=== PATIENT | female | born 1950 | race American Indian/Alaskan Native ===

== ENCOUNTER 2018-03-18 07:26 | Day surgery (SDC) | payer MEDICARE, OTHER, SELFPAY ==
[2018-03-18] VITALS (8 sets, daily range): BP systolic 105–133; BP diastolic 64–89; PULSE 72–98; RESP 12–20; TEMP 36.3–36.6; O2SAT 93–94; BMI 53.1
--- NOTE | 2018-03-18 | PATH_ITS ---
[facility] Accession Number: [id number] . 01 Material submitted: . POLYP AT CECUM . 02 Diagnosis: Cecum, Polyp, Biopsy: Tubulovillous adenoma. No evidence of malignancy or high-grade dysplasia. [facility]/03/22/2018 . 02 Electronically signed: . Tammy Gibbons MD, Pathologist NPI- [id number] . 01 Gross description: . POLYP AT CECUM: Received in formalin are 3 fragment(s) of marquis, soft tissue measuring 0.4 x 0.4 x 0.3 cm to 0.1 x 0.1 x 0.1 cm submitted entirely in 1 cassette(s) /TRC /TRC . 02 Pathologist provided ICD-10: D12.0 . 02 CPT . 947752 Performed at: 01 [facility] [address] [place] [address], [place], [place] [id number] MD Boom Bruno MD Phone: [phone] Performed at: 02 [facility] [address] [place], [place] [id number] MD Tommy Fried MD Phone: [phone]
[2018-03-18] MEDS: SODIUM CHLORIDE 0.9% 1,000 ML 200 ML IV (08:37)
--- NOTE | 2018-03-18 08:38 | SUR.PREOP ---
JUVENTINO LEON STARTED IV.
--- NOTE | 2018-03-18 09:10 | P.HP_ITS ---
History of Present Illness Chief complaint: colonoscopy [id number] Narrative: Merle Chu is a 67 year old female who had a recent episode of diverticulitis. This is with her 1st experience with diverticulitis and she has never had a colonoscopy. She presents today for her 1st screening study. Patient History Family & Social History Family History: Reviewed 03/18/18 by Alissa Weiner MD Social History: household members none Meds Home Medications Medication Instructions Recorded Confirmed Type ibuprofen [Advil] 200 mg PO PRN PRN 03/18/18 03/18/18 History insulin detemir U-100 [Levemir 4 unit SUB-Q PRN PRN 03/18/18 03/18/18 History FlexTouch U-100 Insuln] metformin 500 mg PO DAILY 03/18/18 03/18/18 History tramadol 50 mg PO Q6HP PRN 03/18/18 03/18/18 History Allergies Allergy/AdvReac Type Severity Reaction Status Date / Time adhesive [ADHESIVE] Allergy Severe RASH Verified 03/18/18 07:59 PAPER/SILK TAPE OK aspartame [ASPARTAME] Allergy Severe COMA Verified 03/18/18 08:38 iodine [IODINE] Allergy Severe SOB, RASH Verified 03/18/18 07:59 latex [LATEX] Allergy Severe RASH Verified 03/18/18 07:59 Sulfa (Sulfonamide Allergy Severe RASH Verified 03/18/18 07:59 Antibiotics) [SULFA (SULFONAMIDE ANTIBIOTICS)] codeine [CODEINE] AdvReac Severe PROJECTILE Verified 03/18/18 07:59 VOMITING hydrocodone [HYDROCODONE] AdvReac Severe PROJECTILE Verified 03/18/18 07:59 VOMITING oxycodone [From OXYCONTIN] AdvReac Severe PROJECTILE Verified 03/18/18 07:59 VOMITING Review of Systems Review of Systems All systems reviewed & are unremarkable except as noted in HPI and below Exam Vital Signs (past 8 hours): Vital Signs - 8 hr 3 03/18/18 08:22 Temperature 97.3 F L Pulse Rate 98 H Respiratory Rate 20 Blood Pressure 120/78 Pulse Oximetry 94 Pulse Oximetry 94 Oxygen Delivery Method Room Air Narrative Exam Narrative: Pleasant obese lady in no obvious distress HEENT: Normocephalic and atraumatic, pupils equal round reactive to light accommodation with anicteric sclera Lungs: Clear to auscultation bilaterally Heart: Regular rate and rhythm Abdomen: Soft, obese, active bowel sounds Extremities: Trace edema bilaterally Assessment & Plan Plan: Plan: Very pleasant 67-year-old lady here for screening colonoscopy. She has a recent episode of diverticulitis in all her symptoms are now resolved. We discussed the risks and benefits of the procedure the patient expresses desire to continue today
--- NOTE | 2018-03-18 09:24 | SUR.OPER ---
glasses in labeled container with patient to discharge.
--- NOTE | 2018-03-18 09:48 | PM.OP.1 ---
Operative Date/Time/Diagnoses - Date of procedure: 03/18/18 Time of procedure: 09:48 Pre-op diagnosis: Screening colonoscopy Diverticulitis Post-op diagnosis: same Procedure & Clinicians Procedure: Colonoscopy to the cecum with polypectomy x2 Same procedure as scheduled: Yes Indications: No prior colonoscopy Surgeon: Alissa Weiner Click Yes if Unassisted: Yes Anesthesia Type: Sedation (Versed 6 mg; fentanyl 200 mcg) Operative Notes Findings: 1. Adequate prep 2. Two polyps in the cecum. One was removed with cold forceps and the other was removed with snare cautery. The smaller with 1-2 mm and the larger with 5 mm 3. Significant sigmoid diverticulosis with some narrowing in the mid to distal sigmoid region. No true stricture or obstruction 4. No evidence of colitis or other mucosal abnormality 5. Grade 1 internal hemorrhoids Closure Type: not applicable Specimen(s): other (Two polyps from the cecum removed and submitted for pathology) Estimated Blood Loss (mL): 1 Procedure in detail: After obtaining informed consent, the patient was brought to the GI suite and placed in the left lateral decubitus position on the examination table. After placement of appropriate monitors, the patient was given incremental doses of Versed and Fentanyl until an appropriate level of sedation was achieved. A time out was held per SCOAP protocol. A digital rectal examination was performed and did not reveal any masses or obstructing lesions. The colonoscope was gently passed into the patient's anus and the entire colon navigated to the level of the cecum with minimal difficulty. Once in the cecum, the scope was withdrawn being sure to go before and beyond all mucosal folds and prominences and get an excellent examination. The findings are noted above. At the level of the rectal vault, the scope was retroflexed and the internal anal canal was examined. The scope was straightened and air aspirated from the colon. The instrument was removed from the patient's body and the procedure was concluded. The patient was allowed to awaken from sedation without difficulty and taken to the post-anesthesia care unit in good condition. Total sedation time 28 min Total withdrawal time 14 min Complications: none Condition: stable Disposition: PACU Plan for aftercare: 1. Discharge to home 2. Plan for next colonoscopy in 5 years or as clinically indicated 3. We will contact you by mail with pathology results and any other recommendations
[2018-03-18] MEDS: MIDAZOLAM 5 MG/5 ML VIAL 6 MG IV (09:56)
[2018-03-18] MEDS: fentaNYL 250 MCG/5 ML INJ IV (09:58)
--- NOTE | 2018-03-18 10:42 | SUR.PREOP ---
pt to opd , vss, resting, taking fliuds , waiting for ride , no co's
== END 2018-03-18 11:12 | disposition home or self-care (01) ==
PROVIDERS: Family Provider Family Medicine; PCP Family Medicine; Visit Provider Surgery
PROC: 0DJD8ZZ Inspection of Lower Intestinal Tract, Via Natural or Artificial Opening Endoscopic (ICD-10-PCS; CPT 45378; principal; 2018-03-18 08:45)
DX: Z12.11 Encounter for screening for malignant neoplasm of colon (principal); K57.30 Diverticulosis of large intestine without perforation or abscess without bleeding; K64.0 First degree hemorrhoids; D12.0 Benign neoplasm of cecum
CPT/HCPCS: 45385; 45380; 88305; 99152; 99153; J2250; J3010

== ENCOUNTER 2018-03-28 13:29 | Observation (INO) | payer MEDICARE, OTHER, SELFPAY ==
[2018-03-28] VITALS (10 sets, daily range): BP systolic 145–192; BP diastolic 74–95; PULSE 55–68; RESP 14–19; TEMP 36.7–36.8; O2SAT 96–99; BMI 64.0
--- NOTE | 2018-03-28 13:46 | DI.RAD.S_ITS ---
PROCEDURE: XR CHEST 1V INDICATIONS: chest pain TECHNIQUE: One view of the chest was acquired. COMPARISON: None. FINDINGS: Surgical changes and devices: None. Lungs and pleura: No pleural effusions or pneumothorax. Lungs are clear. Mediastinum: Mediastinal contours appear normal. Heart size is normal. Bones and chest wall: No suspicious bony lesions. Overlying soft tissues appear unremarkable. IMPRESSION: No acute disease Dictated by: Erick Costa M.D. on 03/28/2018 at 14:53 Approved by: Erick Costa M.D. on 03/28/2018 at 14:56
[2018-03-28 14:20] LABS: Add Manual Diff / Slide Review NO; Eosinophils Percent Auto 1.6 % (2-4); Hematocrit 40.1 % (36-46); Hemoglobin 13.7 g/dL (12.0-16.0); Lymphocytes Percent Auto 35.9 % (25-40); Mean Corpuscular HGB Conc 34.1 % (30-36); Mean Corpuscular Hemoglobin 30.7 PG (26-34); Mean Corpuscular Volume 89.8 fL (80-100); Monocytes Percent Auto 7.6 % (3-14); Neutrophils Absolute Auto 2700 /uL (3000-5900); Neutrophils Percent Auto 53.9 % (50-75); Platelet Count 203 X10^3/uL (150-400); Red Blood Cell Count 4.47 X10^6/uL (4.0-5.2); Red Cell Distribution Width 13.8 % (11.6-14.8)
[2018-03-28 14:25] LABS: INR 1.1 (0.9-1.3); Prothrombin Time 11.6 SECONDS (10.1-12.7)
[2018-03-28 14:28] LABS: PTT Partial Thromboplastin Tim 32 SECONDS (26.4-36.2)
[2018-03-28 14:29] LABS: Alanine Aminotransferase 23 IU/L (9-52); Albumin 3.7 g/dL (3.5-5.0); Albumin Globulin Ratio 0.9 (1.0-2.8); Alkaline Phosphatase 87 U/L (38-126); Aspartate Aminotransferase 25 IU/L (14-36); Bilirubin Total 0.9 mg/dL (0.2-1.3); Blood Urea Nitrogen 12 mg/dL (7-17); Calcium 8.8 mg/dL (8.4-10.2); Carbon Dioxide 30 mmol/L (22-32); Chloride 102 mmol/L (98-107); Creatine Kinase 67 U/L (30-135); Estimated Glomerular Filt Rate > 60.0 mL/min (>60); Globulin 3.9 g/dL (1.7-4.1); Glucose 105 mg/dL (80-110); HEMOLYSIS < 15 (0-50); Lipase 110 U/L (23-300); Potassium 3.8 mmol/L (3.4-5.1); Sodium 140 mmol/L (137-145); Total Protein 7.6 g/dL (6.3-8.2)
[2018-03-28 14:41] LABS: Troponin I < 0.012 ng/mL (0.01-0.034)
[2018-03-28] MEDS: SODIUM CHLORIDE 0.9% 1,000 ML 1000 ML IV ×2 (14:48→17:13)
--- NOTE | 2018-03-28 15:35 | DI.CT.S_ITS ---
PROCEDURE: CT HEAD/BRAIN WO CON INDICATIONS: dizziness, GARCIA TECHNIQUE: Noncontrast 4.5 mm thick angled axial sections acquired from the foramen magnum to the vertex, with coronal and sagittal reformats. For radiation dose reduction, the following was used: automated exposure control, adjustment of mA and/or kV according to patient size. COMPARISON: None. FINDINGS: Image quality: Excellent. CSF spaces: Basal cisterns are patent. No extra-axial fluid collections. The ventricles are symmetric in size and shape. Brain: No intracranial bleeds or masses. There is cerebral volume loss for age, with resultant ventricular and sulcal prominence. There are periventricular and deep white matter chronic small vessel ischemic changes. There is intracranial internal carotid artery atherosclerosis. Skull and face: Calvarium and visualized facial bones appear intact, without suspicious lesions. There is hyperostosis frontalis. Sinuses: Visualized sinuses and mastoids are clear. IMPRESSION: No acute intracranial process Dictated by: Erick Costa M.D. on 03/28/2018 at 15:58 Approved by: Erick Costa M.D. on 03/28/2018 at 16:01
--- NOTE | 2018-03-28 17:24 | DI.CT.S_ITS ---
PROCEDURE: CT ANGIO HEAD AND NECK INDICATIONS: persistent dizziness TECHNIQUE: Pre-contrast 4.5 mm thick sections acquired from the foramen magnum to the vertex. After the administration of intravenous contrast, 1 mm thick sections acquired from the aortic arch through the [place] of [place]. Post-contrast 4.5 mm thick sections then re-acquired from the foramen magnum to the vertex. 3-dimensional pzuzjql-bdfncaolj-fsjpbvoppl (MIP) and/or volume rendering reformats were acquired of the central intracranial vasculature and neck separately. COMPARISON: [facility], CT, CT HEAD/BRAIN WO CON, 03/28/2018, 15:32. FINDINGS: Image quality: Excellent. BRAIN: CSF spaces: Ventricles are normal in size and shape. Basal cisterns are patent. No extra-axial fluid collections. Brain: No midline shift. No intracranial bleeds or masses. Cross-white matter interface appears intact. Skull and face: Calvarium and facial bones appear intact, without suspicious lesions. Orbits appear normal. Sinuses: Sinuses and mastoids are clear. HEAD CT ANGIOGRAPHY: Anterior circulation: Intracranial internal carotid arteries are normal in size and flow. The flow within the paired anterior cerebral arteries is normal and symmetric. The flow within the middle cerebral arteries is normal and symmetric. The anterior communicating artery is seen. No aneurysms are seen. Posterior circulation: Visualized portions of the vertebral arteries demonstrate normal caliber, and join to form a normal appearing basilar artery. Flow within the posterior cerebral arteries is normal and symmetric. No aneurysms are seen. NECK CT ANGIOGRAPHY: Carotid system: The great vessels demonstrate a conventional anatomy as they arise from the aortic arch. The origins of the common carotid arteries appear patent. The common carotid arteries demonstrate normal caliber and courses. The bifurcation regions are both widely patent. The internal carotid arteries demonstrate normal calibers and courses. Posterior circulation: The origins of the vertebral arteries both appear widely patent. The more superior extracranial portions of both vertebral arteries also demonstrate normal courses and calibers. They join to form a normal appearing basilar artery. Soft tissues: Visualized neck soft tissues demonstrate no suspicious abnormalities. Bones: No suspicious bony lesions. Visualized cervical spine appears normally aligned. IMPRESSION: Negative head CTA. Negative neck CTA. No ICA stenosis. Any quantitative measurements of stenosis were performed using NASCET criteria. Dictated by: Erick Costa M.D. on 03/28/2018 at 18:55 Approved by: Erick Costa M.D. on 03/28/2018 at 18:59
--- NOTE | 2018-03-28 17:45 | PC.NURSE ---
CT Angio of head and neck
--- NOTE | 2018-03-28 18:04 | ED_ITS ---
HPI - Arrhythmia/Palpitations General Chief Complaint: Arrhythmia/Palpitations Stated Complaint: Pt states constant light headed and dizziness Time Seen by Provider: 03/28/18 13:53 Source: patient and family Mode of arrival: ambulatory Limitations: no limitations History of Present Illness HPI narrative: Patient presents to the emergency department today with a chief complaint of feeling dizzy more often than not since about 4 weeks ago. She has complained of dizziness upon standing despite any nausea, vomiting or diarrhea. She denies any upper respiratory symptoms including runny nose, sore throat or cough. She denies any recent trauma or other injury. She denies focal neurologic findings such as numbness, tingling or weakness. She does state that her dizziness became a bit worse last night hence her visit to the emergency department today. She complains of seemingly random episodes of palpitations without provocation or palliation. And none yet today. MD complaint: palpitations Onset (ago): week(s) Duration: now resolved Severity: moderate Related Data Home Medications Medication Instructions Recorded Confirmed No Known Home Medications 03/28/18 03/28/18 Allergies Allergy/AdvReac Type Severity Reaction Status Date / Time adhesive [ADHESIVE] Allergy Severe RASH Verified 03/18/18 07:59 PAPER/SILK TAPE OK aspartame [ASPARTAME] Allergy Severe COMA Verified 03/18/18 08:38 iodine [IODINE] Allergy Severe SOB, RASH Verified 03/18/18 07:59 latex [LATEX] Allergy Severe RASH Verified 03/18/18 07:59 Sulfa (Sulfonamide Allergy Severe RASH Verified 03/18/18 07:59 Antibiotics) [SULFA (SULFONAMIDE ANTIBIOTICS)] codeine [CODEINE] AdvReac Severe PROJECTILE Verified 03/18/18 07:59 VOMITING hydrocodone [HYDROCODONE] AdvReac Severe PROJECTILE Verified 03/18/18 07:59 VOMITING oxycodone [From OXYCONTIN] AdvReac Severe PROJECTILE Verified 03/18/18 07:59 VOMITING Review of Systems Review of Systems All systems reviewed & are unremarkable except as noted in HPI and below Constitutional Denies chills, Denies fever(s), Denies lethargy and Denies weakness Eyes Denies change in vision, Denies eye discharge, Denies irritation and Denies loss of vision ENT Ears, Nose, Mouth, and Throat: Denies change in voice, Reports dizziness, Denies neck pain and Denies sore throat Cardiovascular Denies chest pain, Denies irregular heart rhythm, Denies lightheadedness, Denies palpitations, Denies dyspnea, Denies dyspnea on exertion and Denies orthopnea Respiratory Denies cough, Denies dyspnea, Denies dyspnea on exertion and Denies wheezing Gastrointestinal Gastrointestinal: Denies abdominal pain, Denies change in bowel habits, Denies diarrhea, Denies nausea and Denies vomiting Genitourinary Denies hematuria, Denies flank pain, Denies urinary incontinence and Denies urinary urgency Musculoskeletal Denies neck pain Integumentary/Breasts Denies pruritus, Denies erythema, Denies rash and Denies wounds Neurologic Denies confusion, Reports dizziness, Denies loss of vision and Denies weakness Psychiatric Denies anxiety, Denies confusion, Denies depression, Denies homicidal ideation and Denies suicidal ideation Endocrine Denies palpitations Hematologic/Lymphatic Denies easy bruising Allergic/Immunologic Denies wheezing PFSH Social History household members: none Exam Narrative Exam Narrative: 67-year-old female resting comfortably in no obvious distress Initial Vital Signs Initial Vital Signs: Vital Signs Temperature 98.1 F 03/28/18 13:34 Pulse Rate 67 03/28/18 13:34 Respiratory Rate 16 03/28/18 13:34 Blood Pressure 160/95 H 03/28/18 13:34 Pulse Oximetry 96 03/28/18 13:34 Const General: cooperative and well developed Nutritional Appearance: well nourished and obese Orientation: alert, awake, oriented x3 and not confused [facility] Head: normocephalic and atraumatic Ears: external ears normal and TM's normal bilaterally Nose: external nose normal and No nasal discharge Face and sinus: sinuses nontender, face symmetric, no sinus tenderness and No dry mucous membranes Mouth: oral mucosae normal and moist mucous membranes Teeth and gingiva: dentition normal Throat: tonsils normal and uvula midline Eyes General: appearance normal, both eyes and all related structures Eyelids: eyelids normal Conjunctivae: conjunctivae normal Sclera: sclerae normal Pupils: PERRL EOM: EOM intact bilaterally Chest Chest: normal inspection of the chest Cardio Rate: regular rate Rhythm: regular rhythm Heart Sounds: no click, no gallops, no murmurs and no rubs Pulses: normal peripheral pulses Back/Spine/Pelvis Back: No CVA tenderness Cervical Spine: cervical ROM normal and No pain with cervical ROM Thoracic/Lumbar Spine: thoracic and lumbar spine normal to inspection Neuro General: alert, oriented x3 and no focal motor deficits Speech: speech normal Motor: muscle tone normal throughout Sensory Exam: no sensory deficits noted Coordination: [id number] test normal and [id number] test normal Extrem General: full ROM, no clubbing, cyanosis or edema, no pedal edema and no calf tenderness Course Orders Ordered: ED Orders 03/28/18 13:46 XR chest 1V Stat EKG-12 Lead Stat 03/28/18 14:10 Complete Blood Count AUTO DIFF Stat Comprehensive Metabolic Panel Stat Lipase Stat Partial Thromboplastin Time Stat Prothrombin Time INR Stat Troponin with CK Cardiac Panel Stat 03/28/18 15:35 CT head/brain wo con Stat 03/28/18 17:24 CT angio head and neck Stat Discontinued Medications Aspirin (Aspirin Chew) 324 mg PO NOW ONE Stop: 03/28/18 18:50 Last Admin: 03/28/18 18:54 Dose: 324 mg Sodium Chloride (Normal Saline 0.9%) 1,000 mls @ 1,000 mls/hr IV BOLUS ONE Stop: 03/28/18 15:43 Last Infusion: 03/28/18 17:09 Dose: 0 mls/hr Admin: 03/28/18 14:48 Dose: 1,000 mls/hr Sodium Chloride (Normal Saline 0.9%) 1,000 mls @ 1,000 mls/hr IV BOLUS ONE Stop: 03/28/18 16:35 Last Infusion: 03/28/18 18:51 Dose: 0 mls/hr Admin: 03/28/18 17:13 Dose: 1,000 mls/hr Labetalol HCl (Trandate) 10 mg IV NOW ONE Stop: 03/28/18 18:22 Last Admin: 03/28/18 18:24 Dose: 10 mg Meclizine HCl (Antivert) 25 mg PO NOW ONE Stop: 03/28/18 18:43 Last Admin: 03/28/18 18:47 Dose: 25 mg Reevaluation(s) Reevaluation #1: if anything patient is becoming more dizzy. She describes her dizziness both as lightheadedness/near syncope and as if the room is spinning. Vital Signs - 8 hr 03/28/18 13:34 03/28/18 14:04 03/28/18 17:18 Temperature 98.1 F Pulse Rate 67 55 L 55 L Respiratory Rate 16 18 19 Blood Pressure 160/95 H Blood Pressure [Left Arm] 146/91 H 149/74 H Pulse Oximetry 96 99 97 03/28/18 18:20 03/28/18 18:33 03/28/18 18:42 Temperature Pulse Rate 56 L 65 63 Respiratory Rate 14 14 14 Blood Pressure Blood Pressure [Left Arm] 192/89 H 157/93 H 166/92 H Pulse Oximetry 97 97 03/28/18 18:52 Temperature Pulse Rate 68 Respiratory Rate Blood Pressure 166/92 H Blood Pressure [Left Arm] Pulse Oximetry MDM - Arrhythmia/Palpitations Differential Diagnosis Differential diagnosis: Likely palpitations, anxiety, sinus tachycardia, artial fibrillation, artial flutter, ventricular premature beats, supraventricular tachycardia, ventricular tachycardia, WPW and other (Stroke, TIA, benign paroxysmal positional vertigo, vestibular neuritis, versus other) Medical Records Attestation: I reviewed the patient's medical records. Lab Data Attestation: I reviewed the patient's lab results. Result diagrams: 03/28/18 14:10 03/28/18 14:10 Lab Results 03/28/18 03/28/18 03/28/18 Range/Units 14:10 14:10 14:10 WBC 5.0 (4.5-11.0) X10^3/uL RBC 4.47 (4.0-5.2) X10^6/uL Hgb 13.7 (12.0-16.0) g/dL Hct 40.1 (36-46) % MCV 89.8 (80-100) fL MCH 30.7 (26-34) PG MCHC 34.1 (30-36) % RDW 13.8 (11.6-14.8) % Plt Count 203 (150-400) X10^3/uL Neut % (Auto) 53.9 (50-75) % Lymph % (Auto) 35.9 (25-40) % Wilson % (Auto) 7.6 (3-14) % Eos % (Auto) 1.6 L (2-4) % Baso % (Auto) 1.0 (0-2) % Neut # (Auto) 2700 L (2428-2582) /uL PT 11.6 (10.1-12.7) SECONDS INR 1.1 (0.9-1.3) APTT 32 (26.4-36.2) SECONDS Sodium 140 (137-145) mmol/L Potassium 3.8 (3.4-5.1) mmol/L Chloride 102 (98-107) mmol/L Carbon Dioxide 30 (22-32) mmol/L BUN 12 (7-17) mg/dL Creatinine 0.50 L (0.52-1.04) mg/dL Estimated GFR > 60.0 (>60) mL/min BUN/Creatinine Ratio 24.0 H (6-22) Glucose 105 (80-110) mg/dL Calcium 8.8 (8.4-10.2) mg/dL Total Bilirubin 0.9 (0.2-1.3) mg/dL AST 25 (14-36) IU/L ALT 23 (9-52) IU/L Alkaline Phosphatase 87 (38-126) U/L Total Creatine Kinase 67 (30-135) U/L Troponin I < 0.012 (0.01-0.034) ng/mL Total Protein 7.6 (6.3-8.2) g/dL Albumin 3.7 (3.5-5.0) g/dL Globulin 3.9 (1.7-4.1) g/dL Albumin/Globulin Ratio 0.9 L (1.0-2.8) Lipase 110 (23-300) U/L Imaging Data CTA Head Neck: Radiologist's impression: PROCEDURE: CT ANGIO HEAD AND NECK INDICATIONS: persistent dizziness TECHNIQUE: Pre-contrast 4.5 mm thick sections acquired from the foramen magnum to the vertex. After the administration of intravenous contrast, 1 mm thick sections acquired from the aortic arch through the [place] of [place]. Post-contrast 4.5 mm thick sections then re- acquired from the foramen magnum to the vertex. 3-dimensional maximum-intensity- projection (MIP) and/or volume rendering reformats were acquired of the central intracranial vasculature and neck separately. COMPARISON: [facility], CT, CT HEAD/BRAIN WO CON, 03/28/2018, 15:32. FINDINGS: Image quality: Excellent. BRAIN: CSF spaces: Ventricles are normal in size and shape. Basal cisterns are patent. No extra-axial fluid collections. Brain: No midline shift. No intracranial bleeds or masses. Cross-white matter interface appears intact. Skull and face: Calvarium and facial bones appear intact, without suspicious lesions. Orbits appear normal. Sinuses: Sinuses and mastoids are clear. HEAD CT ANGIOGRAPHY: Anterior circulation: Intracranial internal carotid arteries are normal in size and flow. The flow within the paired anterior cerebral arteries is normal and symmetric. The flow within the middle cerebral arteries is normal and symmetric. The anterior communicating artery is seen. No aneurysms are seen. Posterior circulation: Visualized portions of the vertebral arteries demonstrate normal caliber, and join to form a normal appearing basilar artery. Flow within the posterior cerebral arteries is normal and symmetric. No aneurysms are seen. NECK CT ANGIOGRAPHY: Carotid system: The great vessels demonstrate a conventional anatomy as they arise from the aortic arch. The origins of the common carotid arteries appear patent. The common carotid arteries demonstrate normal caliber and courses. The bifurcation regions are both widely patent. The internal carotid arteries demonstrate normal calibers and courses. Posterior circulation: The origins of the vertebral arteries both appear widely patent. The more superior extracranial portions of both vertebral arteries also demonstrate normal courses and calibers. They join to form a normal appearing basilar artery. Soft tissues: Visualized neck soft tissues demonstrate no suspicious abnormalities. Bones: No suspicious bony lesions. Visualized cervical spine appears normally aligned. IMPRESSION: Negative head CTA. Negative neck CTA. No ICA stenosis. Any quantitative measurements of stenosis were performed using NASCET criteria. Dictated by: Erick Costa M.D. on 03/28/2018 at 18:55 Approved by: Erick Costa M.D. on 03/28/2018 at 18:59 ECG Data Attestation: I personally reviewed and interpreted this ECG as follows: Prior ECG tracings: not available for review Interpretation: EKG is normal sinus rhythm and free of any signs of ischemia or ectopy. MDM Narrative Medical decision making narrative: Patient continues to have dizziness and states the room is spinning in addition to feeling near syncopal despite therapies. Extensive lab workup shows little to no abnormalities. She is obese with poorly controlled hypertension and diabetes and there is certainly a risk cerebellar type infarct. CT of head and CTA head and neck angiogram has been ordered. Patient is aspirin. She shows no focal findings or even measurable ataxia on exam. She is too weak and dizzy to get out of the cart and certainly cannot go. She needs hospitalization to further characterize and stabilize her condition Discharge Plan Departure Patient Disposition: Admitted as Observation Clinical Impression: Dizziness, Vertigo Instructions: Dizziness, Nonvertigo Additional Instructions: There is no evidence of an emergent or life threatening illness at this time, but follow up with your doctor in 1-2 days is recommended nonetheless to continue to rule out serious underlying causes of your symptoms. Please call the office for an appointment. Please return to the Emergency Department for any worsening or persistent symptoms. Please take medications as directed. Referrals: Kylie Watt DO [Primary Care Provider] -
[2018-03-28] MEDS: LABETALOL 20 MG/4 ML SYRINGE 10 MG IV (18:24)
[2018-03-28] MEDS: MECLIZINE HCL 12.5 MG TABLET 25 MG PO (18:47)
[2018-03-28] MEDS: ASPIRIN 81 MG TAB 324 MG PO (18:54)
--- NOTE | 2018-03-28 21:15 | PC.NURSE ---
Patient admitted from ER per stretcher. several weeks of dizziness. able to ambulated to bathroom with standby assistance- holding onto topete enroute. 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 reviewed plan of care- call for assistance.
[2018-03-29] VITALS (7 sets, daily range): BP systolic 123–158; BP diastolic 58–79; PULSE 59–70; RESP 14–20; TEMP 36.2–37.1; O2SAT 94–97
--- NOTE | 2018-03-29 00:20 | PC.NURSE ---
Addendum entered by Mary Archuleta R.N. 03/29/18 06:07: Slept most of shift. 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 Patient reports lightheadedness remains about the same. Denies pain. While up bed was rezeroed and now weight appears to have dropped 13kg; assume admission weight was incorrect. Tele reading at 0400 was SR Original Note: Alert and oriented. Complains of dizziness/room spinning with any head movement. Breath sounds CTA with RA sat of 96%. HRR with rate of 64 on room VS monitor; telemetry reading was SR/SB. Denies all but slight nausea but declines intervention. BT present and abdomen is soft. Denies dysuria, frequency, urgency or incontinence. Independent with bed mobility. Due to potential for fall related to vertigo, patient is assisted when up to bathroom and bed alarm is activated. Denies any pain.
[2018-03-29] MEDS: SODIUM CHLORIDE 0.9% FLUSH 10 ML IV ×2 (09:00→20:22)
--- NOTE | 2018-03-29 09:42 | P.HP_ITS ---
History of Present Illness Date Patient Seen: 03/29/18 Time Patient Seen: 09:00 Chief complaint: Dizziness/ Vertigo Narrative: 67-year-old female with history of type II diabetes, who presented to the ER yesterday for vertigo. She has been having intermittent vertigo for about 2 weeks. Initially she noticed her symptoms mostly in the morning when she tried to sit up from lying position. The vertigo resolves after she sits still for a few minutes. Her symptom has progressively gotten worse. Two nights ago, when she laid down to her bed, the entire room was spinning. The next morning when her friend came to pick her up to go to the synagogue, she mentioned to her friend that she was having vertigo. She was subsequently brought to the [facility] Emergency Room. She received a full-dose aspirin.. Noncontrast head CT and CT angiogram did not reveal intracranial lesions that could be causing her vertigo. She was admitted to the medicine floor for observation. Patient continued to have vertigo, however she is able to ambulate independently. Her blood pressure was noticed to be elevated yesterday at the ER. She did receive labetalol IV as needed. Her blood pressure is currently in the normal range. Patient History Comment: 1. Type 2 diabetes: She with some metformin and sulfonylurea in the past. Currently she is off all her medications and on diet control. 2. Diverticulitis in December of 2017 3. Adenomatous polyp in the colon, had colonoscopy 2 weeks ago 4. Obesity 5. Status post cholecystectomy 6. Status post hysterectomy and bilateral salpingo-oophorectomy for uterine cancer 7. Osteoarthritis, Status post left total knee arthroplasty Family & Social History Social History: household members none Prior Living Arrangements Apartment/Condo Safety & Behavioral: Feels Safe in Current Yes Environment Been Physically Hurt or No Threatened By a Person Suicidal Ideation Description None Suicide Plan Description No Plan Tobacco & Substance use: Smoking Status Never smoker alcohol intake never alcohol intake frequency holiday/special occasion Substance Use Type does not use Comment: She is . She lives by herself. She has a daughter who lives in [place]. Denies alcohol drinking or cigarette smoking. Family history: She was adopted Meds Home Medications Medication Instructions Recorded Confirmed Type No Known Home Medications 03/28/18 03/28/18 History Allergies Allergy/AdvReac Type Severity Reaction Status Date / Time adhesive [ADHESIVE] Allergy Severe RASH Verified 03/18/18 07:59 PAPER/SILK TAPE OK aspartame [ASPARTAME] Allergy Severe COMA Verified 03/18/18 08:38 iodine [IODINE] Allergy Severe SOB, RASH Verified 03/18/18 07:59 latex [LATEX] Allergy Severe RASH Verified 03/18/18 07:59 Sulfa (Sulfonamide Allergy Severe RASH Verified 03/18/18 07:59 Antibiotics) [SULFA (SULFONAMIDE ANTIBIOTICS)] codeine [CODEINE] AdvReac Severe PROJECTILE Verified 03/18/18 07:59 VOMITING hydrocodone [HYDROCODONE] AdvReac Severe PROJECTILE Verified 03/18/18 07:59 VOMITING oxycodone [From OXYCONTIN] AdvReac Severe PROJECTILE Verified 03/18/18 07:59 VOMITING Review of Systems Constitutional Comments: No fever chills or sweats Cardiovascular Cardiovascular: Reports slow heart rate Comments: Denies chest pain or shortness of breath Respiratory Comments: No coughing or wheezing Gastrointestinal Comments: Denies abdominal pain Genitourinary Comments: No dysuria Neurologic Neurologic: Reports as per HPI Exam Vital Signs (past 8 hours): Vital Signs - 8 hr 3 03/29/18 05:50 03/29/18 08:00 Temperature 97.8 F 98.8 F Pulse Rate 63 59 L Respiratory Rate 20 14 Blood Pressure 125/75 H 137/74 H Pulse Oximetry 97 94 Pulse Oximetry 94 Oxygen Delivery Method Room Air Oxygen Flow Rate 0 Narrative Exam Narrative: GENERAL: Obese middle-aged woman in no acute distress. HEENT: Head normocephalic, atraumatic. Eyes pupils equal round NECK: Supple, no JVD, CHEST: Breath sounds equal bilaterally, no wheezes rales or rhonchi. CARDIAC: Regular rate and rhythm without murmurs, rubs or gallops. ABDOMEN: Soft, nontender. Normoactive bowel sounds all 4 quadrants. No guarding or rebound. EXTREMITIES: Normal range of motion, no clubbing, trace to 1+ edema on bilateral ankles. NEUROLOGICAL: Alert and oriented; cranial nerves 3-12 were intact, Normal muscle strength on upper and lower extremities. SKIN: Warm, dry, no petechiae, no rashes or lesions. Objective Imaging CT scan - head: Radiologist's impression: No acute intracranial process head CTA: Radiologist's impression: Negative head CTA. Negative neck CTA. No ICA stenosis. Any quantitative measurements of stenosis were performed using NASCET criteria. Labs Result Diagrams: 03/28/18 14:10 03/28/18 14:10 Labs: Laboratory Results - last 24 hr 03/28/18 03/28/18 03/28/18 14:10 14:10 14:10 WBC 5.0 RBC 4.47 Hgb 13.7 Hct 40.1 MCV 89.8 MCH 30.7 MCHC 34.1 RDW 13.8 Plt Count 203 Neut % (Auto) 53.9 Lymph % (Auto) 35.9 [place] % (Auto) 7.6 Eos % (Auto) 1.6 L Baso % (Auto) 1.0 Neut # (Auto) 2700 L PT 11.6 INR 1.1 APTT 32 Sodium 140 Potassium 3.8 Chloride 102 Carbon Dioxide 30 BUN 12 Creatinine 0.50 L Estimated GFR > 60.0 BUN/Creatinine Ratio 24.0 H Glucose 105 Calcium 8.8 Total Bilirubin 0.9 AST 25 ALT 23 Alkaline Phosphatase 87 Total Creatine Kinase 67 Troponin I < 0.012 Total Protein 7.6 Albumin 3.7 Globulin 3.9 Albumin/Globulin Ratio 0.9 L Lipase 110 Assessment & Plan Plan: Assessment/Plan Narrative: 1. Severe vertigo: Likely benign positional vertigo. We will have Physical therapy evaluate and treat. Possible otolith repositioning maneuver by physical therapy. Continue meclizine as needed for symptomatic control. Possible discharge later today if she has improvement of her symptoms. 2. Type 2 diabetes: Diet controlled. Her fingerstick glucose has been in good range, around 87-120. We will continue monitor her fingerstick glucose readings. 3. Morbid Obesity: BMI 45.4. She needs lifestyle modifications and weight loss as outpatient. 4. Elevated blood pressure readings: Her blood pressure was normal as outpatient. Her eyelid with a blood pressure may be related to stress and possible anxiety. Her blood pressure is currently normal. We will continue monitor. 5. Code status: DNR/DNI. Code status was discussed with patient herself. Quality VTE Deep Vein Thrombosis/Pulmonary Embolism Present on Admission: No
--- NOTE | 2018-03-29 12:58 | PT.IIE ---
Physical Therapy Inpatient Evaluation/Re-Eval M1 PT/OT-IP Prior Functional Status Start: 03/29/18 11:15 Freq: NEEDED Status: Active Protocol: Document 03/29/18 10:30 AMB (Rec: 03/29/18 12:43 AMB [email or web address]) Medical Review Prior Functional Status Medical History Reviewed Yes Prior Functional Level (Other details) Independet with all IADLS Social History Household Members none Living Arrangements Apartment/Condo Number of Stairs To Enter/Railing? 5 to enter with 1 railing Home Environment Tub/Shower Employment Status Maintenance And Utilities Supervisor Employed Additional Social History Comment Lives alone, has a friend from [place] who can drive her home M2 PT-IP Current Condition Start: 03/29/18 12:43 Freq: NEEDED Status: Active Protocol: Document 03/29/18 10:30 AMB (Rec: 03/29/18 12:58 AMB [email or web address]) Physical Therapy Current Condition Current Condition Evaluation Date 03/29/18 Treatment Diagnosis BPPV Onset Date 2 weeks ago, got worse on Thursday Precautions Other Precautions Post maneuver precautions: avoiding R sidelying, keep HOB elevated 30 degrees, no tilting head back or big bends forward. M3 PT-IP Subjective Start: 03/29/18 12:43 Freq: NEEDED Status: Active Protocol: Document 03/29/18 10:30 AMB (Rec: 03/29/18 12:58 AMB [email or web address]) Subjective Physical Therapy Visit Type Type Initial Evaluation Visit Start Time 10:40 Visit Stop Time 11:15 Total Visit Minutes 35 Physical Therapy Visit Comments Patient Comments Patient feels dizzy, states dizziness lasts about 15 minutes after she moves her head Therapy Pain Assessment Pain When Pain Assessed At Rest Pain Present Pain Present Pain Reported Location Left Lateral Back Description Aching M4 PT-IP Mobility and Gait Start: 03/29/18 12:43 Freq: NEEDED Status: Active Protocol: Document 03/29/18 10:30 AMB (Rec: 03/29/18 12:58 AMB [email or web address]) PT-Bed Mobility Assessment Rolling Type of Rolling Roll to Left Level of Assist Independent Supine to Sit Supine to Sit Standby Assistance Scooting Scooting to Edge of Bed Standby Assistance Scooting Up and Down in Bed Standby Assistance Functional Assessments Other Functional Tests Performed R DixHallpike upbeating torsional nystagmus 10 seconds . L DixHallpike no nystagmus. Pt reports dizziness with saccades, and head trust bilaterally. M6 PT-IP Treatment Start: 03/29/18 12:43 Freq: NEEDED Status: Active Protocol: Document 03/29/18 10:30 AMB (Rec: 03/29/18 12:58 AMB [email or web address]) Physical Therapy Treatment Education Education Provided Precautions Other Treatments Other Treatment Performed R Christina manuever M7 PT-IP Assessment and Plan Start: 03/29/18 12:43 Freq: NEEDED Status: Active Protocol: Document 03/29/18 10:30 AMB (Rec: 03/29/18 12:58 AMB [email or web address]) PT Summary Assessment and Plan Potential Rehabilitation Potential Good Status of Condition at Evaluation Evolving Summary Impairments Balance Assessment Summary The patient presented with torsional upbeating nystagmus with R DixHallpike. 1 Christina maneuver was performed. The patient would not tolerate a repeat Christina maneuver. She was instructed to follow up with her PCP and seek outpatient vestibular treatment. She lives in [place] and would prefer PT there if possible. She was very symptomatic during treatment, we are hoping that her symptoms will calm down ( but likely not resolve for a few days). Assuming that her symptoms decrease she should be able to discharge home. Goals Bed Mobility Goal Independent Transfer Goal Independent Gait Goal Independent Days to Meet Goals 2 Frequency of Treatment Frequency Of Treatment Twice a Day Treatment Plan Other Recommendations and Next Treatment Repeat Christina manuever if able, Focus assess safety with gait for safe discharge home alone. Recommendations To Nursing Amount of Assist Needed 1 Person Assist Discharge Recommendations PT Discharge Recommendations Home Other Discharge Recommendations Follow up with outpatient vestibular therapy Provider Visit Care Team Role Provider Type Kylie Watt DO Family Provider Non-Staff Primary Care Provider Specialty: Family Practice Charles Veloz DO Emergency Provider Physician Specialty: Emergency Medicine Brian Ruvalcaba MD Admit Provider Physician Attending Provider Specialty: Internal Medicine
[2018-03-29] MEDS: ACETAMINOPHEN 325 MG TABLET 650 MG PO (13:50)
[2018-03-29] MEDS: SODIUM CHLORIDE 0.9% 1,000 ML 100 ML IV (16:40)
--- NOTE | 2018-03-29 16:48 | PT.IPTN ---
Physical Therapy Treatment Note M2 PT-IP Current Condition Start: 03/29/18 12:43 Freq: NEEDED Status: Active Protocol: Document 03/29/18 10:30 AMB (Rec: 03/29/18 12:58 AMB [email or web address]) Physical Therapy Current Condition Current Condition Evaluation Date 03/29/18 Treatment Diagnosis BPPV Onset Date 2 weeks ago, got worse on Thursday Precautions Other Precautions Post manuever precautions: avoiding R sidelying, keep HOB elevated 30 degrees, no tilting head back or big bends forward. M3 PT-IP Subjective Start: 03/29/18 12:43 Freq: NEEDED Status: Active Protocol: Document 03/29/18 16:46 TMS (Rec: 03/29/18 16:47 TMS [id number]) Subjective Physical Therapy Visit Type Type Patient Refusal Physical Therapy Visit Comments Patient Comments Pt. states she's too dizzy to walk this afternoon, not ready to attempt. P.T. will see in AM. M4 PT-IP Mobility and Gait Start: 03/29/18 12:43 Freq: NEEDED Status: Active Protocol: Document 03/29/18 10:30 AMB (Rec: 03/29/18 12:58 AMB [email or web address]) PT-Bed Mobility Assessment Rolling Type of Rolling Roll to Left Level of Assist Independent Supine to Sit Supine to Sit Standby Assistance Scooting Scooting to Edge of Bed Standby Assistance Scooting Up and Down in Bed Standby Assistance Functional Assessments Other Functional Tests Performed R DixHallpike upbeating torsional nystagmus 10 seconds . L DixHallpike no nystagmus. Pt reports dizziness with saccades, and head trust bilaterally. M6 PT-IP Treatment Start: 03/29/18 12:43 Freq: NEEDED Status: Active Protocol: Document 03/29/18 10:30 AMB (Rec: 03/29/18 12:58 AMB [email or web address]) Physical Therapy Treatment Education Education Provided Precautions Other Treatments Other Treatment Performed R Christina manuever M7 PT-IP Assessment and Plan Start: 03/29/18 12:43 Freq: NEEDED Status: Active Protocol: Document 03/29/18 10:30 AMB (Rec: 03/29/18 12:58 AMB [email or web address]) PT Summary Assessment and Plan Potential Rehabilitation Potential Good Status of Condition at Evaluation Evolving Summary Impairments Balance Assessment Summary The patient presented with torsional upbeating nystagmus with R DixHallpike. 1 Christina manuever was performed. The patient would not tolerate a repeat Christina maneuver. She was instructed to follow up with her PCP and seek outpatient vestibular treatment. She lives in [place] and would prefer PT there if possible. She was very symptomatic during treatment, we are hoping that her symptoms will calm down ( but likley not resolve for a few days). Assuming that her symptoms decrease she should be able to discharge home. Goals Bed Mobility Goal Independent Transfer Goal Independent Gait Goal Independent Days to Meet Goals 2 Frequency of Treatment Frequency Of Treatment Twice a Day Treatment Plan Other Recommendations and Next Treatment Repeat Christina manuever if able, Focus assess safety with gait for safe discharge home alone. Recommendations To Nursing Amount of Assist Needed 1 Person Assist Discharge Recommendations PT Discharge Recommendations Home Other Discharge Recommendations Follow up with outpatient vestibular therapy
[2018-03-30] MEDS: MECLIZINE HCL 12.5 MG TABLET 25 MG PO ×2 (02:03→09:44)
[2018-03-30 04:00] VITALS: BP 136/63; PULSE 63; RESP 16; TEMP 36.4; O2SAT 94
[2018-03-30] MEDS: SODIUM CHLORIDE 0.9% 1,000 ML 100 ML IV (06:04)
--- NOTE | 2018-03-30 06:07 | PC.NURSE ---
Patient given Meclizine earlier for continued vertigo and now states she thinks the lightheadedness and room spinning is not quite as bad but is still present. Does complain of 4/10 headache but declines intervention at this time.
[2018-03-30 08:00] VITALS: BP 155/82; PULSE 58; RESP 17; TEMP 36.6; O2SAT 95
--- NOTE | 2018-03-30 08:29 | PT.IPTN ---
Physical Therapy Treatment Note M2 PT-IP Current Condition Start: 03/29/18 12:43 Freq: NEEDED Status: Active Protocol: Document 03/29/18 10:30 AMB (Rec: 03/29/18 12:58 AMB [email or web address]) Physical Therapy Current Condition Current Condition Evaluation Date 03/29/18 Treatment Diagnosis BPPV Onset Date 2 weeks ago, got worse on Thursday Precautions Other Precautions Post maneuver precautions: avoiding R sidelying, keep HOB elevated 30 degrees, no tilting head back or big bends forward. 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 She rates her dizziness as 8/10. M4 PT-IP Mobility and Gait Start: 03/29/18 12:43 Freq: NEEDED Status: Active Protocol: Document 03/30/18 08:23 AMB (Rec: 03/30/18 08:27 AMB [email or web address]) PT-Bed Mobility Assessment Rolling Type of Rolling Roll to Right Level of Assist Independent Supine to Sit Supine to Sit Independent Scooting Scooting to Edge of Bed Standby Assistance PT-Transfer Assessment Sit to and From Stand Sit to and from Stand Independent Equipment Transfer Assistive Device Front Wheeled Walker Transfer Ability Level of Assist Standby Assistance Gait Assessment Gait Gait Assistance Required: Standby Assistance Distance (Feet) (feet) 20 Assistive Devices Assistive Device Front Wheeled Walker M6 PT-IP Treatment Start: 03/29/18 12:43 Freq: NEEDED Status: Active Protocol: Document 03/30/18 08:28 AMB (Rec: 03/30/18 08:28 AMB [email or web address]) Physical Therapy Treatment Other Treatments Other Treatment Performed Bed mobility and gait with walker, pt able to safely ambulate short distances with SBA and walker. M7 PT-IP Assessment and Plan Start: 03/29/18 12:43 Freq: NEEDED Status: Active Protocol: Document 03/30/18 08:23 AMB (Rec: 03/30/18 08:27 AMB [email or web address]) PT Summary Assessment and Plan Goals Bed Mobility Goal Independent Transfer Goal Independent Gait Goal Independent Front Wheel Walker Gait Distance 100 Other Goals Stairs: 4 with one railing Days to Meet Goals 2 Frequency of Treatment Frequency Of Treatment Twice a Day Treatment Plan Physical Therapy Treatment Plan Bed Mobility Training Gait Training Therapeutic Exercise Neuromuscular Re-ed Other Recommendations and Next Treatment Christina maneuver if tolerated. Otherwise progress safety of gait/stairs for safe d/c home. Focus Recommendations To Nursing Amount of Assist Needed Standby Assistance Discharge Recommendations PT Discharge Recommendations Home Other Discharge Recommendations Follow up with PCP will need vestibular outpatient therapy Equipment Needed for Home Before Will need walker from friends Discharge
--- NOTE | 2018-03-30 09:56 | PM.DS.1 ---
History of Present Illness Date Patient Seen: 03/30/18 Time Patient Seen: 08:56 Chief complaint: Dizziness/ Vertigo Narrative: Merle Chu is a 67-year-old female with history of type II diabetes, who presented to the ER yesterday for vertigo. She has been having intermittent vertigo for about 2 weeks. Initially she noticed her symptoms mostly in the morning when she tried to sit up from lying position. The vertigo resolves after she sits still for a few minutes. Her symptom has progressively gotten worse. Two nights ago, when she laid down to her bed, the entire room was spinning. The next morning when her friend came to pick her up to go to the [employer], she mentioned to her friend that she was having vertigo. She was subsequently brought to the [facility] Emergency Room. She received a full-dose aspirin.. Noncontrast head CT and CT angiogram did not reveal intracranial lesions that could be causing her vertigo. She was admitted to the medicine floor for observation. Patient continued to have vertigo, however she is able to ambulate independently. Her blood pressure was noticed to be elevated yesterday at the ER. She did receive labetalol IV as needed. Her blood pressure is currently in the normal range. Discharge Providers Date of admission: 03/28/18 19:29 Primary care physician: Kylie Watt DO Consults: 03/29/18 09:10 Consult to Physical Therapy Evaluate & Treat Comment: vertigo Physician Instructions: Evaluate and Treat Discharge provider: OTTO Chan Summary Discharge Diagnosis: 1. Acute vertigo, most likely benign positional vertigo 2. Type 2 diabetes; diet-controlled 3. Morbid obesity Hospital Course: This is a summary of the hospital course for 2 days stay for this patient with acute vertigo, most likely benign positional in nature. Chest x-ray, head CT, head/neck CTA were all normal. Patient was seen by Physical therapy to evaluate and treat using otolith repositioning maneuvers. PT feels it is safe for this will need to go home. Meclizine was administered p.o. as needed. Also having normal blood pressures prior to this admission she demonstrated the possible need for further evaluation for blood pressures ranging from 142-192/76-93. It is felt that these changes in her blood pressure pattern may be secondary to vertigo. Her type 2 diabetes is well controlled with diet. Fingerstick blood glucoses ranged from 84 to 120 without any need for sliding scale coverage. Patient has been encouraged to decrease caloric intake and increase exercise when opportunity arises to reduce weight. She will be followed up by her primary care provider who will need to establish outpatient physical therapy for her related to vestibular maneuvers, and follow up on her blood pressure to assess need for medication once her vertigo resolves. Status at Discharge Functional status at discharge: uses cane/walker Overall status at discharge: patient is not back to baseline Time Spent with Patient Greater than 30 minutes Exam Vital Signs (past 8 hours): Vital Signs - 8 hr 03/30/18 04:00 03/30/18 08:00 Temperature 97.5 F L 97.8 F Pulse Rate 63 58 L Respiratory Rate 16 17 Blood Pressure 136/63 H 155/82 H Pulse Oximetry 94 95 Pulse Oximetry 95 Oxygen Delivery Method Room Air Oxygen Flow Rate 0 Narrative Exam Narrative: GENERAL: Obese middle-aged woman in no acute distress. HEENT: Head normocephalic, atraumatic. Eyes pupils equal round at 2 mm. No nystagmus noted. NECK: Supple, no JVD, CHEST: Breath sounds equal bilaterally, no wheezes rales or rhonchi. CARDIAC: Regular rate and rhythm without murmurs, rubs or gallops. EKG telemetry reveals normal sinus rhythm with rare PVCs. ABDOMEN: Soft, nontender. Normoactive bowel sounds all 4 quadrants. No guarding or rebound. EXTREMITIES: Normal range of motion, no clubbing, trace to 1+ edema on bilateral ankles. NEUROLOGICAL: Alert and oriented; cranial nerves 3-12 were intact, Normal muscle strength on upper and lower extremities. SKIN: Warm, dry, no petechiae, no rashes or lesions. Objective Labs Result Diagrams: 03/28/18 14:10 03/28/18 14:10 Labs: Patient: Merle Chu MR#: [id number] : 1950 Acct:[id number] Age/Sex: 67 / F Date of Service: 03/28/18 Loc: ED Accession Number: [id number] Procedure: CT angio head and neck Ordering Provider: Charles Veloz D.O. PROCEDURE: CT ANGIO HEAD AND NECK INDICATIONS: persistent dizziness TECHNIQUE: Pre-contrast 4.5 mm thick sections acquired from the foramen magnum to the vertex. After the administration of intravenous contrast, 1 mm thick sections acquired from the aortic arch through the [place]. Post-contrast 4.5 mm thick sections then re-acquired from the foramen magnum to the vertex. 3-dimensional gjhtndd-jubxbbzwp-qppnlbdhpx (MIP) and/or volume rendering reformats were acquired of the central intracranial vasculature and neck separately. COMPARISON: [facility], CT, CT HEAD/BRAIN WO CON, 03/28/2018, 15:32. FINDINGS: Image quality: Excellent. BRAIN: CSF spaces: Ventricles are normal in size and shape. Basal cisterns are patent. No extra-axial fluid collections. Brain: No midline shift. No intracranial bleeds or masses. Cross-white matter interface appears intact. Skull and face: Calvarium and facial bones appear intact, without suspicious lesions. Orbits appear normal. Sinuses: Sinuses and mastoids are clear. HEAD CT ANGIOGRAPHY: Anterior circulation: Intracranial internal carotid arteries are normal in size and flow. The flow within the paired anterior cerebral arteries is normal and symmetric. The flow within the middle cerebral arteries is normal and symmetric. The anterior communicating artery is seen. No aneurysms are seen. Posterior circulation: Visualized portions of the vertebral arteries demonstrate normal caliber, and join to form a normal appearing basilar artery. Flow within the posterior cerebral arteries is normal and symmetric. No aneurysms are seen. NECK CT ANGIOGRAPHY: Carotid system: The great vessels demonstrate a conventional anatomy as they arise from the aortic arch. The origins of the common carotid arteries appear patent. The common carotid arteries demonstrate normal caliber and courses. The bifurcation regions are both widely patent. The internal carotid arteries demonstrate normal calibers and courses. Posterior circulation: The origins of the vertebral arteries both appear widely patent. The more superior extracranial portions of both vertebral arteries also demonstrate normal courses and calibers. They join to form a normal appearing basilar artery. Soft tissues: Visualized neck soft tissues demonstrate no suspicious abnormalities. Bones: No suspicious bony lesions. Visualized cervical spine appears normally aligned. IMPRESSION: Negative head CTA. Negative neck CTA. No ICA stenosis. Any quantitative measurements of stenosis were performed using NASCET criteria. Dictated by: Erick Costa M.D. on 03/28/2018 at 18:55 Approved by: Erick Costa M.D. on 03/28/2018 at 18:59 Patient: Merle Chu MR#: [id number] : 1950 Acct:[id number] Age/Sex: 67 / F Date of Service: 03/28/18 Loc: ED Accession Number: [id number] Procedure: CT head/brain wo con Ordering Provider: Charles Veloz D.O. PROCEDURE: CT HEAD/BRAIN WO CON INDICATIONS: dizziness, GARCIA TECHNIQUE: Noncontrast 4.5 mm thick angled axial sections acquired from the foramen magnum to the vertex, with coronal and sagittal reformats. For radiation dose reduction, the following was used: automated exposure control, adjustment of mA and/or kV according to patient size. COMPARISON: None. FINDINGS: Image quality: Excellent. CSF spaces: Basal cisterns are patent. No extra-axial fluid collections. The ventricles are symmetric in size and shape. Brain: No intracranial bleeds or masses. There is cerebral volume loss for age, with resultant ventricular and sulcal prominence. There are periventricular and deep white matter chronic small vessel ischemic changes. There is intracranial internal carotid artery atherosclerosis. Skull and face: Calvarium and visualized facial bones appear intact, without suspicious lesions. There is hyperostosis frontalis. Sinuses: Visualized sinuses and mastoids are clear. IMPRESSION: No acute intracranial process Dictated by: Erick Costa M.D. on 03/28/2018 at 15:58 Approved by: Erick Costa M.D. on 03/28/2018 at 16:01 Discharge Plan Discharge Plan Patient Disposition: Home Health Service Discharge comment: Patient will need follow-up with PCP regarding vestibular outpatient therapy. Provider Discharge Instructions Diet: Carb-consistent/Diabetic Activity: Patient will need a walker at home. Limit rapid movement of head and neck. Patient should avoid lying on her right side, she should keep her head of the bed elevated 30 degrees and no tilting of her head and neck or back bends forward at the waist. Oxygen: Room air Discharge Data Primary Care Provider: Kylie Watt Attending Provider: Brian Ruvalcaba Admit Date/Time: 03/28/18 19:29 Quality VTE Deep Vein Thrombosis/Pulmonary Embolism Present on Admission: No
--- NOTE | 2018-03-30 10:06 | P.DS_ITS ---
History of Present Illness Date Patient Seen: 03/30/18 Time Patient Seen: 08:56 Chief complaint: Dizziness/ Vertigo Narrative: Merle Chu is a 67-year-old female with history of type II diabetes, who presented to the ER yesterday for vertigo. She has been having intermittent vertigo for about 2 weeks. Initially she noticed her symptoms mostly in the morning when she tried to sit up from lying position. The vertigo resolves after she sits still for a few minutes. Her symptom has progressively gotten worse. Two nights ago, when she laid down to her bed, the entire room was spinning. The next morning when her friend came to pick her up to go to the [employer], she mentioned to her friend that she was having vertigo. She was subsequently brought to the [facility] Emergency Room. She received a full-dose aspirin.. Noncontrast head CT and CT angiogram did not reveal intracranial lesions that could be causing her vertigo. She was admitted to the medicine floor for observation. Patient continued to have vertigo, however she is able to ambulate independently. Her blood pressure was noticed to be elevated yesterday at the ER. She did receive labetalol IV as needed. Her blood pressure is currently in the normal range. Discharge Providers Date of admission: 03/28/18 19:29 Primary care physician: Kylie Watt DO Consults: 03/29/18 09:10 Consult to Physical Therapy Evaluate & Treat Comment: vertigo Physician Instructions: Evaluate and Treat Discharge provider: OTTO Chan Summary Discharge Diagnosis: 1. Acute vertigo, most likely benign positional vertigo 2. Type 2 diabetes; diet-controlled 3. Morbid obesity Hospital Course: This is a summary of the hospital course for 2 days stay for this patient with acute vertigo, most likely benign positional in nature. Chest x-ray, head CT, head/neck CTA were all normal. Patient was seen by Physical therapy to evaluate and treat using otolith repositioning maneuvers. PT feels it is safe for this will need to go home. Meclizine was administered p.o. as needed. Also having normal blood pressures prior to this admission she demonstrated the possible need for further evaluation for blood pressures ranging from 142-192/76-93. It is felt that these changes in her blood pressure pattern may be secondary to vertigo. Her type 2 diabetes is well controlled with diet. Fingerstick blood glucoses ranged from 84 to 120 without any need for sliding scale coverage. Patient has been encouraged to decrease caloric intake and increase exercise when opportunity arises to reduce weight. She will be followed up by her primary care provider who will need to establish outpatient physical therapy for her related to vestibular maneuvers, and follow up on her blood pressure to assess need for medication once her vertigo resolves. Status at Discharge Functional status at discharge: uses cane/walker Overall status at discharge: patient is not back to baseline Time Spent with Patient Greater than 30 minutes Exam Vital Signs (past 8 hours): Vital Signs - 8 hr 3 03/30/18 04:00 03/30/18 08:00 Temperature 97.5 F L 97.8 F Pulse Rate 63 58 L Respiratory Rate 16 17 Blood Pressure 136/63 H 155/82 H Pulse Oximetry 94 95 Pulse Oximetry 95 Oxygen Delivery Method Room Air Oxygen Flow Rate 0 Narrative Exam Narrative: GENERAL: Obese middle-aged woman in no acute distress. HEENT: Head normocephalic, atraumatic. Eyes pupils equal round at 2 mm. No nystagmus noted. NECK: Supple, no JVD, CHEST: Breath sounds equal bilaterally, no wheezes rales or rhonchi. CARDIAC: Regular rate and rhythm without murmurs, rubs or gallops. EKG telemetry reveals normal sinus rhythm with rare PVCs. ABDOMEN: Soft, nontender. Normoactive bowel sounds all 4 quadrants. No guarding or rebound. EXTREMITIES: Normal range of motion, no clubbing, trace to 1+ edema on bilateral ankles. NEUROLOGICAL: Alert and oriented; cranial nerves 3-12 were intact, Normal muscle strength on upper and lower extremities. SKIN: Warm, dry, no petechiae, no rashes or lesions. Objective Labs Result Diagrams: 03/28/18 14:10 03/28/18 14:10 Labs: Patient: Merle Chu MR#: [id number] : 1950 Acct:[id number] Age/Sex: 67 / F Date of Service: 03/28/18 Loc: ED Accession Number: [id number] Procedure: CT angio head and neck Ordering Provider: Charles Veloz D.O. PROCEDURE: CT ANGIO HEAD AND NECK INDICATIONS: persistent dizziness TECHNIQUE: Pre-contrast 4.5 mm thick sections acquired from the foramen magnum to the vertex. After the administration of intravenous contrast, 1 mm thick sections acquired from the aortic arch through the [place] of [place]. Post-contrast 4.5 mm thick sections then re- acquired from the foramen magnum to the vertex. 3-dimensional maximum-intensity- projection (MIP) and/or volume rendering reformats were acquired of the central intracranial vasculature and neck separately. COMPARISON: [facility], CT, CT HEAD/BRAIN WO CON, 03/28/2018, 15:32. FINDINGS: Image quality: Excellent. BRAIN: CSF spaces: Ventricles are normal in size and shape. Basal cisterns are patent. No extra-axial fluid collections. Brain: No midline shift. No intracranial bleeds or masses. Cross-white matter interface appears intact. Skull and face: Calvarium and facial bones appear intact, without suspicious lesions. Orbits appear normal. Sinuses: Sinuses and mastoids are clear. HEAD CT ANGIOGRAPHY: Anterior circulation: Intracranial internal carotid arteries are normal in size and flow. The flow within the paired anterior cerebral arteries is normal and symmetric. The flow within the middle cerebral arteries is normal and symmetric. The anterior communicating artery is seen. No aneurysms are seen. Posterior circulation: Visualized portions of the vertebral arteries demonstrate normal caliber, and join to form a normal appearing basilar artery. Flow within the posterior cerebral arteries is normal and symmetric. No aneurysms are seen. NECK CT ANGIOGRAPHY: Carotid system: The great vessels demonstrate a conventional anatomy as they arise from the aortic arch. The origins of the common carotid arteries appear patent. The common carotid arteries demonstrate normal caliber and courses. The bifurcation regions are both widely patent. The internal carotid arteries demonstrate normal calibers and courses. Posterior circulation: The origins of the vertebral arteries both appear widely patent. The more superior extracranial portions of both vertebral arteries also demonstrate normal courses and calibers. They join to form a normal appearing basilar artery. Soft tissues: Visualized neck soft tissues demonstrate no suspicious abnormalities. Bones: No suspicious bony lesions. Visualized cervical spine appears normally aligned. IMPRESSION: Negative head CTA. Negative neck CTA. No ICA stenosis. Any quantitative measurements of stenosis were performed using NASCET criteria. Dictated by: rEick Costa M.D. on 03/28/2018 at 18:55 Approved by: Erick Costa M.D. on 03/28/2018 at 18:59 Patient: Merle Chu MR#: [id number] : 1950 Acct:[id number] Age/Sex: 67 / F Date of Service: 03/28/18 Loc: ED Accession Number: [id number] Procedure: CT head/brain wo con Ordering Provider: Charles Veloz D.O. PROCEDURE: CT HEAD/BRAIN WO CON INDICATIONS: dizziness, GARCIA TECHNIQUE: Noncontrast 4.5 mm thick angled axial sections acquired from the foramen magnum to the vertex, with coronal and sagittal reformats. For radiation dose reduction, the following was used: automated exposure control, adjustment of mA and/or kV according to patient size. COMPARISON: None. FINDINGS: Image quality: Excellent. CSF spaces: Basal cisterns are patent. No extra-axial fluid collections. The ventricles are symmetric in size and shape. Brain: No intracranial bleeds or masses. There is cerebral volume loss for age , with resultant ventricular and sulcal prominence. There are periventricular and deep white matter chronic small vessel ischemic changes. There is intracranial internal carotid artery atherosclerosis. Skull and face: Calvarium and visualized facial bones appear intact, without suspicious lesions. There is hyperostosis frontalis. Sinuses: Visualized sinuses and mastoids are clear. IMPRESSION: No acute intracranial process Dictated by: Erick Costa M.D. on 03/28/2018 at 15:58 Approved by: Erick Costa M.D. on 03/28/2018 at 16:01 Discharge Plan Discharge Plan Patient Disposition: Home Health Service Discharge comment: Patient will need follow-up with PCP regarding vestibular outpatient therapy. Provider Discharge Instructions Diet: Carb-consistent/Diabetic Activity: Patient will need a walker at home. Limit rapid movement of head and neck. Patient should avoid lying on her right side, she should keep her head of the bed elevated 30 degrees and no tilting of her head and neck or back bends forward at the waist. Oxygen: Room air Discharge Data Primary Care Provider: Kylie Watt Attending Provider: Brian Ruvalcaba Admit Date/Time: 03/28/18 19:29 Quality VTE Deep Vein Thrombosis/Pulmonary Embolism Present on Admission: No
[2018-03-30] MEDS: SODIUM CHLORIDE 0.9% FLUSH 10 ML IV (11:46)
[2018-03-30 12:00] VITALS: BP 126/61; PULSE 63; RESP 16; TEMP 36.8; O2SAT 95
--- NOTE | 2018-03-30 16:16 | CM.DPNOTE ---
Patient to discharge home with HH/PT for exercises specialized for vertigo. Called [facility]: they have a PT and [employer] team that specialize needed field. F2F completed. Referral faxed. Plan: Patient to discharge home with [facility].
== END 2018-03-30 14:10 | disposition home health service (06) ==
LOC: ED 19:25 → AC 19:31
PROVIDERS: Admitting Provider Internal Medicine; Emergency Provider Emergency Medicine; Family Provider Family Medicine; PCP Family Medicine; Visit Provider Internal Medicine
DX: I49.9 Cardiac arrhythmia, unspecified (principal); R42 Dizziness and giddiness; I10 Essential (primary) hypertension; E11.9 Type 2 diabetes mellitus without complications; E66.9 Obesity, unspecified; Z68.42 Body mass index [BMI] 45.0-49.9, adult
CPT/HCPCS: 36415; 36591; 70450; 70496; 70498; 71045; 80053; 82550; 82553; 82962; 83690; 84484; 85025; 85610; 85730; 93005; 96361; 96374; 97116; 97162; 99284; 99285; G0378

== ENCOUNTER 2019-01-12 21:52 | Emergency (ER) | payer MEDICARE, OTHER, SELFPAY ==
[2018-03-28 19:57] VITALS: BMI 64.0
[2019-01-12 21:59] VITALS: BMI 54.1
[2019-01-12 22:11] VITALS: BP 157/104; PULSE 84; RESP 20; TEMP 36.6; O2SAT 94
--- NOTE | 2019-01-12 22:24 | DI.RAD.S_ITS ---
PROCEDURE: XR CHEST 1V INDICATIONS: chest pain TECHNIQUE: One view of the chest was acquired. COMPARISON: , CR, XR CHEST 1V, 03/28/2018, 13:50. FINDINGS: Surgical changes and devices: None. Lungs and pleura: Lungs are clear. No pleural effusions or pneumothorax. Mediastinum: Mediastinal contours appear normal. Heart size is normal. Bones and chest wall: No suspicious bony lesions. Overlying soft tissues appear unremarkable. IMPRESSION: No acute cardiopulmonary disease. Dictated by: Shelli Rao M.D. on 01/13/2019 at 8:10 Approved by: Shelli Rao M.D. on 01/13/2019 at 8:10
[2019-01-12 22:30] VITALS: BP 152/90; PULSE 71; RESP 20; O2SAT 94
[2019-01-12 22:34] LABS: Prothrombin Time 11.7 SECONDS (10.1-12.7)
[2019-01-12 22:36] LABS: PTT Partial Thromboplastin Tim 31 SECONDS (26.4-36.2)
[2019-01-12 22:38] LABS: Add Manual Diff / Slide Review NO; Alanine Aminotransferase 23 IU/L (9-52); Albumin 4.2 g/dL (3.5-5.0); Alkaline Phosphatase 92 U/L (38-126); Aspartate Aminotransferase 27 IU/L (14-36); BUN Creatinine Ratio 21.7 (6-22); Basophils Absolute Auto 100 /uL (0-100); Bilirubin Total 0.6 mg/dL (0.2-1.3); Blood Urea Nitrogen 13 mg/dL (7-17); Carbon Dioxide 28 mmol/L (22-32); Chloride 102 mmol/L (98-107); Creatine Kinase 67 U/L (30-135); Eosinophils Absolute Auto 100 /uL (0-450); Eosinophils Percent Auto 1.5 % (2-4); Estimated Glomerular Filt Rate > 60.0 mL/min (>60); Globulin 4.2 g/dL (1.7-4.1); Glucose 133 mg/dL (80-110); HEMOLYSIS < 15 (0-50); Hematocrit 44.8 % (36-46); Hemoglobin 15.3 g/dL (12.0-16.0); Lipase 182 U/L (23-300); Lymphocytes Absolute Auto 1800 /uL (1100-4500); Mean Corpuscular HGB Conc 34.1 % (30-36); Mean Corpuscular Hemoglobin 30.1 PG (26-34); Mean Corpuscular Volume 88.4 fL (80-100); Monocytes Absolute Auto 400 /uL (0-900); Neutrophils Absolute Auto 3400 /uL (1500-7000); Neutrophils Percent Auto 59.5 % (50-75); Platelet Count 243 X10^3/uL (150-400); Potassium 3.7 mmol/L (3.4-5.1); Red Blood Cell Count 5.07 X10^6/uL (4.0-5.2); Red Cell Distribution Width 13.7 % (11.6-14.8); Sodium 138 mmol/L (137-145); Total Protein 8.4 g/dL (6.3-8.2); White Blood Cell Count 5.7 X10^3/uL (4.5-11.0)
--- NOTE | 2019-01-12 22:45 | ED.CHESTPAIN ---
HPI - Chest Pain General Chief Complaint: Chest Pain Stated Complaint: SHORT OF BREATH, LT ARM PAIN Time Seen by Provider: 01/12/19 22:32 Source: patient Mode of arrival: ambulatory Limitations: no limitations History of Present Illness HPI narrative: Patient is a 68-year-old female here for evaluation of left-sided chest pain. She also states that she has a slight shortness of breath and tingling in her left arm. She states that it started sometime earlier in the day. She said that she took a nap and then woke up at 2 in the afternoon. She states she has had the symptoms consistently since 2 in the afternoon. Has never had any heart issues in the past. Has not taken anything for the symptoms prior to arrival. Related Data Previous Rx's Medication Instructions Recorded meclizine 25 mg PO Q6HR PRN #120 tab 03/30/18 Allergies Allergy/AdvReac Type Severity Reaction Status Date / Time adhesive [ADHESIVE] Allergy Severe RASH Verified 03/18/18 07:59 PAPER/SILK TAPE OK aspartame [ASPARTAME] Allergy Severe COMA Verified 03/18/18 08:38 iodine [IODINE] Allergy Severe SOB, RASH Verified 03/18/18 07:59 latex [LATEX] Allergy Severe RASH Verified 03/18/18 07:59 Sulfa (Sulfonamide Allergy Severe RASH Verified 03/18/18 07:59 Antibiotics) [SULFA (SULFONAMIDE ANTIBIOTICS)] codeine [CODEINE] AdvReac Severe PROJECTILE Verified 03/18/18 07:59 VOMITING hydrocodone [HYDROCODONE] AdvReac Severe PROJECTILE Verified 03/18/18 07:59 VOMITING oxycodone [From OXYCONTIN] AdvReac Severe PROJECTILE Verified 03/18/18 07:59 VOMITING Review of Systems Constitutional Denies fever(s) Cardiovascular Reports chest pain, Denies rapid heart rate, Denies edema, Denies palpitations and Reports dyspnea Respiratory Reports dyspnea Gastrointestinal Gastrointestinal: Denies abdominal pain, Denies nausea and Denies vomiting Genitourinary Denies dysuria Musculoskeletal Denies myalgias and Denies arthralgias Integumentary/Breasts Denies rash Endocrine Denies palpitations Hematologic/Lymphatic Denies easy bleeding and Denies easy bruising Allergic/Immunologic Denies urticaria [facility] Medical History Diabetes (Acute) Social History household members: none Smoking Status: Never smoker alcohol intake: never Social History household members: none Smoking Status: Never smoker alcohol intake: never Exam Initial Vital Signs Initial Vital Signs: Vital Signs Temperature 97.9 F 01/12/19 22:11 Pulse Rate 84 01/12/19 22:11 Respiratory Rate 20 01/12/19 22:11 Blood Pressure 157/104 H 01/12/19 22:11 Pulse Oximetry 94 01/12/19 22:11 Const General: cooperative, healthy appearing, comfortable, well developed, well groomed and No acute distress Orientation: alert, awake and oriented x3 HENMT Head: normal to inspection and normocephalic Resp Effort & Inspection: normal respiratory effort Auscultation: clear to auscultation bilaterally Cardio Rate: regular rate Rhythm: regular rhythm Pulses: radial pulses present GI Inspection: non-distended Palpation: soft Skin Lesions: no lesions Rashes: no rashes Neuro General: alert, awake and oriented x3 Cognition: normal cognition Speech: speech normal Gait: normal gait Extrem General: normal to inspection and capillary refill normal Psych Appearance: grossly normal and well kempt Course Orders Ordered: ED Orders 01/12/19 22:08 Complete Blood Count AUTO DIFF Stat Comprehensive Metabolic Panel Stat Lipase Stat Partial Thromboplastin Time Stat Prothrombin Time INR Stat Troponin & CK Cardiac Panel Stat 01/12/19 22:24 XR chest 1V Stat 01/13/19 01:07 Troponin I Stat Discontinued Medications Acetaminophen (Tylenol) 650 mg PO NOW ONE Stop: 01/12/19 23:27 Last Admin: 01/12/19 23:28 Dose: 650 mg Vital Signs - 8 hr 01/12/19 22:11 01/12/19 22:30 01/12/19 23:00 Temperature 97.9 F Pulse Rate 84 71 61 Respiratory Rate 20 20 17 Blood Pressure [Left Arm] 157/104 H 152/90 H 155/92 H Pulse Oximetry 94 94 94 01/12/19 23:36 01/13/19 00:00 01/13/19 00:30 Temperature Pulse Rate 64 81 68 Respiratory Rate 19 17 17 Blood Pressure [Left Arm] 140/89 129/81 131/73 Pulse Oximetry 92 93 94 01/13/19 01:00 01/13/19 01:30 01/13/19 02:00 Temperature Pulse Rate 68 70 72 Respiratory Rate 16 17 15 Blood Pressure [Left Arm] 146/73 H 135/80 149/74 H Pulse Oximetry 93 92 92 MDM - Chest Pain Lab Data Attestation: I reviewed the patient's lab results. Result diagrams: 01/12/19 22:08 01/12/19 22:08 Lab Results 01/12/19 01/12/19 01/12/19 Range/Units 22:08 22:08 22:08 WBC 5.7 (4.5-11.0) X10^3/uL RBC 5.07 (4.0-5.2) X10^6/uL Hgb 15.3 (12.0-16.0) g/dL Hct 44.8 (36-46) % MCV 88.4 (80-100) fL MCH 30.1 (26-34) PG MCHC 34.1 (30-36) % RDW 13.7 (11.6-14.8) % Plt Count 243 (150-400) X10^3/uL Neut % (Auto) 59.5 (50-75) % Lymph % (Auto) 31.0 (25-40) % Emmet % (Auto) 7.0 (3-14) % Eos % (Auto) 1.5 L (2-4) % Baso % (Auto) 1.0 (0-2) % Neut # (Auto) 3400 (8022-2766) /uL Lymph # (Auto) 1800 (3333-3686) /uL Emmet # (Auto) 400 (0-900) /uL Eos # (Auto) 100 (0-450) /uL Baso # (Auto) 100 (0-100) /uL PT 11.7 (10.1-12.7) SECONDS INR 1.0 (0.9-1.3) APTT 31 (26.4-36.2) SECONDS Sodium 138 (137-145) mmol/L Potassium 3.7 (3.4-5.1) mmol/L Chloride 102 (98-107) mmol/L Carbon Dioxide 28 (22-32) mmol/L BUN 13 (7-17) mg/dL Creatinine 0.60 (0.52-1.04) mg/dL Estimated GFR > 60.0 (>60) mL/min BUN/Creatinine Ratio 21.7 (6-22) Glucose 133 H (80-110) mg/dL Calcium 9.0 (8.4-10.2) mg/dL Total Bilirubin 0.6 (0.2-1.3) mg/dL AST 27 (14-36) IU/L ALT 23 (9-52) IU/L Alkaline Phosphatase 92 (38-126) U/L Total Creatine Kinase 67 (30-135) U/L CK-MB (CK-2) TNP CK-MB (CK-2) Rel Index TNP Troponin I < 0.012 (0.01-0.034) ng/mL Total Protein 8.4 H (6.3-8.2) g/dL Albumin 4.2 (3.5-5.0) g/dL Globulin 4.2 H (1.7-4.1) g/dL Albumin/Globulin Ratio 1.0 (1.0-2.8) Lipase 182 (23-300) U/L 01/13/19 Range/Units 01:07 WBC (4.5-11.0) X10^3/uL RBC (4.0-5.2) X10^6/uL Hgb (12.0-16.0) g/dL Hct (36-46) % MCV (80-100) fL MCH (26-34) PG MCHC (30-36) % RDW (11.6-14.8) % Plt Count (150-400) X10^3/uL Neut % (Auto) (50-75) % Lymph % (Auto) (25-40) % Emmet % (Auto) (3-14) % Eos % (Auto) (2-4) % Baso % (Auto) (0-2) % Neut # (Auto) (2159-2759) /uL Lymph # (Auto) (1225-3551) /uL Emmet # (Auto) (0-900) /uL Eos # (Auto) (0-450) /uL Baso # (Auto) (0-100) /uL PT (10.1-12.7) SECONDS INR (0.9-1.3) APTT (26.4-36.2) SECONDS Sodium (137-145) mmol/L Potassium (3.4-5.1) mmol/L Chloride (98-107) mmol/L Carbon Dioxide (22-32) mmol/L BUN (7-17) mg/dL Creatinine (0.52-1.04) mg/dL Estimated GFR (>60) mL/min BUN/Creatinine Ratio (6-22) Glucose (80-110) mg/dL Calcium (8.4-10.2) mg/dL Total Bilirubin (0.2-1.3) mg/dL AST (14-36) IU/L ALT (9-52) IU/L Alkaline Phosphatase (38-126) U/L Total Creatine Kinase (30-135) U/L CK-MB (CK-2) CK-MB (CK-2) Rel Index Troponin I < 0.012 (0.01-0.034) ng/mL Total Protein (6.3-8.2) g/dL Albumin (3.5-5.0) g/dL Globulin (1.7-4.1) g/dL Albumin/Globulin Ratio (1.0-2.8) Lipase (23-300) U/L Imaging Data Chest x-ray: Attestation: I personally reviewed and interpreted this imaging study as follows: My impression: Low lung volumes, no pneumothorax, no acute pathology, no pneumonia ECG Data Attestation: I personally reviewed and interpreted this ECG as follows: Prior ECG tracings: not available for review Interpretation: Sinus rhythm LVH Left axis deviation Ventricular rate is 78 Normal QRS Normal QTC No ST T wave changes MDM Narrative Medical decision making narrative: Patient looks well. Has had the symptoms consistently for more than 6 hr. Her initial troponin was negative. A repeat troponin was negative. Both of these were greater than 6 hr after the onset of the symptoms. Her EKG was unremarkable. She has talked with her primary doctor in the past. She has a referral in to have a stress test performed however this has not been scheduled as of this point. Given the fact that her symptoms have been going on for this long and her unremarkable EKG and her 2-troponins both 6 hr after the onset of her symptoms I feel that ACS is unlikely. The patient was able to ambulate around the department without any problems. Informed her that she needed to schedule the stress test. We discussed return precautions. She expressed understanding and agreement with plan. Discharge Plan Departure Patient Disposition: Home Clinical Impression: Atypical chest pain Discharge Date/Time: 01/13/19 02:30 Interventions: ED Discharge Assessment Last Done: 01/13/19 02:30 Instructions: DI for Atypical Chest Pain Activity Restrictions/Additional Instructions: Continue all of her medications as directed. Make sure that you keep your appointment for your stress test. Return to the emergency department for any new or worsening symptoms. Prescriptions: No Action meclizine 12.5 mg Tablet 25 mg PO Q6HR PRN (Reason: Vertigo) Qty: 120 RF: 0 Referrals: Kylie Watt DO [Primary Care Provider] -
[2019-01-12 22:49] LABS: Troponin I < 0.012 ng/mL (0.01-0.034)
[2019-01-12 23:00] VITALS: BP 155/92; PULSE 61; RESP 17; O2SAT 94
[2019-01-12] MEDS: ACETAMINOPHEN 325 MG TABLET 650 MG PO (23:28)
[2019-01-12 23:36] VITALS: BP 140/89; PULSE 64; RESP 19; O2SAT 92
[2019-01-13] VITALS: BP 129/81; PULSE 81; RESP 17; O2SAT 93
[2019-01-13 00:30] VITALS: BP 131/73; PULSE 68; RESP 17; O2SAT 94
[2019-01-13 01:00] VITALS: BP 146/73; PULSE 68; RESP 16; O2SAT 93
[2019-01-13 01:30] VITALS: BP 135/80; PULSE 70; RESP 17; O2SAT 92
[2019-01-13 01:38] LABS: Troponin I < 0.012 ng/mL (0.01-0.034)
[2019-01-13 02:00] VITALS: BP 149/74; PULSE 72; RESP 15; O2SAT 92
== END 2019-01-13 02:30 | disposition home or self-care (01) ==
PROVIDERS: Emergency Provider Emergency Medicine; Family Provider Family Medicine; PCP Family Medicine
DX: R07.89 Other chest pain (principal); R06.02 Shortness of breath; M79.602 Pain in left arm
CPT/HCPCS: 36415; 36591; 71045; 80053; 82550; 83690; 84484; 85025; 85610; 85730; 93005; 99284; 99285

== ENCOUNTER → 2019-04-29 12:48 | Outpatient (CLI) | payer MEDICARE, OTHER, SELFPAY ==
[2018-03-28 19:57] VITALS: BMI 64.0
--- NOTE | 2019-04-29 | DI.ECHO.S_ITS ---
[facility] +---------+ : : [address] [address] : : : : [id number] : : : : Phone: [phone] Echocardiogram Report + + :Name: ANITA KHALIL Study Date: 04/29/2019 Height: 57 in : :[facility] Exam Location: IS Weight: 245 lb : : Gender: Female BSA: 2.0 m2 : :: 1950 Age: 68 yrs BP: 132/84 mmHg: :Reason For Study: PALPITATIONS : : Performed By: Max Muir : :Referring: SAMANTHA FREEDMAN A : + + Interpretation Summary The left ventricle is normal in size. Left ventricular systolic function is normal without focal wall motion abnormalities. The ejection fraction is estimated to be 65-70%. Diastolic parameters suggest a relaxation abnormality of the left ventricle, consistent with probable normal filling pressures. The right ventricle is normal in size and function. Pulmonary artery pressures cannot be estimated because of the lack of a measurable TR jet velocity. Both atria are normal in size. There is no significant valvular heart disease. The aortic root is normal size. Procedure: A two-dimensional transthoracic echocardiogram with color flow and Doppler was performed. The study quality was technically good. There is no prior echocardiogram noted for this patient. The patient was in normal sinus rhythm during the exam. The patient had occasional PVCs during the exam. Left Ventricle: The left ventricle is normal in size. There is normal left ventricular wall thickness. Left ventricular systolic function is normal without focal wall motion abnormalities. The ejection fraction is estimated to be 65-70%. Diastolic parameters suggest a relaxation abnormality of the left ventricle, consistent with probable normal filling pressures. Right Ventricle: The right ventricle is normal in size and function. Atria: Both atria are normal in size. The interatrial septum is intact with no evidence for an atrial septal defect. Mitral Valve: The mitral valve is normal in structure and function. There is no mitral regurgitation noted. Aortic Valve: The aortic valve is trileaflet. The aortic valve is slightly calcified. The aortic valve opens well. No aortic regurgitation is present. Tricuspid Valve: The tricuspid valve is normal in structure and function. No tricuspid regurgitation. Pulmonary artery pressures cannot be estimated because of the lack of a measurable TR jet velocity. Pulmonic Valve: The pulmonic valve is normal in structure and function. There is no pulmonic valvular regurgitation. There is no significant valvular heart disease. Great Vessels: The aortic root is normal size. The ascending aorta is at the upper limits of normal in size. The pulmonary artery is normal size. The IVC is of normal diameter and collapses greater than 50% with a sniff. This suggests a low right atrial pressure of 3 mm Hg. Pericardium/ Pleura There is no pericardial effusion. There is no pleural effusion. MMode/2D Measurements & Calculations LVIDd: 4.5 cm LVOT diam: 2.1 cm LVIDs: 2.5 cm Ao root diam: 3.0 cm FS: 44.6 % Aortic Jxn: 2.6 cm EPSS: 0.33 cm asc Aorta Diam: 3.5 cm IVSd: 0.88 cm Ao Arch Diam (Prox Trans): 2.4 cm LVPWd: 0.97 cm LV giles. diameter/BSA (cm/m^2): 2.3 LV sys. diameter/BSA (cm/m^2): 1.3 LA dimension: 3.1 cm RA long axis: 5.0 cm LA A2 area: 16.0 cm2 RA area: 12.3 cm2 LA A4 area: 12.8 cm2 RA vol: 25.7 ml LA length (vol): 4.5 cm RA : 13.1 ml/m2 LA vol: 38.9 ml IVC diam: 1.7 cm LA vol index: 19.8 ml/m2 Doppler Measurements & Calculations Ao V2 max: 158.2 cm/sec LVOT Max Kevin: 97.4 cm/sec Ao V2 mean: 114.6 cm/sec LV V1 max P.8 mmHg Ao max P.0 mmHg LV V1 VTI: 20.9 cm Ao mean P.6 mmHg LUCIA(I,D): 2.2 cm2 Ao V2 VTI: 31.3 cm LUCIA(V,D): 2.0 cm2 sev ratio: 0.67 LUCIA indexed to BSA (cm^2/m^2): 1.1 MV E max kevin: 89.4 cm/sec PA V2 max: 105.6 cm/sec MV A max kevin: 99.0 cm/sec PA V2 mean: 73.8 cm/sec MV E/A: 0.90 PA mean P.4 mmHg Med Peak E' Kevin: 5.1 cm/sec PA pr(Accel): 52.4 mmHg E/E' med: 17.7 PA Accel Time: 0.07 sec Lat Peak E' Kevin: 4.5 cm/sec E/E' lat: 19.7 E/e' average: 18.7 MV dec time: 0.21 sec SV(LVOT): 69.1 ml Reading Physician:06:17 PM
== END ==
PROVIDERS: PCP Family Medicine; Visit Provider Family Medicine
DX: R00.2 Palpitations (principal)
CPT/HCPCS: 93306

== ENCOUNTER 2021-06-19 11:58 | Emergency (ER) | payer MEDICARE, OTHER, SELFPAY ==
[2018-03-28 19:57] VITALS: BMI 64.0
--- NOTE | 2021-06-19 12:05 | DI.RAD.S_ITS ---
PROCEDURE: XR SHOULDER LT MIN 2V INDICATIONS: L shoulder pain/injury TECHNIQUE: 3 views of the shoulder were acquired. COMPARISON: [facility], [place], XR CHEST 1V, 01/12/2019, 22:39. FINDINGS: Bones: Comminuted left humeral head and neck fracture with impaction. No suspicious bony lesions. Possible intra-articular body medial and inferior to the coracoid process. Visualized ribs appear intact. Soft tissues: No suspicious soft tissue calcifications. IMPRESSION: Comminuted humeral head and neck fracture with impaction. Dictated by: Shelli Rao M.D. on 06/19/2021 at 12:50 Approved by: Shelli Rao M.D. on 06/19/2021 at 12:53
[2021-06-19 12:46] VITALS: BP 201/100; PULSE 78; RESP 16; TEMP 36.4; O2SAT 96; BMI 45.4
--- NOTE | 2021-06-19 12:57 | ED_ITS ---
HPI - Extremity Injury (Upper) <Raquel Huntley PA-C - Last Filed: 06/19/21 21:40> General Chief Complaint: Extremity Injury, Upper Stated Complaint: fell and hurt left shoulder/lot of pain Time Seen by Provider: 06/19/21 12:05 Source: patient Mode of arrival: Ambulatory Limitations: no limitations History of Present Illness HPI narrative: 71-year-old [id number] female PMH osteoarthritis, rheumatoid arthritis, diabetes mellitus who presents to the clinic complaining of ground level fall with subsequent left shoulder pain. States that she tripped over small uneven surface on the ground and fell directly onto her left elbow. Reported immediate left shoulder pain. Denies LOC, head trauma, neck pain, back pain, numbness, tingling, laceration, or additional injury. Related Data Previous Rx's Medication Instructions Recorded meclizine 12.5 mg tablet 25 mg PO Q6HR PRN #120 tab 03/30/18 acetaminophen 300 mg-codeine 30 mg 1 tab PO Q6H PRN #14 tab 06/19/21 tablet ondansetron HCl 4 mg tablet 4 mg PO Q6H PRN #14 tab 06/19/21 (Zofran) Allergies Allergy/AdvReac Type Severity Reaction Status Date / Time adhesive [ADHESIVE] Allergy Severe RASH Verified 03/18/18 07:59 PAPER/SILK TAPE OK aspartame [ASPARTAME] Allergy Severe COMA Verified 03/18/18 08:38 iodine [IODINE] Allergy Severe SOB, RASH Verified 03/18/18 07:59 latex [LATEX] Allergy Severe RASH Verified 03/18/18 07:59 Sulfa (Sulfonamide Allergy Severe RASH Verified 03/18/18 07:59 Antibiotics) [SULFA (SULFONAMIDE ANTIBIOTICS)] codeine [CODEINE] AdvReac Severe PROJECTILE Verified 03/18/18 07:59 VOMITING hydrocodone [HYDROCODONE] AdvReac Severe PROJECTILE Verified 03/18/18 07:59 VOMITING oxycodone [From OXYCONTIN] AdvReac Severe PROJECTILE Verified 03/18/18 07:59 VOMITING Review of Systems <Raquel Huntley PA-C - Last Filed: 06/19/21 21:40> Review of Systems Narrative: General: denies fever, chills Head/Neck: denies head trauma, neck pain Eyes: Denies eye pain, vision change ENT: Denies epistaxis, mouth pain Cardio: denies chest pain, palpitations Respiratory: denies shortness of breath, cough GI: denies abdominal pain, vomiting : denies flank pain, hematuria MSK: Reports joint pain, denies back pain, muscle weakness Skin: Denies rash, laceration Neuro: denies LOC, numbness, weakness, loss of sensory/motor function Patient History <Raquel Huntley PA-C - Last Filed: 06/19/21 21:40> Medical History Diabetes Social History household members: none Smoking Status: Never smoker alcohol intake: never Smoking Status: Never smoker alcohol intake frequency: holidays/special occasions only Substance Use Type: does not use Exam <Raquel Huntley PA-C - Last Filed: 06/19/21 21:40> Narrative Exam Narrative: Independently reviewed vitals signs and nursing notes. General: Awake, alert, nontoxic, no cardiorespiratory distress Head/Neck: Atraumatic, neck full range of motion Eyes: EOMI, conjunctiva normal Nose: nares patent, no rhinorrhea Cardio: Regular rate and rhythm, no peripheral edema Respiratory: respirations unlabored without wheezing, stridor, or rales. No retractions. GI: Abdomen soft, nontender MSK: Neurovascular intact to the median/ulnar/radial nerve distributions. Range of motion limited secondary to pain of the left elbow and left shoulder. Tenderness over the proximal humerus. Tender along the olecranon region of the left elbow. No external signs of trauma or deformity noted. Moves all extremities, neurovascularly intact Skin: Normal capillary refill, no rash Neuro: Normal speech and cognition, normal gait Initial Vital Signs Initial Vital Signs: Vital Signs Temperature 97.5 F L 06/19/21 12:46 Pulse Rate 78 06/19/21 12:46 Respiratory Rate 16 06/19/21 12:46 Blood Pressure 201/100 H 06/19/21 12:46 Pulse Oximetry 96 06/19/21 12:46 <Bushra Mercado DO - Last Filed: 06/24/21 02:25> Initial Vital Signs Initial Vital Signs: Vital Signs Temperature 97.5 F L 06/19/21 12:46 Pulse Rate 78 06/19/21 12:46 Respiratory Rate 16 06/19/21 12:46 Blood Pressure 201/100 H 06/19/21 12:46 Pulse Oximetry 96 06/19/21 12:46 Course <Raquel Huntley PA-C - Last Filed: 06/19/21 21:40> Orders Ordered: Discontinued Medications Acetaminophen/Codeine Phosphate (Codeine/Acetaminophen 30/300 Tablet) 1 tab PO NOW ONE Stop: 06/19/21 14:41 Last Admin: 06/19/21 14:55 Dose: 1 tab Documented by: LORIEONER Ketorolac Tromethamine (Ketorolac 30 Mg/Ml Vial) 15 mg IM NOW ONE Stop: 06/19/21 13:34 Last Admin: 06/19/21 14:04 Dose: 15 mg Documented by: BTONER Ondansetron HCl (Ondansetron 8 Mg Tablet) 4 mg PO NOW ONE Stop: 06/19/21 13:34 Vital Signs Vital signs: Vital Signs - 8 hr 06/19/21 15:59 Temperature 98.3 F Pulse Rate 90 Respiratory Rate 14 Blood Pressure 165/94 H Pulse Oximetry 94 <Bushra Mercado DO - Last Filed: 06/24/21 02:25> Orders Ordered: Discontinued Medications Acetaminophen/Codeine Phosphate (Codeine/Acetaminophen 30/300 Tablet) 1 tab PO NOW ONE Stop: 06/19/21 14:41 Last Admin: 06/19/21 14:55 Dose: 1 tab Documented by: BTONER Ketorolac Tromethamine (Ketorolac 30 Mg/Ml Vial) 15 mg IM NOW ONE Stop: 06/19/21 13:34 Last Admin: 06/19/21 14:04 Dose: 15 mg Documented by: BTONER Ondansetron HCl (Ondansetron 8 Mg Tablet) 4 mg PO NOW ONE Stop: 06/19/21 13:34 Vital Signs Vital signs: Vital Signs - 8 hr 06/19/21 15:59 Temperature 98.3 F Pulse Rate 90 Respiratory Rate 14 Blood Pressure 165/94 H Pulse Oximetry 94 MDM - Extremity Injury (Upper) <Raquel Huntley PA-C - Last Filed: 06/19/21 21:40> Imaging Data Extremity x-ray #1: Radiologist's Impression: PROCEDURE: XR SHOULDER LT MIN 2V INDICATIONS: L shoulder pain/injury TECHNIQUE: 3 views of the shoulder were acquired. COMPARISON: [facility], [place], XR CHEST 1V, 01/12/2019, 22:39. FINDINGS: Bones: Comminuted left humeral head and neck fracture with impaction. No suspicious bony lesions. Possible intra-articular body medial and inferior to the coracoid process. Visualized ribs appear intact. Soft tissues: No suspicious soft tissue calcifications. IMPRESSION: Comminuted humeral head and neck fracture with impaction. Dictated by: Shelli Rao M.D. on 06/19/2021 at 12:50 Approved by: Shelli Rao M.D. on 06/19/2021 at 12:53 PROCEDURE: XR HUMERUS LT 2V INDICATIONS: fall on L elbow TECHNIQUE: 2 views of the humerus were acquired. COMPARISON: None. FINDINGS: Bones: Comminuted fracture involving the left humeral head and neck. Soft tissues: No suspicious soft tissue calcifications. IMPRESSION: Comminuted proximal left humerus fracture. Dictated by: Eva Cuba MD, PhD on 06/19/2021 at 14:21 Approved by: Eva Cuba MD, PhD on 06/19/2021 at 14:22 PROCEDURE: XR ELBOW LT 2V INDICATIONS: fall on L elbow TECHNIQUE: To views of the elbow were acquired. COMPARISON: None. FINDINGS: Bones: Limited secondary to lack of lateral view of the left elbow. No displaced fracture identified. Soft tissues: No elbow joint effusion. No suspicious soft tissue calcifications. IMPRESSION: Limited examination secondary to inability of patient to position elbow for standard x-ray series. No definite fracture identified. No definite osseous lesion. If symptoms and/or clinical suspicion for pathology persists, further assessment with repeat radiographs (7-10 days) or advanced imaging (e.g. CT, MRI or bone scan) should be considered. Dictated by: Eva Cuba MD, PhD on 06/19/2021 at 14:20 Approved by: Eva Cuba MD, PhD on 06/19/2021 at 14:21 [facility] Narrative Medical decision making narrative: 71 yo female [id number] who sustained ground level fall found to have a left comminuted, closed nondisplaced proximal humerus fracture. No neurological deficits. Became nauseous due to pain received Zofran, Toradol, and Tylenol with codeine. Patient was placed in a sling was given orthopedic referral for follow-up. Patient was prescribed Tylenol with codeine for acute pain and is instructed to begin anti-inflammatory medications in 24 hours. Please follow up with PCP or specialist as directed. Return to clinic/ER precautions discussed with patient for new, not-improving, or worsening symptoms. Discharge Plan Departure Patient Disposition: Home Clinical Impression: Fracture of head of left humerus Qualifiers: Encounter type: initial encounter Fracture type: closed Qualified Code(s): S42.292A - Other displaced fracture of upper end of left humerus, initial encounter for closed fracture Instructions: DI for Shoulder Fracture Activity Restrictions/Additional Instructions: *You have been diagnosed with [closed fracture of the left humeral head] *What to do: [X] New medication prescriptions sent to your pharmacy: [Zofran to use as needed for nausea, Tylenol with codeine for severe pain] [ ] New medication written as a paper prescription [ ] No new medications given * You can begin anti-inflammatory medication of naproxen in 24 hours. * Please call to arrange follow up with [facility] (information provided on this discharge paperwork) for follow-up in the next week. * Please follow-up with your primary care provider in 2-3 days, call for an appointment. Let them know you were seen in the emergency department and that we ask you to be seen in follow-up. * if you do not have a primary care provider, please contact the [facility] Resource line at [phone]. They will ask some questions about your medical history and help to get up with a doctor in the community. * Return to the if you should have any new, worsening, or concerning symptoms, such as [numbness, tingling, worsened pain]. Prescriptions: New ondansetron HCl [Zofran] 4 mg tablet 4 mg PO Q6H PRN (Reason: nausea and vomiting) Qty: 14 RF: 0 acetaminophen-codeine 300-30 mg tablet 1 tab PO Q6H PRN (Reason: pain) Qty: 14 RF: 0 No Action meclizine 12.5 mg Tablet 25 mg PO Q6HR PRN (Reason: Vertigo) Qty: 120 RF: 0 Referrals: Jasmin Kruse MD [Physician] - 5-7 days (Patient with closed left humeral head fracture) Kylie Watt DO [Primary Care Provider] - <Bushra Mercado DO - Last Filed: 06/24/21 02:25> Cosign ED Attending Azaelature Attestation: I was immediately available in the department for consultation. Documentation has been reviewed. Case was discussed and discussed coaptation splint maybe appropriate if patient in significant pain. NVI.
--- NOTE | 2021-06-19 13:10 | DI.RAD.S_ITS ---
PROCEDURE: XR HUMERUS LT 2V INDICATIONS: fall on L elbow TECHNIQUE: 2 views of the humerus were acquired. COMPARISON: None. FINDINGS: Bones: Comminuted fracture involving the left humeral head and neck. Soft tissues: No suspicious soft tissue calcifications. IMPRESSION: Comminuted proximal left humerus fracture. Dictated by: Eva Cuba MD, PhD on 06/19/2021 at 14:21 Approved by: Eva Cuba MD, PhD on 06/19/2021 at 14:22
--- NOTE | 2021-06-19 13:10 | DI.RAD.S_ITS ---
PROCEDURE: XR ELBOW LT 2V INDICATIONS: fall on L elbow TECHNIQUE: To views of the elbow were acquired. COMPARISON: None. FINDINGS: Bones: Limited secondary to lack of lateral view of the left elbow. No displaced fracture identified. Soft tissues: No elbow joint effusion. No suspicious soft tissue calcifications. IMPRESSION: Limited examination secondary to inability of patient to position elbow for standard x-ray series. No definite fracture identified. No definite osseous lesion. If symptoms and/or clinical suspicion for pathology persists, further assessment with repeat radiographs (7-10 days) or advanced imaging (e.g. CT, MRI or bone scan) should be considered. Dictated by: Eva Cuba MD, PhD on 06/19/2021 at 14:20 Approved by: Eva Cuba MD, PhD on 06/19/2021 at 14:21
[2021-06-19] MEDS: KETOROLAC 30 MG/ML VIAL 15 MG IM (14:04)
[2021-06-19] MEDS: CODEINE/ACETAMINOPHEN 30/300 TABLET 1 TAB PO (14:55)
[2021-06-19 15:59] VITALS: BP 165/94; PULSE 90; RESP 14; TEMP 36.8; O2SAT 94
== END 2021-06-19 16:15 | disposition home or self-care (01) ==
PROVIDERS: Emergency Provider Physician Assistant; PCP Family Medicine
DX: S42.202A Unspecified fracture of upper end of left humerus, initial encounter for closed fracture (principal); W01.198A Fall on same level from slipping, tripping and stumbling with subsequent striking against other object, initial encounter
CPT/HCPCS: 73030; 73060; 73070; 96372; 99283; J1885

== ENCOUNTER 2021-08-15 09:37 | Emergency (ER) | payer MEDICARE, OTHER, SELFPAY ==
[2018-03-28 19:57] VITALS: BMI 64.0
[2021-08-15 09:40] VITALS: BP 152/87; PULSE 96; RESP 15; TEMP 36.5; O2SAT 95; BMI 53.2
--- NOTE | 2021-08-15 09:49 | DI.US.S_ITS ---
PROCEDURE: US PERIPH VENOUS LOW EXTREM LT INDICATIONS: Left lower extremity pain, clinical concern for dvt TECHNIQUE: Real-time imaging, as well as color and pulse Doppler interrogation, were performed of the lower extremity deep veins from the inguinal ligament to the popliteal fossa. COMPARISON: None. FINDINGS: The common femoral, femoral and popliteal veins are normally compressible, and free of intraluminal thrombus. Color and pulse Doppler demonstrate normal phasic intraluminal flow. There is normal augmentation response to distal compression maneuver. IMPRESSION: Negative for deep venous thrombosis. Dictated by: Ryder Knapp M.D. on 08/15/2021 at 10:05 Approved by: Ryder Knapp M.D. on 08/15/2021 at 10:06
--- NOTE | 2021-08-15 10:02 | ED_ITS ---
HPI - Extremity Injury (Lower) General Chief Complaint: Extremity Injury, Lower Stated Complaint: Sent From PCP, Fall, Part in L Leg Hurting, Hx DVT Time Seen by Provider: 08/15/21 10:02 Source: patient Mode of arrival: Ambulatory Limitations: no limitations History of Present Illness HPI Narrative: This is a 71-year-old female who comes to the emergency department she had a fall at the beginning of the month she broke her arm and followed up with Dr. Kruse or on the . She states she has had some intermittent discomfort in the calf of her left leg. She states she has been ambulating without issue and not particularly painful. She has occasionally had some redness around the knee but does not currently. She states the pain is more in her calf and she was rubbing some cream on her leg and noticed that the calf was painful. Patient does not appreciate any significant new swelling. There is no redness at this point. She denies any fevers. She denies any other injuries. She has been taking Tylenol and ibuprofen daily with a combined 1000 mg total of Tylenol in 24 hours and 400 mg of ibuprofen. She denies any other symptoms or concerns. She denies any numbness or tingling or weakness. Related Data Previous Rx's Medication Instructions Recorded meclizine 12.5 mg tablet 25 mg PO Q6HR PRN #120 tab 03/30/18 acetaminophen 300 mg-codeine 30 mg 1 tab PO Q6H PRN #14 tab 06/19/21 tablet ondansetron HCl 4 mg tablet 4 mg PO Q6H PRN #14 tab 06/19/21 (Zofran) Allergies Allergy/AdvReac Type Severity Reaction Status Date / Time adhesive [ADHESIVE] Allergy Severe RASH Verified 08/15/21 09:46 PAPER/SILK TAPE OK aspartame [ASPARTAME] Allergy Severe COMA Verified 08/15/21 09:46 iodine [IODINE] Allergy Severe SOB, RASH Verified 08/15/21 09:46 latex [LATEX] Allergy Severe RASH Verified 08/15/21 09:46 Sulfa (Sulfonamide Allergy Severe RASH Verified 08/15/21 09:46 Antibiotics) [SULFA (SULFONAMIDE ANTIBIOTICS)] codeine [CODEINE] AdvReac Severe PROJECTILE Verified 08/15/21 09:46 VOMITING hydrocodone [HYDROCODONE] AdvReac Severe PROJECTILE Verified 08/15/21 09:46 VOMITING oxycodone [From OXYCONTIN] AdvReac Severe PROJECTILE Verified 08/15/21 09:46 VOMITING Review of Systems Review of Systems ROS Unobtainable: All systems reviewed & are unremarkable except as noted in HPI and below Patient History Medical History (Updated 08/15/21 @ 11:40 by Bushra Mercado DO) Diabetes Social History household members: none Smoking Status: Never smoker alcohol intake: never Smoking Status: Never smoker alcohol intake frequency: holidays/special occasions only Substance Use Type: does not use Exam Narrative Exam Narrative: GENERAL: Alert and oriented x three, obese female in mild distress. HEENT: Head normocephalic, atraumatic, EOMI, pupils reactive, face symmetric, moist mucous membranes NECK: Supple, full range of motion CARDIOVASCULAR: Regular rate and rhythm without murmurs, rubs or gallops. RESPIRATORY: Breath sounds equal bilaterally, no wheezes rales or rhonchi. ABDOMEN: Soft, nontender. Normoactive bowel sounds all 4 quadrants. No guarding or rebound, rigidity, no mass EXTREMITIES: Normal range of motion, no clubbing or edema. Neurovascularly intact. Patient has some mild tenderness on squeeze of the left calf. She does not have any other bony tenderness of the lower extremity except for some very slight at the left trochanter. She is able to stand and ambulate without issue. She does not have any obvious bruising or skin changes appreciated on initial exam. She has normal range of motion. With 5/5 muscle strength. Normal sensation. No warmth, erythema or redness appreciated. NEUROLOGICAL: Cranial nerves II through XII grossly intact. Moving all extremities SKIN: Warm, dry, no petechiae, no rashes or lesions. Initial Vital Signs Initial Vital Signs: Vital Signs Temperature 97.7 F 08/15/21 09:40 Pulse Rate 96 H 08/15/21 09:40 Respiratory Rate 15 08/15/21 09:40 Blood Pressure 152/87 H 08/15/21 09:40 Pulse Oximetry 95 08/15/21 09:40 Course Orders Ordered: ED Orders 08/15/21 09:49 US periph venous low extrem lt Stat Vital Signs Vital signs: Vital Signs - 8 hr 08/15/21 09:40 08/15/21 10:57 08/15/21 10:58 Temperature 97.7 F Pulse Rate 96 H 82 82 Respiratory Rate 15 Blood Pressure 152/87 H 139/63 Pulse Oximetry 95 95 94 08/15/21 11:00 08/15/21 11:30 Temperature Pulse Rate 81 79 Respiratory Rate 17 Blood Pressure 139/63 Pulse Oximetry 95 90 L MDM - Extremity Injury (Lower) Imaging Data US - DVT: Radiologist's Impression: Merle Chu 71 F [address] [id number] ReportSigned Patient: Merle Chu TMR#: [id number]: 1950cct:[id number]/Sex: 71 / FDate of Service: 08/15/21Loc: EDAccession Number: [id number] Procedure: US periph venous low extrem lt Ordering Provider: Bushra Mercado D.O. PROCEDURE: US PERIPH VENOUS LOW EXTREM LT INDICATIONS: Left lower extremity pain, clinical concern for dvt TECHNIQUE: Real-time imaging, as well as color and pulse Doppler interrogation, were performed of the lower extremity deep veins from the inguinal ligament to the popliteal fossa. COMPARISON: None. FINDINGS: The common femoral, femoral and popliteal veins are normally com pressible, and free of intraluminal thrombus. Color and pulse Doppler demonstrate normal phasic intraluminal flow. There is normal augmentation response to distal compression maneuver. IMPRESSION: Negative for deep venous thrombosis. Dictated by: Ryder Knapp M.D. on 08/15/2021 at 10:05 Approved by: Ryder Knapp M.D. on 08/15/2021 at 10:06 [facility] Narrative Medical decision making narrative: This is a 71-year-old female with left calf pain in the setting of recent fall and injury history of DVTs. Patient is tender over her calf with no other changes on exam and she has been ambulating and moving without issue. DVT ultrasound is negative D-dimer was deferred as patient would likely be positive basic on her BMI and age and increased risk overall for DVT. X-rays were deferred as patient is ambulating without much issue. We discussed her pain medication options and she has been under dosing and could have some increased options for pain control and this was discussed chair to patient. Discharge Plan Departure Patient Disposition: Home Clinical Impression: Leg pain, left Instructions: DI for Leg Pain Activity Restrictions/Additional Instructions: Follow-up with your physician if you continue to have symptoms. Your DVT ultrasound today is negative. My suspicion for fracture or break is quite low issue been able to ambulate without issue. You may take Tylenol up to a 1000 mg every 8 hours and/or ibuprofen up to 600 mg every 6 hours. You may use ice or heat to the affected area if you find it helpful. Please return for rapidly worsening symptoms, new redness, warmth or skin changes, inability to walk or move your leg, new numbness or tingling or weakness or other new or concerning symptoms. Prescriptions: No Action meclizine 12.5 mg Tablet 25 mg PO Q6HR PRN (Reason: Vertigo) Qty: 120 RF: 0 ondansetron HCl [Zofran] 4 mg tablet 4 mg PO Q6H PRN (Reason: nausea and vomiting) Qty: 14 RF: 0 acetaminophen-codeine 300-30 mg tablet 1 tab PO Q6H PRN (Reason: pain) Qty: 14 RF: 0 Referrals: Kylie Watt DO [Primary Care Provider] -
[2021-08-15 10:57] VITALS: PULSE 82; O2SAT 95
[2021-08-15 10:58] VITALS: BP 139/63; PULSE 82; O2SAT 94
[2021-08-15 11:00] VITALS: BP 139/63; PULSE 81; PULSE 82; RESP 17; O2SAT 95
--- NOTE | 2021-08-15 11:04 | PC.NURSE ---
Patient states her L-knee hurts x 2 days. [facility] home health nurse was at her home within the past 2 days and palpated left knee which caused pain 7/10. Pt states she has hx of DVT.
[2021-08-15 11:30] VITALS: PULSE 79; RESP 16; O2SAT 94
== END 2021-08-15 11:49 | disposition home or self-care (01) ==
PROVIDERS: Emergency Provider Emergency Medicine; PCP Family Medicine
DX: M79.605 Pain in left leg (principal)
CPT/HCPCS: 93971; 99283

== ENCOUNTER 2022-04-30 21:51 | Emergency (ER) | payer MEDICARE, OTHER, SELFPAY ==
[2018-03-28 19:57] VITALS: BMI 64.0
[2022-04-30] VITALS (15 sets, daily range): BP systolic 123–191; BP diastolic 58–94; PULSE 68–86; RESP 16–35; TEMP 36.9; O2SAT 93–99; BMI 56.2
--- NOTE | 2022-04-30 22:18 | DI.RAD.S_ITS ---
PROCEDURE: XR CHEST 1V INDICATIONS: chest pain TECHNIQUE: One view of the chest was acquired. COMPARISON: [facility], CR, XR CHEST 1V, 01/12/2019, 22:39. FINDINGS: Surgical changes and devices: None. Lungs and pleura: Lungs are clear. No pleural effusions or pneumothorax. Mediastinum: Mediastinal contours appear normal. Heart size is normal. Bones and chest wall: No suspicious bony lesions. Overlying soft tissues appear unremarkable. IMPRESSION: 1. No acute cardiopulmonary disease. Dictated by: Boom Jc M.D. on 04/30/2022 at 23:35 Approved by: Boom Jc M.D. on 04/30/2022 at 23:35
[2022-04-30 22:25] LABS: Add Manual Diff / Slide Review NO; Basophils Absolute Auto 100 /uL (0-100); Basophils Percent Auto 1.4 % (0-2); Eosinophils Absolute Auto 100 /uL (0-450); Eosinophils Percent Auto 1.9 % (2-4); Hemoglobin 15.3 g/dL (12.0-16.0); Lymphocytes Absolute Auto 2400 /uL (1100-4500); Lymphocytes Percent Auto 34.7 % (25-40); Mean Corpuscular Hemoglobin 30.6 PG (26-34); Mean Corpuscular Volume 89.7 fL (80-100); Monocytes Absolute Auto 600 /uL (0-900); Monocytes Percent Auto 8.3 % (3-14); Neutrophils Absolute Auto 3700 /uL (1500-7000); Neutrophils Percent Auto 53.7 % (50-75); Platelet Count 232 X10^3/uL (150-400); Red Blood Cell Count 5.02 X10^6/uL (4.0-5.2); Red Cell Distribution Width 13.5 % (11.6-14.8); White Blood Cell Count 6.9 X10^3/uL (4.5-11.0)
[2022-04-30 22:30] LABS: Alanine Aminotransferase 16 IU/L (<35); Albumin 4.3 g/dL (3.5-5.0); Alkaline Phosphatase 105 U/L (38-126); Aspartate Aminotransferase 29 IU/L (14-36); BUN Creatinine Ratio 17.1 (6-22); Bilirubin Total 0.6 mg/dL (0.2-1.3); Blood Urea Nitrogen 12 mg/dL (7-17); Calcium 9.3 mg/dL (8.4-10.2); Carbon Dioxide 29 mmol/L (22-32); Chloride 103 mmol/L (98-107); Creatine Kinase 61 U/L (30-135); Estimated Glomerular Filt Rate > 60 mL/min (>60); Globulin 4.2 g/dL (1.7-4.1); Glucose 132 mg/dL (80-110); HEMOLYSIS 16 (0-50); Lipase 193 U/L (23-300); Magnesium 1.8 mg/dL (1.6-2.3); Potassium 3.8 mmol/L (3.4-5.1); Sodium 141 mmol/L (137-145); Total Protein 8.5 g/dL (6.3-8.2)
[2022-04-30 22:41] LABS: Troponin I 0.115 ng/mL (0.01-0.034)
--- NOTE | 2022-04-30 22:53 | ED.CHESTPAIN ---
HPI - Chest Pain <Bushra Mercado, - Last Filed: 05/08/22 08:22> General Chief Complaint: Chest Pain Stated Complaint: sob, jaw pain, chest pressure Time Seen by Provider: 04/30/22 22:51 Source: patient Mode of arrival: Ambulatory Limitations: no limitations Limitations: no limitations History of Present Illness HPI narrative: This is a 71-year-old female on lisinopril and metformin for hypertension and diabetes. Patient states for the past 2 weeks she is had chest heaviness, shortness of breath that radiates into her jaw and arms with exertion. Patient states it would always resolve. She states it has been going on for about 2 weeks. She states tonight she developed chest pain centrally as well as the pressure, shortness of breath and radiation of pressure to her jaw and arms. She also has been quite nauseated. She has not vomited. She denies fevers or chills. She is not been diaphoretic. She is noted she is been much more fatigued lately. She states the pain has resolved but the heaviness in her chest is still present she still feels short of breath. She is had some increased swelling in her legs but she states this comes and goes. No cough, cold or congestion. No issues such as diarrhea or constipation. No urinary issues. Patient is on lisinopril 40 mg daily and metformin 500 mg twice daily. She took 650 mg of enteric-coated aspirin prior to arrival. She has had prior left knee surgery broke her shoulder last May but no other prior surgeries. She is never had a stress test, no cardiac stents she is never seen Cardiology. She is unsure of her family history she is adopted. She is allergic to sulfa, latex. No tobacco, alcohol or illicit. Her primary care was Steph Garcia who just recently left the area. Related Data Previous Rx's Medication Instructions Recorded meclizine 12.5 mg tablet 25 mg PO Q6HR PRN Vertigo #120 tabs 03/30/18 acetaminophen 300 mg-codeine 30 mg 1 tab PO Q6H PRN pain #14 tabs 06/19/21 tablet ondansetron HCl 4 mg tablet 4 mg PO Q6H PRN nausea and 06/19/21 (Zofran) vomiting #14 tabs Allergies Allergy/AdvReac Type Severity Reaction Status Date / Time adhesive [ADHESIVE] Allergy Severe RASH Verified 04/30/22 22:04 PAPER/SILK TAPE OK aspartame [ASPARTAME] Allergy Severe COMA Verified 04/30/22 22:04 iodine [IODINE] Allergy Severe SOB, RASH Verified 04/30/22 22:04 latex [LATEX] Allergy Severe RASH Verified 04/30/22 22:04 Sulfa (Sulfonamide Allergy Severe RASH Verified 04/30/22 22:04 Antibiotics) [SULFA (SULFONAMIDE ANTIBIOTICS)] codeine [CODEINE] AdvReac Severe PROJECTILE Verified 04/30/22 22:04 VOMITING hydrocodone [HYDROCODONE] AdvReac Severe PROJECTILE Verified 04/30/22 22:04 VOMITING oxycodone [From OXYCONTIN] AdvReac Severe PROJECTILE Verified 04/30/22 22:04 VOMITING Review of Systems <Bushra Mercado DO - Last Filed: 05/08/22 08:22> Review of Systems ROS Unobtainable: All systems reviewed & are unremarkable except as noted in HPI and below Patient History <Bushra Mercado DO - Last Filed: 05/08/22 08:22> Medical History (Updated 05/01/22 @ 04:06 by Bushra Mercado DO) Diabetes Social History household members: none Smoking Status: Never smoker alcohol intake: never Smoking Status: Never smoker alcohol intake frequency: holidays/special occasions only Substance Use Type: does not use Exam <Bushra Mercado DO - Last Filed: 05/08/22 08:22> Narrative Exam Narrative: GENERAL: Alert and oriented x three, female in mild distress. HEENT: Head normocephalic, atraumatic, EOMI, pupils reactive, face symmetric, moist mucous membranes NECK: Supple, full range of motion CARDIOVASCULAR: Regular rate and rhythm without murmurs, rubs or gallops. Non reproducible chest pain. No JVD. RESPIRATORY: Breath sounds equal bilaterally, no wheezes rales or rhonchi. ABDOMEN: Soft, nontender. Normoactive bowel sounds all 4 quadrants. No guarding or rebound, rigidity, no mass : No CVA tenderness EXTREMITIES: Normal range of motion, no clubbing or edema. Neurovascularly intact NEUROLOGICAL: Cranial nerves II through XII grossly intact. Moving all extremities SKIN: Warm, dry, no petechiae, no rashes or lesions. Initial Vital Signs Initial Vital Signs: Vital Signs Temperature 98.5 F 04/30/22 21:55 Pulse Rate 85 04/30/22 21:55 Respiratory Rate 24 04/30/22 21:55 Blood Pressure 161/78 H 04/30/22 21:55 Pulse Oximetry 99 04/30/22 21:55 Oxygen Delivery Method 04/30/22 21:55 <Charles Veloz DO - Last Filed: 05/01/22 16:11> Initial Vital Signs Initial Vital Signs: Vital Signs Temperature 98.5 F 04/30/22 21:55 Pulse Rate 85 04/30/22 21:55 Respiratory Rate 24 04/30/22 21:55 Blood Pressure 161/78 H 04/30/22 21:55 Pulse Oximetry 99 04/30/22 21:55 Oxygen Delivery Method 04/30/22 21:55 Course <Bushra Mercado, - Last Filed: 05/08/22 08:22> Orders Ordered: Discontinued Medications Atorvastatin Calcium (Atorvastatin 20 Mg Tablet) 80 mg PO NOW ONE Stop: 05/01/22 00:53 Last Admin: 05/01/22 00:59 Dose: 80 mg Documented By: YOSHI Diazepam (Diazepam 10 Mg/2 Ml Syringe) 2 mg IV NOW ONE Stop: 05/01/22 02:29 Last Admin: 05/01/22 02:33 Dose: 2 mg Documented By: UZAIR Heparin Sodium (Porcine) (Heparin 5,000 Unit/Ml Vial) 5,000 unit IV NOW ONE Stop: 05/01/22 00:30 Last Admin: 05/01/22 00:40 Dose: 5,000 unit Documented By: UZAIR Heparin Sodium/Dextrose (Heparin Drip) 25,000 unit in 500 mls @ 20 mls/hr IV CONT ERICKSON; Protocol Last Titration: 05/01/22 10:30 Dose: 0 units/hr, 0 mls/hr Documented By: Titration: 05/01/22 08:30 Dose: 900 units/hr, 18 mls/hr Documented By: Titration: 05/01/22 07:05 Dose: 0 units/hr, 0 mls/hr Documented By: Admin: 05/01/22 00:40 Dose: 1,000 units/hr, 20 mls/hr Documented By: UZAIR Nitroglycerin (Nitroglycerin) 50 mg in 250 mls @ 1.5 mls/hr IV TITRATE ERICKSON; Protocol Last Titration: 05/01/22 10:30 Dose: 0 mcg/min, 0 mls/hr Documented By: Titration: 05/01/22 07:45 Dose: 10 mcg/min, 3 mls/hr Documented By: Titration: 05/01/22 07:06 Dose: 5 mcg/min, 1.5 mls/hr Documented By: Titration: 05/01/22 05:36 Dose: 10 mcg/min, 3 mls/hr Documented By: Titration: 05/01/22 02:05 Dose: 15 mcg/min, 4.5 mls/hr Documented By: Titration: 05/01/22 01:45 Dose: 10 mcg/min, 3 mls/hr Documented By: Admin: 05/01/22 01:00 Dose: 5 mcg/min, 1.5 mls/hr Documented By: YOSHI Nitroglycerin (Nitroglycerin 0.4 Mg Sl Tab) 0.4 mg SL [id number] PRN PRN Reason: Chest Pain Last Admin: 04/30/22 23:23 Dose: 0.4 mg Documented By: Admin: 04/30/22 23:08 Dose: 0.4 mg Documented By: UZAIR Ondansetron HCl (Ondansetron 4 Mg/2 Ml Inj) 4 mg IV NOW ONE Stop: 04/30/22 23:05 Last Admin: 04/30/22 23:08 Dose: 4 mg Documented By: UZAIR Ondansetron HCl (Ondansetron 4 Mg/2 Ml Inj) 4 mg IV NOW ONE Stop: 05/01/22 07:41 Last Admin: 05/01/22 07:59 Dose: 4 mg Documented By: MONICA Pantoprazole Sodium (Pantoprazole 40 Mg Vial) 40 mg IV NOW ONE Stop: 05/01/22 07:41 Last Admin: 05/01/22 07:59 Dose: 40 mg Documented By: MONICA Consultations Consultation #1: Dr. Rowland, cardiology. Recommends nitro drip, heparin, goal for transfer for catheterization lab in the morning if there is bed availability although regionally there is not. Time: 00:52 Vital Signs Vital signs: Vital Signs - 8 hr 05/01/22 08:20 05/01/22 08:20 05/01/22 08:30 Pulse Rate 71 Respiratory Rate 26 H Blood Pressure 109/55 L 105/56 L Pulse Oximetry 93 05/01/22 08:30 05/01/22 08:40 05/01/22 08:40 Pulse Rate 68 68 Respiratory Rate 24 22 Blood Pressure 114/61 Pulse Oximetry 93 92 05/01/22 08:50 05/01/22 08:50 05/01/22 09:00 Pulse Rate 63 Respiratory Rate 18 Blood Pressure 129/60 114/56 L Pulse Oximetry 92 05/01/22 09:00 05/01/22 09:10 05/01/22 09:10 Pulse Rate 61 67 Respiratory Rate 18 19 Blood Pressure 119/61 Pulse Oximetry 93 94 05/01/22 09:20 05/01/22 09:20 05/01/22 09:30 Pulse Rate 77 Respiratory Rate 23 Blood Pressure 107/58 L 123/61 Pulse Oximetry 92 05/01/22 09:30 05/01/22 09:40 05/01/22 09:40 Pulse Rate 66 79 Respiratory Rate 18 Blood Pressure 124/64 Pulse Oximetry 91 93 05/01/22 09:58 05/01/22 09:58 05/01/22 10:00 Pulse Rate 78 Respiratory Rate 18 Blood Pressure 114/70 104/63 Pulse Oximetry 96 05/01/22 10:00 Pulse Rate 79 Respiratory Rate 29 H Blood Pressure Pulse Oximetry 95 <Charles Veloz, - Last Filed: 05/01/22 16:11> Orders Ordered: Discontinued Medications Atorvastatin Calcium (Atorvastatin 20 Mg Tablet) 80 mg PO NOW ONE Stop: 05/01/22 00:53 Last Admin: 05/01/22 00:59 Dose: 80 mg Documented By: YOSHI Diazepam (Diazepam 10 Mg/2 Ml Syringe) 2 mg IV NOW ONE Stop: 05/01/22 02:29 Last Admin: 05/01/22 02:33 Dose: 2 mg Documented By: UZAIR Heparin Sodium (Porcine) (Heparin 5,000 Unit/Ml Vial) 5,000 unit IV NOW ONE Stop: 05/01/22 00:30 Last Admin: 05/01/22 00:40 Dose: 5,000 unit Documented By: UZAIR Heparin Sodium/Dextrose (Heparin Drip) 25,000 unit in 500 mls @ 20 mls/hr IV CONT ERICKSON; Protocol Last Titration: 05/01/22 10:30 Dose: 0 units/hr, 0 mls/hr Documented By: Titration: 05/01/22 08:30 Dose: 900 units/hr, 18 mls/hr Documented By: Titration: 05/01/22 07:05 Dose: 0 units/hr, 0 mls/hr Documented By: Admin: 05/01/22 00:40 Dose: 1,000 units/hr, 20 mls/hr Documented By: UZAIR Nitroglycerin (Nitroglycerin) 50 mg in 250 mls @ 1.5 mls/hr IV TITRATE ERICKSON; Protocol Last Titration: 05/01/22 10:30 Dose: 0 mcg/min, 0 mls/hr Documented By: Titration: 05/01/22 07:45 Dose: 10 mcg/min, 3 mls/hr Documented By: Titration: 05/01/22 07:06 Dose: 5 mcg/min, 1.5 mls/hr Documented By: Titration: 05/01/22 05:36 Dose: 10 mcg/min, 3 mls/hr Documented By: Titration: 05/01/22 02:05 Dose: 15 mcg/min, 4.5 mls/hr Documented By: Titration: 05/01/22 01:45 Dose: 10 mcg/min, 3 mls/hr Documented By: Admin: 05/01/22 01:00 Dose: 5 mcg/min, 1.5 mls/hr Documented By: HNG Nitroglycerin (Nitroglycerin 0.4 Mg Sl Tab) 0.4 mg SL [id number] PRN PRN Reason: Chest Pain Last Admin: 04/30/22 23:23 Dose: 0.4 mg Documented By: Admin: 04/30/22 23:08 Dose: 0.4 mg Documented By: UZAIR Ondansetron HCl (Ondansetron 4 Mg/2 Ml Inj) 4 mg IV NOW ONE Stop: 04/30/22 23:05 Last Admin: 04/30/22 23:08 Dose: 4 mg Documented By: UZAIR Ondansetron HCl (Ondansetron 4 Mg/2 Ml Inj) 4 mg IV NOW ONE Stop: 05/01/22 07:41 Last Admin: 05/01/22 07:59 Dose: 4 mg Documented By: MONICA Pantoprazole Sodium (Pantoprazole 40 Mg Vial) 40 mg IV NOW ONE Stop: 05/01/22 07:41 Last Admin: 05/01/22 07:59 Dose: 40 mg Documented By: MONICA Vital Signs Vital signs: Vital Signs - 8 hr 05/01/22 08:20 05/01/22 08:20 05/01/22 08:30 Pulse Rate 71 Respiratory Rate 26 H Blood Pressure 109/55 L 105/56 L Pulse Oximetry 93 05/01/22 08:30 05/01/22 08:40 05/01/22 08:40 Pulse Rate 68 68 Respiratory Rate 24 22 Blood Pressure 114/61 Pulse Oximetry 93 92 05/01/22 08:50 05/01/22 08:50 05/01/22 09:00 Pulse Rate 63 Respiratory Rate 18 Blood Pressure 129/60 114/56 L Pulse Oximetry 92 05/01/22 09:00 05/01/22 09:10 05/01/22 09:10 Pulse Rate 61 67 Respiratory Rate 18 19 Blood Pressure 119/61 Pulse Oximetry 93 94 05/01/22 09:20 05/01/22 09:20 05/01/22 09:30 Pulse Rate 77 Respiratory Rate 23 Blood Pressure 107/58 L 123/61 Pulse Oximetry 92 05/01/22 09:30 05/01/22 09:40 05/01/22 09:40 Pulse Rate 66 79 Respiratory Rate 18 Blood Pressure 124/64 Pulse Oximetry 91 93 05/01/22 09:58 05/01/22 09:58 05/01/22 10:00 Pulse Rate 78 Respiratory Rate 18 Blood Pressure 114/70 104/63 Pulse Oximetry 96 05/01/22 10:00 Pulse Rate 79 Respiratory Rate 29 H Blood Pressure Pulse Oximetry 95 MDM - Chest Pain <Bushra Mercado, - Last Filed: 05/08/22 08:22> Lab Data Result diagrams: 04/30/22 22:00 04/30/22 22:00 Labs: Lab Results 04/30/22 04/30/22 04/30/22 Range/Units 22:00 22:00 22:00 WBC 6.9 (4.5-11.0) X10^3/uL RBC 5.02 (4.0-5.2) X10^6/uL Hgb 15.3 (12.0-16.0) g/dL Hct 45.0 (36-46) % MCV 89.7 (80-100) fL MCH 30.6 (26-34) PG MCHC 34.0 (30-36) % RDW 13.5 (11.6-14.8) % Plt Count 232 (150-400) X10^3/uL Neut % (Auto) 53.7 (50-75) % Lymph % (Auto) 34.7 (25-40) % [place] % (Auto) 8.3 (3-14) % Eos % (Auto) 1.9 L (2-4) % Baso % (Auto) 1.4 (0-2) % Neut # (Auto) 3700 (9269-9796) /uL Lymph # (Auto) 2400 (9043-1257) /uL [place] # (Auto) 600 (0-900) /uL Eos # (Auto) 100 (0-450) /uL Baso # (Auto) 100 (0-100) /uL PT (10.1-12.7) SECONDS INR (0.9-1.3) APTT (26.4-36.2) SECONDS Sodium 141 (137-145) mmol/L Potassium 3.8 (3.4-5.1) mmol/L Chloride 103 (98-107) mmol/L Carbon Dioxide 29 (22-32) mmol/L BUN 12 (7-17) mg/dL Creatinine 0.70 (0.52-1.04) mg/dL Estimated GFR > 60 (>60) mL/min BUN/Creatinine Ratio 17.1 (6-22) Glucose 132 H (80-110) mg/dL Calcium 9.3 (8.4-10.2) mg/dL Magnesium 1.8 (1.6-2.3) mg/dL Total Bilirubin 0.6 (0.2-1.3) mg/dL AST 29 (14-36) IU/L ALT 16 (<35) IU/L Alkaline Phosphatase 105 (38-126) U/L Total Creatine Kinase 61 (30-135) U/L CK-MB (CK-2) TNP CK-MB (CK-2) Rel Index TNP Troponin I 0.115 H (0.01-0.034) ng/mL NT-Pro-B Natriuret Pep 88 (<125) pg/mL Total Protein 8.5 H (6.3-8.2) g/dL Albumin 4.3 (3.5-5.0) g/dL Globulin 4.2 H (1.7-4.1) g/dL Albumin/Globulin Ratio 1.0 (1.0-2.8) Lipase 193 (23-300) U/L SARS-CoV-2 (PCR) (Negative) 04/30/22 04/30/22 04/30/22 Range/Units 22:00 22:05 23:48 WBC (4.5-11.0) X10^3/uL RBC (4.0-5.2) X10^6/uL Hgb (12.0-16.0) g/dL Hct (36-46) % MCV (80-100) fL MCH (26-34) PG MCHC (30-36) % RDW (11.6-14.8) % Plt Count (150-400) X10^3/uL Neut % (Auto) (50-75) % Lymph % (Auto) (25-40) % [place] % (Auto) (3-14) % Eos % (Auto) (2-4) % Baso % (Auto) (0-2) % Neut # (Auto) (9631-8671) /uL Lymph # (Auto) (0591-5972) /uL [place] # (Auto) (0-900) /uL Eos # (Auto) (0-450) /uL Baso # (Auto) (0-100) /uL PT 11.5 (10.1-12.7) SECONDS INR 1.0 (0.9-1.3) APTT 33 (26.4-36.2) SECONDS Sodium (137-145) mmol/L Potassium (3.4-5.1) mmol/L Chloride (98-107) mmol/L Carbon Dioxide (22-32) mmol/L BUN (7-17) mg/dL Creatinine (0.52-1.04) mg/dL Estimated GFR (>60) mL/min BUN/Creatinine Ratio (6-22) Glucose (80-110) mg/dL Calcium (8.4-10.2) mg/dL Magnesium (1.6-2.3) mg/dL Total Bilirubin (0.2-1.3) mg/dL AST (14-36) IU/L ALT (<35) IU/L Alkaline Phosphatase (38-126) U/L Total Creatine Kinase (30-135) U/L CK-MB (CK-2) CK-MB (CK-2) Rel Index Troponin I 0.151 H* (0.01-0.034) ng/mL NT-Pro-B Natriuret Pep (<125) pg/mL Total Protein (6.3-8.2) g/dL Albumin (3.5-5.0) g/dL Globulin (1.7-4.1) g/dL Albumin/Globulin Ratio (1.0-2.8) Lipase (23-300) U/L SARS-CoV-2 (PCR) Negative (Negative) 05/01/22 05/01/22 05/01/22 Range/Units 06:20 06:20 07:25 WBC (4.5-11.0) X10^3/uL RBC (4.0-5.2) X10^6/uL Hgb (12.0-16.0) g/dL Hct (36-46) % MCV (80-100) fL MCH (26-34) PG MCHC (30-36) % RDW (11.6-14.8) % Plt Count (150-400) X10^3/uL Neut % (Auto) (50-75) % Lymph % (Auto) (25-40) % [place] % (Auto) (3-14) % Eos % (Auto) (2-4) % Baso % (Auto) (0-2) % Neut # (Auto) (5449-5010) /uL Lymph # (Auto) (6359-2094) /uL [place] # (Auto) (0-900) /uL Eos # (Auto) (0-450) /uL Baso # (Auto) (0-100) /uL PT (10.1-12.7) SECONDS INR (0.9-1.3) APTT > 400 H* D 91 H* D (26.4-36.2) SECONDS Sodium (137-145) mmol/L Potassium (3.4-5.1) mmol/L Chloride (98-107) mmol/L Carbon Dioxide (22-32) mmol/L BUN (7-17) mg/dL Creatinine (0.52-1.04) mg/dL Estimated GFR (>60) mL/min BUN/Creatinine Ratio (6-22) Glucose (80-110) mg/dL Calcium (8.4-10.2) mg/dL Magnesium (1.6-2.3) mg/dL Total Bilirubin (0.2-1.3) mg/dL AST (14-36) IU/L ALT (<35) IU/L Alkaline Phosphatase (38-126) U/L Total Creatine Kinase (30-135) U/L CK-MB (CK-2) CK-MB (CK-2) Rel Index Troponin I 0.818 H* (0.01-0.034) ng/mL NT-Pro-B Natriuret Pep (<125) pg/mL Total Protein (6.3-8.2) g/dL Albumin (3.5-5.0) g/dL Globulin (1.7-4.1) g/dL Albumin/Globulin Ratio (1.0-2.8) Lipase (23-300) U/L SARS-CoV-2 (PCR) (Negative) Point of Care Testing Glucose POC 104 Imaging Data Chest x-ray: Radiologist's Impression: [address] [address] XRay Report Signed Patient: Merle Chu MR#: [id number] : 1950 Acct:[id number] Age/Sex: 71 / F Date of Service: 04/30/22 Loc: ED Accession Number: [id number] ?? Procedure: XR chest 1V Ordering Provider: Bushra Mercado D.O. PROCEDURE:? XR CHEST 1V ? INDICATIONS:? chest pain ? TECHNIQUE:? One view of the chest was acquired.? ? COMPARISON:? [facility], KAYLYN, XR CHEST 1V, 01/12/2019, 22:39. ? FINDINGS:? ? Surgical changes and devices:? None.? ? Lungs and pleura:? Lungs are clear.? No pleural effusions or pneumothorax.? ? Mediastinum:? Mediastinal contours appear normal.? Heart size is normal.? ? Bones and chest wall:? No suspicious bony lesions.? Overlying soft tissues appear unremarkable.? ? IMPRESSION:? ? 1.? No acute cardiopulmonary disease. ? ? ? Dictated by: Boom Jc M.D. on 04/30/2022 at 23:35 ? ? Approved by: Boom Jc M.D. on 04/30/2022 at 23:35?? ECG Data Attestation: I personally reviewed and interpreted this ECG as follows: Interpretation: Sinus rhythm rate of 79 [place] 182 QRS is 76 [address] QTC [address] elevation. Left axis deviation. Patient has prior EKG from 01/12/2019 which appears similar EKG2. Sinus rhythm rate of 68 [place] 190 QRS is 78 QTC 4-5. Patient is lead 3 is upright and was down words before as well as aVL being upright and AVF being down words which are changed from prior. No other acute ST changes appreciated. EKG was repeated again to evaluate for lead placement. EKG3. Shows sinus rhythm rate of 66 [place] 190 QRS is 78 QTC of 431. Patient's EKG has same axis deviation as the 1st EKG with no acute ST changes or new depression appreciated. Patient's EKG appears without dynamic changes from 1st EKG and prior from 2019. [facility] Narrative Medical decision making narrative: This is a 71-year-old female who comes in with complaint of exertional chest pain for the past 2 weeks which significantly worsened this evening she is no acute EKG changes, her labs show an elevated troponin although indeterminate is very close to positive, chest x-ray does not show acute process. Patient took aspirin 324 mg x 2 at home prior to arrival, she was given nitro sublingual here in the department patient did have improvement but shortly thereafter started having multiple episodes of dry heaves. She is very sensitive to narcotics and states they all make her vomit so this was deferred. She did have improvement almost resolution of her chest pain. Patient's EKG and troponin were repeated at 2 hours and troponin is now positive. Leads were flipped on 2nd EKG and was repeated a 3rd time and likely had limb lead placement changed as it appears same as 1st EKG. Patient was initiated with heparin bolus and drip, case was discussed with Cardiology patient does still have chest pain although improved was quite sensitive to oral nitro plan for nitro drip, heparin drip and attempted transfer soon as bed is available for cardiac catheterization. There is currently no bed availability regionally and critical shortages will attempt to transfer patient anywhere bed is available regionally. Patient signed out to Dr. Veloz while awaiting transfer. Nitro gtt and heparin gtt running. Case discussed with Dr. Rowland with goal to transfer for cardiac cath during day of 05/01/22 for NSTEMI. <Charles Veloz, DO - Last Filed: 05/01/22 16:11> Lab Data Labs: Lab Results 04/30/22 04/30/22 04/30/22 Range/Units 22:00 22:00 22:00 WBC 6.9 (4.5-11.0) X10^3/uL RBC 5.02 (4.0-5.2) X10^6/uL Hgb 15.3 (12.0-16.0) g/dL Hct 45.0 (36-46) % MCV 89.7 (80-100) fL MCH 30.6 (26-34) PG MCHC 34.0 (30-36) % RDW 13.5 (11.6-14.8) % Plt Count 232 (150-400) X10^3/uL Neut % (Auto) 53.7 (50-75) % Lymph % (Auto) 34.7 (25-40) % [place] % (Auto) 8.3 (3-14) % Eos % (Auto) 1.9 L (2-4) % Baso % (Auto) 1.4 (0-2) % Neut # (Auto) 3700 (4730-2767) /uL Lymph # (Auto) 2400 (1974-3830) /uL [place] # (Auto) 600 (0-900) /uL Eos # (Auto) 100 (0-450) /uL Baso # (Auto) 100 (0-100) /uL PT (10.1-12.7) SECONDS INR (0.9-1.3) APTT (26.4-36.2) SECONDS Sodium 141 (137-145) mmol/L Potassium 3.8 (3.4-5.1) mmol/L Chloride 103 (98-107) mmol/L Carbon Dioxide 29 (22-32) mmol/L BUN 12 (7-17) mg/dL Creatinine 0.70 (0.52-1.04) mg/dL Estimated GFR > 60 (>60) mL/min BUN/Creatinine Ratio 17.1 (6-22) Glucose 132 H (80-110) mg/dL Calcium 9.3 (8.4-10.2) mg/dL Magnesium 1.8 (1.6-2.3) mg/dL Total Bilirubin 0.6 (0.2-1.3) mg/dL AST 29 (14-36) IU/L ALT 16 (<35) IU/L Alkaline Phosphatase 105 (38-126) U/L Total Creatine Kinase 61 (30-135) U/L CK-MB (CK-2) TNP CK-MB (CK-2) Rel Index TNP Troponin I 0.115 H (0.01-0.034) ng/mL NT-Pro-B Natriuret Pep 88 (<125) pg/mL Total Protein 8.5 H (6.3-8.2) g/dL Albumin 4.3 (3.5-5.0) g/dL Globulin 4.2 H (1.7-4.1) g/dL Albumin/Globulin Ratio 1.0 (1.0-2.8) Lipase 193 (23-300) U/L SARS-CoV-2 (PCR) (Negative) 04/30/22 04/30/22 04/30/22 Range/Units 22:00 22:05 23:48 WBC (4.5-11.0) X10^3/uL RBC (4.0-5.2) X10^6/uL Hgb (12.0-16.0) g/dL Hct (36-46) % MCV (80-100) fL MCH (26-34) PG MCHC (30-36) % RDW (11.6-14.8) % Plt Count (150-400) X10^3/uL Neut % (Auto) (50-75) % Lymph % (Auto) (25-40) % [place] % (Auto) (3-14) % Eos % (Auto) (2-4) % Baso % (Auto) (0-2) % Neut # (Auto) (7787-4491) /uL Lymph # (Auto) (0936-4407) /uL [place] # (Auto) (0-900) /uL Eos # (Auto) (0-450) /uL Baso # (Auto) (0-100) /uL PT 11.5 (10.1-12.7) SECONDS INR 1.0 (0.9-1.3) APTT 33 (26.4-36.2) SECONDS Sodium (137-145) mmol/L Potassium (3.4-5.1) mmol/L Chloride (98-107) mmol/L Carbon Dioxide (22-32) mmol/L BUN (7-17) mg/dL Creatinine (0.52-1.04) mg/dL Estimated GFR (>60) mL/min BUN/Creatinine Ratio (6-22) Glucose (80-110) mg/dL Calcium (8.4-10.2) mg/dL Magnesium (1.6-2.3) mg/dL Total Bilirubin (0.2-1.3) mg/dL AST (14-36) IU/L ALT (<35) IU/L Alkaline Phosphatase (38-126) U/L Total Creatine Kinase (30-135) U/L CK-MB (CK-2) CK-MB (CK-2) Rel Index Troponin I 0.151 H* (0.01-0.034) ng/mL NT-Pro-B Natriuret Pep (<125) pg/mL Total Protein (6.3-8.2) g/dL Albumin (3.5-5.0) g/dL Globulin (1.7-4.1) g/dL Albumin/Globulin Ratio (1.0-2.8) Lipase (23-300) U/L SARS-CoV-2 (PCR) Negative (Negative) 05/01/22 05/01/22 05/01/22 Range/Units 06:20 06:20 07:25 WBC (4.5-11.0) X10^3/uL RBC (4.0-5.2) X10^6/uL Hgb (12.0-16.0) g/dL Hct (36-46) % MCV (80-100) fL MCH (26-34) PG MCHC (30-36) % RDW (11.6-14.8) % Plt Count (150-400) X10^3/uL Neut % (Auto) (50-75) % Lymph % (Auto) (25-40) % [place] % (Auto) (3-14) % Eos % (Auto) (2-4) % Baso % (Auto) (0-2) % Neut # (Auto) (2427-5647) /uL Lymph # (Auto) (0513-3093) /uL [place] # (Auto) (0-900) /uL Eos # (Auto) (0-450) /uL Baso # (Auto) (0-100) /uL PT (10.1-12.7) SECONDS INR (0.9-1.3) APTT > 400 H* D 91 H* D (26.4-36.2) SECONDS Sodium (137-145) mmol/L Potassium (3.4-5.1) mmol/L Chloride (98-107) mmol/L Carbon Dioxide (22-32) mmol/L BUN (7-17) mg/dL Creatinine (0.52-1.04) mg/dL Estimated GFR (>60) mL/min BUN/Creatinine Ratio (6-22) Glucose (80-110) mg/dL Calcium (8.4-10.2) mg/dL Magnesium (1.6-2.3) mg/dL Total Bilirubin (0.2-1.3) mg/dL AST (14-36) IU/L ALT (<35) IU/L Alkaline Phosphatase (38-126) U/L Total Creatine Kinase (30-135) U/L CK-MB (CK-2) CK-MB (CK-2) Rel Index Troponin I 0.818 H* (0.01-0.034) ng/mL NT-Pro-B Natriuret Pep (<125) pg/mL Total Protein (6.3-8.2) g/dL Albumin (3.5-5.0) g/dL Globulin (1.7-4.1) g/dL Albumin/Globulin Ratio (1.0-2.8) Lipase (23-300) U/L SARS-CoV-2 (PCR) (Negative) Point of Care Testing Glucose POC 104 MDM Narrative Medical decision making narrative: This is a 71-year-old female who comes in with complaint of exertional chest pain for the past 2 weeks which significantly worsened this evening she is no acute EKG changes, her labs show an elevated troponin although indeterminate is very close to positive, chest x-ray does not show acute process. Patient took aspirin 324 mg x 2 at home prior to arrival, she was given nitro sublingual here in the department patient did have improvement but shortly thereafter started having multiple episodes of dry heaves. She is very sensitive to narcotics and states they all make her vomit so this was deferred. She did have improvement almost resolution of her chest pain. Patient's EKG and troponin were repeated at 2 hours and troponin is now positive. Leads were flipped on 2nd EKG and was repeated a 3rd time and likely had limb lead placement changed as it appears same as 1st EKG. Patient was initiated with heparin bolus and drip, case was discussed with Cardiology patient does still have chest pain although improved was quite sensitive to oral nitro plan for nitro drip, heparin drip and attempted transfer soon as bed is available for cardiac catheterization. There is currently no bed availability regionally and critical shortages will attempt to transfer patient anywhere bed is available regionally. Patient signed out to Dr. Veloz while awaiting transfer. Nitro gtt and heparin gtt running. Case discussed with Dr. Rowland with goal to transfer for cardiac cath during day of 05/01/22 for NSTEMI. [0700] (Magdiel) Patient received in sign out from Dr. Thompson]. I have reviewed the clinical course and performed an independent history and physical exam. She currently is having low level pressure, will go up on NG,, also nauseated. Protonix and Zofran ordered call from [facility] and they will bring patient over for heart cath and will likely admit their afterwards, but could possibly send her back 1600 - called back from [facility], they went to cath and will be keeping her there Critical Care Time <Bushra Mercado, DO - Last Filed: 05/08/22 08:22> Critical Care Time Critical Care Time: Yes Attestation: The high probability of a clinically significant, sudden or life threatening deterioration of the [] system(s) required my full and direct attention, intervention and personal management. The aggregate critical care time was [] minutes. This time is in addition to time spent performing reported procedures but includes the following: [x] Data Review and interpretation [x] Patient assessment and monitoring of vital signs [x] Documentation [x] Medication orders and management <Charles Veloz, DO - Last Filed: 05/01/22 16:11> Critical Care Time Total Critical Care Time: 30 Attestation: The high probability of a clinically significant, sudden or life threatening deterioration of the [CV] system(s) required my full and direct attention, intervention and personal management. The aggregate critical care time was [30] minutes. This time is in addition to time spent performing reported procedures but includes the following: [x] Data Review and interpretation [x] Patient assessment and monitoring of vital signs [x] Documentation [x] Medication orders and management Discharge Plan Departure Patient Disposition: [facility] Clinical Impression: Non-ST elevation NV (NSTEMI) Prescriptions: No Action meclizine 12.5 mg Tablet 25 mg PO Q6HR PRN (Reason: Vertigo) Qty: 120 0RF ondansetron HCl [Zofran] 4 mg tablet 4 mg PO Q6H PRN (Reason: nausea and vomiting) Qty: 14 0RF acetaminophen-codeine 300-30 mg tablet 1 tab PO Q6H PRN (Reason: pain) Qty: 14 0RF Referrals: Kylie Watt DO [Primary Care Provider] -
--- NOTE | 2022-04-30 22:56 | PC.NURSE ---
Pt reports chest pressure and jaw pain that began 2 weeks ago with increasing severity today and SOB. Pt reports 8/10 substernal chest pressure, tiredness, nausea, slight headache, and feeling like my heart is racing. Pt took 650 mg aspirin at 2000 this evening.
[2022-04-30 23:08] LABS: COVID19 -Nasal RAPID Negative (Negative)
[2022-04-30] MEDS: NITROGLYCERIN 0.4 MG SL TAB SL ×2 (23:08→23:23)
[2022-04-30] MEDS: ONDANSETRON 4 MG/2 ML INJ IV (23:08)
[2022-04-30 23:18] LABS: Prothrombin Time 11.5 SECONDS (10.1-12.7)
[2022-04-30 23:21] LABS: PTT Partial Thromboplastin Tim 33 SECONDS (26.4-36.2)
[2022-04-30 23:32] LABS: NT-proBNP (BNP-Adult 18+) 88 pg/mL (<125)
--- NOTE | 2022-04-30 23:39 | PC.NURSE ---
Pt reports her chest pain has migrated to her left chest with associated palpitations and shortness of breath that started after the second dose of SL nitro. Provider notified, EKG ordered and RT contacted for EKG.
[2022-05-01] VITALS (43 sets, daily range): BP systolic 102–145; BP diastolic 55–77; PULSE 61–84; RESP 18–29; O2SAT 90–96
[2022-05-01 00:22] LABS: Troponin I 0.151 ng/mL (0.01-0.034)
[2022-05-01] MEDS: HEPARIN 5,000 UNIT/ML VIAL 5000 UNIT IV (00:40)
[2022-05-01] MEDS: HEPARIN DRIP 25,000 UNIT/500 ML IV.SOLN 20 UNIT IV (00:40)
[2022-05-01] MEDS: ATORVASTATIN 20 MG TABLET 80 MG PO (00:59)
[2022-05-01] MEDS: NITROGLYCERIN 50 MG/250 ML INFUS..BTL IV (01:00)
--- NOTE | 2022-05-01 02:25 | PC.NURSE ---
Pt violently dry heaving. Pt to be ordered medications from provider.
[2022-05-01] MEDS: diazePAM 10 MG/2 ML SYRINGE 2 MG IV (02:33)
--- NOTE | 2022-05-01 06:59 | PC.NURSE ---
Pt PTT >400 reported from lab to this RN. Redraw ordered for confirmation, but heparin drip paused in the meantime per Heparin guidelines.
[2022-05-01 07:00] LABS: PTT Partial Thromboplastin Tim > 400 SECONDS (26.4-36.2)
[2022-05-01 07:01] LABS: Troponin I 0.818 ng/mL (0.01-0.034)
[2022-05-01] MEDS: ONDANSETRON 4 MG/2 ML INJ IV (07:59)
[2022-05-01] MEDS: PANTOPRAZOLE 40 MG VIAL IV (07:59)
[2022-05-01 08:06] LABS: PTT Partial Thromboplastin Tim 91 SECONDS (26.4-36.2)
--- NOTE | 2022-05-01 10:18 | PC.NURSE ---
Spoke with Tristan in the cath lab nurse at [facility] [phone]. Gave report. medical laboratory technologist aware pt could be a ship & return. Will not d/c pt from ED until certain of pt status. Pt left [facility] @ 1000. Gave report to Vincenzo JAUREGUI as well w/ [facility].
== END 2022-05-01 10:30 | disposition short-term general hospital (02) ==
PROVIDERS: Emergency Medicine; Emergency Provider Emergency Medicine; PCP Family Medicine
DX: I21.4 Non-ST elevation (NSTEMI) myocardial infarction (principal); Z20.822 Contact with and (suspected) exposure to COVID-19
CPT/HCPCS: 36415; 71045; 80053; 82550; 82962; 83690; 83735; 83880; 84484; 85025; 85610; 85730; 87635; 93005; 93010; 96365; 96366; 96368; 96375; 96376; 99284; 99291; C9803; C9113; J1644; J2405; J3360

== ENCOUNTER 2022-05-21 12:29 | Emergency (ER) | payer MEDICARE, OTHER, SELFPAY ==
[2018-03-28 19:57] VITALS: BMI 64.0
[2022-05-21] VITALS (10 sets, daily range): BP systolic 131–188; BP diastolic 71–88; PULSE 61–76; RESP 19–27; TEMP 36.9; O2SAT 94–97; BMI 55.1
--- NOTE | 2022-05-21 12:51 | DI.US.S_ITS ---
PROCEDURE: [facility] LOW EXTREM RT INDICATIONS: right leg bruising s/p 4 cardiac stents 2 weeks ago, thinner TECHNIQUE: Real-time imaging, as well as color and pulse Doppler interrogation, were performed of the lower extremity deep veins from the inguinal ligament to the popliteal fossa. COMPARISON: [facility], , [facility] VENOUS LOW EXTREM LT, 08/15/2021, 10:15. FINDINGS: The common femoral, femoral and popliteal veins are normally compressible, and free of intraluminal thrombus. Color and pulse Doppler demonstrate normal phasic intraluminal flow. There is normal augmentation response to distal compression maneuver. The area of clinical bruising is imaged. At this site, there is a 9 x 5 x 6 mm focus seen, which may represent a small hematoma. No abnormal vascularity can be seen. IMPRESSION: Negative for deep venous thrombosis. Likely 9 mm hematoma seen at the area of clinical bruising. Dictated by: Ryder Knapp M.D. on 05/21/2022 at 13:54 Approved by: Ryder Knapp M.D. on 05/21/2022 at 13:55
--- NOTE | 2022-05-21 12:53 | ED.EXTPRO ---
HPI - Extremity Problem <Tammy Rene [facility] - Last Filed: 05/21/22 16:35> General Chief complaint: Extremity Problem,Nontraumatic Stated complaint: Thinks blood clot in leg, Phys ref Time Seen by Provider: 05/21/22 12:32 History of Present Illness HPI Narrative: This is this is a 71-year-old female with history of diabetes type 2, total right knee arthroplasty, hypertension, obesity and hyperlipidemia who is status post NSTEMI on April 30, 2022 and she was transferred to [facility] where she four coronary stents placed with a right right radial approach with Dr. Guerrero at [facility] on May 07, 2022. Patient presents to the emergency department today for right medial knee pain which started on 05/16/2022 following her procedure and she states that she has been feeling well overall since this incident, she endorses some lightheadedness especially when changing positions from sitting to standing, states that she feels mildly fatigued but denies any recent fever, nausea vomiting, chest pain, shortness of breath, dysuria, abdominal pain back pain, or sensation changes in her lower extremities. She states that she has a large bruise around this, complains of some proximal tenderness medially, some surrounding tenderness and endorses calf tenderness with pressure. She denies any recent fever or symptoms of illness. She is currently anticoagulated on Plavix and takes aspirin daily. She denies any known trauma, states that she is still ambulatory just has tenderness on the medial aspect. Related Data Previous Rx's Medication Instructions Recorded meclizine 12.5 mg tablet 25 mg PO Q6HR PRN Vertigo #120 tabs 03/30/18 acetaminophen 300 mg-codeine 30 mg 1 tab PO Q6H PRN pain #14 tabs 06/19/21 tablet ondansetron HCl 4 mg tablet 4 mg PO Q6H PRN nausea and 06/19/21 (Zofran) vomiting #14 tabs Allergies Allergy/AdvReac Type Severity Reaction Status Date / Time adhesive [ADHESIVE] Allergy Severe RASH Verified 05/21/22 13:00 PAPER/SILK TAPE OK aspartame [ASPARTAME] Allergy Severe COMA Verified 05/21/22 13:00 iodine [IODINE] Allergy Severe SOB, RASH Verified 05/21/22 13:00 latex [LATEX] Allergy Severe RASH Verified 05/21/22 13:00 Sulfa (Sulfonamide Allergy Severe RASH Verified 05/21/22 13:00 Antibiotics) [SULFA (SULFONAMIDE ANTIBIOTICS)] codeine [CODEINE] AdvReac Severe PROJECTILE Verified 05/21/22 13:00 VOMITING hydrocodone [HYDROCODONE] AdvReac Severe PROJECTILE Verified 05/21/22 13:00 VOMITING oxycodone [From OXYCONTIN] AdvReac Severe PROJECTILE Verified 05/21/22 13:00 VOMITING Review of Systems <OTTO Rios - Last Filed: 05/21/22 16:35> Review of Systems Narrative: General: denies fever, chills, malaise, sweats, fatigue Head/Neck: denies headache, neck pain, dizziness, endorses lightheadedness with postural changes Eyes: denies visual changes, eye pain Cardio: denies chest pain, palpitations, edema Respiratory: denies dyspnea, cough, orthopnea GI: denies abdominal pain, nausea, vomiting, or diarrhea : denies dysuria, hematuria, urinary retention, frequency or incontinence MSK: denies joint pain, muscle weakness, endorses history of right total knee arthroscopy, medial knee is tender to palpation, surrounded by bruising, endorses calf pain with palpation, denies any significant edema in her lower extremities or unilateral swelling. Skin: denies rash, itching, skin lesions or other Neuro: denies numbness, tingling Patient History <OTTO Rios - Last Filed: 05/21/22 16:35> Medical History (Updated 05/21/22 @ 14:18 by OTTO Rios) Diabetes Social History household members: none Smoking Status: Never smoker alcohol intake: never Smoking Status: Never smoker alcohol intake frequency: holidays/special occasions only Substance Use Type: does not use Exam <OTTO Rios - Last Filed: 05/21/22 16:35> Narrative Exam Narrative: Independently reviewed vitals signs and nursing notes. General: cooperative, comfortable, in no acute distress, well groomed, obese Head: atraumatic, symmetrical facial expressions Neck: supple Eyes: equal round and reactive, EOMI, conjunctiva normal Nose: nares patent, no rhinorrhea Mouth/Throat: moist mucus membranes Cardiovascular: regular rate and rhythm, no peripheral edema, warm extremities Respiratory: normal effort, able to speak in complete sentences, no audible wheezing, stridor, or rales. No retractions or tachypnea. GI: abdomen soft, nontender to palpation, nondistended, no masses, no exquisite tenderness with exam, without guarding or rebound. MSK: moves all extremities, neurovascularly intact, no weakness, normal tone Skin: brisk capillary refill, no rash, no erythema, right knee with ecchymosis around the medial aspect, tender to palpation, no erythema, no fluctuance, no range of motion deficit or sensation changes. No peripheral edema distally, mild calf pain with palpation Neuro: normal speech and cognition, A&O x3 Psych: mental status is grossly normal, congruent mood, normal affect, pleasant and cooperative Initial Vital Signs Initial Vital Signs: Vital Signs Temperature 98.5 F 05/21/22 12:30 Pulse Rate 76 05/21/22 12:30 Respiratory Rate 22 05/21/22 12:30 Blood Pressure 188/88 H 05/21/22 12:30 Pulse Oximetry 97 05/21/22 12:30 Oxygen Delivery Method 05/21/22 12:30 <Sanjay Mustafa MD - Last Filed: 05/27/22 04:04> Initial Vital Signs Initial Vital Signs: Vital Signs Temperature 98.5 F 05/21/22 12:30 Pulse Rate 76 05/21/22 12:30 Respiratory Rate 22 05/21/22 12:30 Blood Pressure 188/88 H 05/21/22 12:30 Pulse Oximetry 97 05/21/22 12:30 Oxygen Delivery Method 05/21/22 12:30 Scores <OTTO Rios - Last Filed: 05/21/22 16:35> Wells' Criteria for DVT Active Cancer (Treatment within 6 months): No Bedridden recently >3 days or major surgery within 4 weeks: Yes Calf Swelling >3cm compared to other leg: No Collateral (nonvericose) superficial veins present: No Entire leg swollen: No Localized tenderness along the deep vein system: No Pitting edema, confined to symtomatic leg: No Paralysis, paresis, or recent plaster immobilization of ext: No Previously documented DVT: No Alternative dx to DVT as likely or more likely: Yes Wells' criteria for DVT: -1 <Sanjay Mustafa MD - Last Filed: 05/27/22 04:04> Wells' Criteria for DVT Wells' criteria for DVT: -1 Course <OTTO Rios - Last Filed: 05/21/22 16:35> Orders Ordered: Discontinued Medications Magnesium Sulfate (Magnesium Sulfate) 2 gm in 50 mls @ 50 mls/hr IV NOW ONE Stop: 05/21/22 14:57 Last Infusion: 05/21/22 15:57 Dose: 0 mls/hr Documented By: LEXI Co-signed By: RAMON Admin: 05/21/22 14:33 Dose: 50 mls/hr Documented By: FLEX Co-signed By: DIANA Vital Signs Vital signs: Vital Signs - 8 hr 05/21/22 12:30 05/21/22 12:35 05/21/22 12:35 Temperature 98.5 F Pulse Rate 76 76 Respiratory Rate 22 Blood Pressure 188/88 H 188/88 H Pulse Oximetry 97 96 Oxygen Delivery Method Room Air 05/21/22 13:00 05/21/22 13:01 05/21/22 13:01 Temperature Pulse Rate 71 72 Respiratory Rate 27 H 25 H Blood Pressure 131/75 Pulse Oximetry 96 96 Oxygen Delivery Method 05/21/22 13:30 05/21/22 13:30 05/21/22 14:00 Temperature Pulse Rate 62 65 Respiratory Rate 23 20 Blood Pressure 137/71 Pulse Oximetry 96 94 Oxygen Delivery Method 05/21/22 14:01 05/21/22 14:01 05/21/22 14:30 Temperature Pulse Rate 61 Respiratory Rate 19 Blood Pressure 138/71 139/76 Pulse Oximetry 95 Oxygen Delivery Method 05/21/22 14:30 05/21/22 15:00 05/21/22 15:00 Temperature Pulse Rate 69 69 Respiratory Rate 23 22 Blood Pressure 133/73 Pulse Oximetry 96 96 Oxygen Delivery Method 05/21/22 15:30 05/21/22 15:30 Temperature Pulse Rate 64 Respiratory Rate 19 Blood Pressure 143/79 H Pulse Oximetry 95 Oxygen Delivery Method <Sanjay Mustafa MD - Last Filed: 05/27/22 04:04> Orders Ordered: Discontinued Medications Magnesium Sulfate (Magnesium Sulfate) 2 gm in 50 mls @ 50 mls/hr IV NOW ONE Stop: 05/21/22 14:57 Last Infusion: 05/21/22 15:57 Dose: 0 mls/hr Documented By: LEXI Co-signed By: RAMON Admin: 05/21/22 14:33 Dose: 50 mls/hr Documented By: FLEX Co-signed By: DIANA Vital Signs Vital signs: Vital Signs - 8 hr 05/21/22 12:30 05/21/22 12:35 05/21/22 12:35 Temperature 98.5 F Pulse Rate 76 76 Respiratory Rate 22 Blood Pressure 188/88 H 188/88 H Pulse Oximetry 97 96 Oxygen Delivery Method Room Air 05/21/22 13:00 05/21/22 13:01 05/21/22 13:01 Temperature Pulse Rate 71 72 Respiratory Rate 27 H 25 H Blood Pressure 131/75 Pulse Oximetry 96 96 Oxygen Delivery Method 05/21/22 13:30 05/21/22 13:30 05/21/22 14:00 Temperature Pulse Rate 62 65 Respiratory Rate 23 20 Blood Pressure 137/71 Pulse Oximetry 96 94 Oxygen Delivery Method 05/21/22 14:01 05/21/22 14:01 05/21/22 14:30 Temperature Pulse Rate 61 Respiratory Rate 19 Blood Pressure 138/71 139/76 Pulse Oximetry 95 Oxygen Delivery Method 05/21/22 14:30 05/21/22 15:00 05/21/22 15:00 Temperature Pulse Rate 69 69 Respiratory Rate 23 22 Blood Pressure 133/73 Pulse Oximetry 96 96 Oxygen Delivery Method 05/21/22 15:30 05/21/22 15:30 Temperature Pulse Rate 64 Respiratory Rate 19 Blood Pressure 143/79 H Pulse Oximetry 95 Oxygen Delivery Method MDM - Extremity (Nontraumatic) <OTTO Rios - Last Filed: 05/21/22 16:35> Lab Data Result diagrams: 05/21/22 13:00 05/21/22 13:00 Labs: Lab Results 05/21/22 05/21/22 05/21/22 Range/Units 13:00 13:00 13:00 WBC 5.1 (4.5-11.0) X10^3/uL RBC 4.72 (4.0-5.2) X10^6/uL Hgb 14.3 (12.0-16.0) g/dL Hct 42.7 (36-46) % MCV 90.5 (80-100) fL MCH 30.4 (26-34) PG MCHC 33.6 (30-36) % RDW 13.9 (11.6-14.8) % Plt Count 233 (150-400) X10^3/uL Neut % (Auto) 68.1 (50-75) % Lymph % (Auto) 21.3 L (25-40) % Harney % (Auto) 7.4 (3-14) % Eos % (Auto) 3.0 (2-4) % Baso % (Auto) 0.2 (0-2) % Neut # (Auto) 3400 (0271-0211) /uL Lymph # (Auto) 1100 (9129-3373) /uL Harney # (Auto) 400 (0-900) /uL Eos # (Auto) 200 (0-450) /uL Baso # (Auto) 0 (0-100) /uL PT 12.3 (10.1-12.7) SECONDS INR 1.1 (0.9-1.3) D-Dimer 220 (<230) ng/mL Sodium 139 (137-145) mmol/L Potassium 4.2 (3.4-5.1) mmol/L Chloride 102 (98-107) mmol/L Carbon Dioxide 29 (22-32) mmol/L BUN 9 (7-17) mg/dL Creatinine 0.62 (0.52-1.04) mg/dL Estimated GFR > 60 (>60) mL/min BUN/Creatinine Ratio 14.5 (6-22) Glucose 113 H (80-110) mg/dL Calcium 9.4 (8.4-10.2) mg/dL Magnesium 1.5 L (1.6-2.3) mg/dL Total Bilirubin 0.5 (0.2-1.3) mg/dL AST 29 (14-36) IU/L ALT 16 (<35) IU/L Alkaline Phosphatase 84 (38-126) U/L Total Creatine Kinase 48 (30-135) U/L CK-MB (CK-2) TNP CK-MB (CK-2) Rel Index TNP Troponin I < 0.012 (0.01-0.034) ng/mL NT-Pro-B Natriuret Pep 355 H (<125) pg/mL Total Protein 8.0 (6.3-8.2) g/dL Albumin 3.9 (3.5-5.0) g/dL Globulin 4.1 (1.7-4.1) g/dL Albumin/Globulin Ratio 1.0 (1.0-2.8) Imaging Data US - DVT: Radiologist's Impression: PROCEDURE:? US PERIP VENOUS LOW EXTREM RT ? INDICATIONS:? right leg bruising s/p 4 cardiac stents 2 weeks ago, thinner ? TECHNIQUE:? Real-time imaging, as well as color and pulse Doppler interrogation, were performed of the lower extremity deep veins from the inguinal ligament to the popliteal fossa.? ? COMPARISON:? [facility], [facility] VENOUS LOW EXTREM LT, 08/15/2021, 10:15. ? FINDINGS:? The common femoral, femoral and popliteal veins are normally compressible, and free of intraluminal thrombus.? Color and pulse Doppler demonstrate normal phasic intraluminal flow.? There is normal augmentation response to distal compression maneuver. ? The area of clinical bruising is imaged.? At this site, there is a 9 x 5 x 6 mm focus seen, which may represent a small hematoma.? No abnormal vascularity can be seen. ? ? IMPRESSION:? ? Negative for deep venous thrombosis. ? Likely 9 mm hematoma seen at the area of clinical bruising.? ? Dictated by: Ryder Knapp M.D. on 05/21/2022 at 13:54 ? ? Approved by: Ryder Knapp M.D. on 05/21/2022 at 13:55 ? PROCEDURE:? US PERIPH VENOUS LOW EXTREM RT ? INDICATIONS:? right leg bruising s/p 4 cardiac stents 2 weeks ago, thinner ? TECHNIQUE:? Real-time imaging, as well as color and pulse Doppler interrogation, were performed of the lower extremity deep veins from the inguinal ligament to the popliteal fossa.? ? COMPARISON:? [facility], [facility] VENOUS LOW EXTREM LT, 08/15/2021, 10:15. ? FINDINGS:? The common femoral, femoral and popliteal veins are normally compressible, and free of intraluminal thrombus.? Color and pulse Doppler demonstrate normal phasic intraluminal flow.? There is normal augmentation response to distal compression maneuver. ? ? The area of clinical bruising is imaged.? At this site, there is a 9 x 5 x 6 mm focus seen, which may represent a small hematoma.? No abnormal vascularity can be seen. ? ? IMPRESSION:? ? Negative for deep venous thrombosis. ? Likely 9 mm hematoma seen at the area of clinical bruising.? ? Dictated by: Ryder Knapp M.D. on 05/21/2022 at 13:54 ? ? Approved by: Ryder Knapp M.D. on 05/21/2022 at 13:55 ? MDM Narrative Medical decision making narrative: This is a 71-year-old female who presents to the emergency department complaining of medial right knee pain which is surrounded by ecchymosis following for coronary stents placed on 05/07/2022 with a radial approach, is currently anticoagulated on Plavix, history of diabetes, and hypertension. Her right knee has ecchymosis surrounding the medial aspect, palpable small lump less than 1 cm but no fluctuance, no surrounding erythema or dependent edema or ascending erythema. Patient's D-dimer is 220 and is not clinically significant, no leukocytosis or anemia, INR is 1.1 and no electrolyte abnormalities, her BNP is mildly elevated compared to her prior of 88 at 355. Her troponin was negative and patient denies any shortness of breath, palpitations, orthopnea, or shortness of breath with exertion. This is most likely a spontaneous hemorrhage or could be post injury while on anticoagulants but this is most likely not acute and is resolving due to the ecchymosis surrounding. Her peripheral venous Doppler ultrasound is negative for DVT but does show a 9 mm hematoma seen at the area of clinical ecchymosis. Encourage patient to follow-up with her PCP, alternate between warm and cool compresses, to stay lightly active but nothing significantly exertional. Encouraged to use topical Voltaren gel, but this will likely take time to reabsorb. Encourage patient to return to the emergency department if she develops numbness or tingling, worsening swelling, bruising that is getting larger and spreading, or worsening pain. Patient states understanding and will follow-up with outpatient providers as recommended. Her magnesium level was 1.5, it was replaced in the emergency department today with 2 g of IV magnesium sulfate. No other significant findings were on her lab work today. Patient is appropriate and amenable to discharge home. Vital signs are stable on repeat examination is unremarkable. Patient has been informed of results. Patient has been given strict return to ER precautions for any new or worsening symptoms. Patient understands to follow up closely with outpatient providers as instructed. Patient understands plan and agrees to discharge home. All questions and concerns answered at this time. <Sanjay Mustafa MD - Last Filed: 05/27/22 04:04> Lab Data Labs: Lab Results 05/21/22 05/21/22 05/21/22 Range/Units 13:00 13:00 13:00 WBC 5.1 (4.5-11.0) X10^3/uL RBC 4.72 (4.0-5.2) X10^6/uL Hgb 14.3 (12.0-16.0) g/dL Hct 42.7 (36-46) % MCV 90.5 (80-100) fL MCH 30.4 (26-34) PG MCHC 33.6 (30-36) % RDW 13.9 (11.6-14.8) % Plt Count 233 (150-400) X10^3/uL Neut % (Auto) 68.1 (50-75) % Lymph % (Auto) 21.3 L (25-40) % Harney % (Auto) 7.4 (3-14) % Eos % (Auto) 3.0 (2-4) % Baso % (Auto) 0.2 (0-2) % Neut # (Auto) 3400 (2559-5931) /uL Lymph # (Auto) 1100 (8349-8621) /uL Harney # (Auto) 400 (0-900) /uL Eos # (Auto) 200 (0-450) /uL Baso # (Auto) 0 (0-100) /uL PT 12.3 (10.1-12.7) SECONDS INR 1.1 (0.9-1.3) D-Dimer 220 (<230) ng/mL Sodium 139 (137-145) mmol/L Potassium 4.2 (3.4-5.1) mmol/L Chloride 102 (98-107) mmol/L Carbon Dioxide 29 (22-32) mmol/L BUN 9 (7-17) mg/dL Creatinine 0.62 (0.52-1.04) mg/dL Estimated GFR > 60 (>60) mL/min BUN/Creatinine Ratio 14.5 (6-22) Glucose 113 H (80-110) mg/dL Calcium 9.4 (8.4-10.2) mg/dL Magnesium 1.5 L (1.6-2.3) mg/dL Total Bilirubin 0.5 (0.2-1.3) mg/dL AST 29 (14-36) IU/L ALT 16 (<35) IU/L Alkaline Phosphatase 84 (38-126) U/L Total Creatine Kinase 48 (30-135) U/L CK-MB (CK-2) TNP CK-MB (CK-2) Rel Index TNP Troponin I < 0.012 (0.01-0.034) ng/mL NT-Pro-B Natriuret Pep 355 H (<125) pg/mL Total Protein 8.0 (6.3-8.2) g/dL Albumin 3.9 (3.5-5.0) g/dL Globulin 4.1 (1.7-4.1) g/dL Albumin/Globulin Ratio 1.0 (1.0-2.8) Discharge Plan Departure Patient Disposition: Home Clinical Impression: Hematoma, Elevated brain natriuretic peptide (BNP) level, Anticoagulant long-term use, Hypomagnesemia Instructions: DI for Hematoma (Bruise) Activity Restrictions/Additional Instructions: *You have been diagnosed with a small hematoma on the inside of your right knee. Please monitor this for any worsening. If it is getting larger or if you start having sensation changes in your lower extremity then please come back to the emergency department for another evaluation. If you develop a fever, redness, or start feeling poorly, please come back in for evaluation of infection as well. Please continue taking your medications as prescribed, follow-up with your regular doctor and process designer as scheduled. You can use topical Voltaren gel, alternate between cool and warm compresses to help this resolve sooner. Please avoid excessive activity but try to stay lightly active. Your magnesium level today was slightly low, this is an important electrolyte for your heart to function well, please discuss potentially supplementing your diet with magnesium oxide or other with your doctor. We have replaced her magnesium level today. Thank you for trusting us with your care, I hope you feel better soon. *What to do: *Please continue to take your regular medications as directed. [ ] New medication prescriptions sent to your pharmacy: [ ] [ ] New medication written as a paper prescription [x] No new medications given *Please follow up with your primary care provider in 2-3 days, call for an appointment. Let them know you were seen in the Emergency Department and that we asked that you be seen for follow-up. We will electronically transmit a record of today's note if your PCP is in our system *If you do not have a primary care provider please contact [phone] to establish care with one of the [facility] primary care providers. *Return to Emergency Department if you should have any new, worsening or concerning symptoms, such as [fever greater than 101F, chills, worsening pain, persistent vomiting or other bothersome symptoms] Prescriptions: No Action meclizine 12.5 mg Tablet 25 mg PO Q6HR PRN (Reason: Vertigo) Qty: 120 0RF ondansetron HCl [Zofran] 4 mg tablet 4 mg PO Q6H PRN (Reason: nausea and vomiting) Qty: 14 0RF acetaminophen-codeine 300-30 mg tablet 1 tab PO Q6H PRN (Reason: pain) Qty: 14 0RF Referrals: Ephraim Guerrero MD [Non-Staff] - Michelle Thomas MD [Primary Care Provider] - Visit Report Forms: Patient Portal/API <Sanjay Mustafa MD - Last Filed: 05/27/22 04:04> [facility] ED Attending Savi Attestation: I was immediately available in the department for consultation. ?This documentation has been reviewed and I agree with assessment and plan. Supervised by Sanjay Mustafa MD
[2022-05-21 13:09] LABS: Add Manual Diff / Slide Review NO; Basophils Absolute Auto 0 /uL (0-100); Basophils Percent Auto 0.2 % (0-2); Eosinophils Absolute Auto 200 /uL (0-450); Hematocrit 42.7 % (36-46); Hemoglobin 14.3 g/dL (12.0-16.0); Lymphocytes Absolute Auto 1100 /uL (1100-4500); Lymphocytes Percent Auto 21.3 % (25-40); Mean Corpuscular HGB Conc 33.6 % (30-36); Mean Corpuscular Hemoglobin 30.4 PG (26-34); Mean Corpuscular Volume 90.5 fL (80-100); Monocytes Absolute Auto 400 /uL (0-900); Monocytes Percent Auto 7.4 % (3-14); Neutrophils Absolute Auto 3400 /uL (1500-7000); Neutrophils Percent Auto 68.1 % (50-75); Platelet Count 233 X10^3/uL (150-400); Red Blood Cell Count 4.72 X10^6/uL (4.0-5.2); Red Cell Distribution Width 13.9 % (11.6-14.8); White Blood Cell Count 5.1 X10^3/uL (4.5-11.0)
[2022-05-21 13:17] LABS: INR 1.1 (0.9-1.3); Prothrombin Time 12.3 SECONDS (10.1-12.7)
[2022-05-21 13:20] LABS: D Dimer 220 ng/mL (<230)
[2022-05-21 13:22] LABS: Alanine Aminotransferase 16 IU/L (<35); Albumin 3.9 g/dL (3.5-5.0); Alkaline Phosphatase 84 U/L (38-126); Aspartate Aminotransferase 29 IU/L (14-36); BUN Creatinine Ratio 14.5 (6-22); Bilirubin Total 0.5 mg/dL (0.2-1.3); Blood Urea Nitrogen 9 mg/dL (7-17); Calcium 9.4 mg/dL (8.4-10.2); Carbon Dioxide 29 mmol/L (22-32); Chloride 102 mmol/L (98-107); Creatine Kinase 48 U/L (30-135); Estimated Glomerular Filt Rate > 60 mL/min (>60); Globulin 4.1 g/dL (1.7-4.1); Glucose 113 mg/dL (80-110); HEMOLYSIS < 15 (0-50); Magnesium 1.5 mg/dL (1.6-2.3); Potassium 4.2 mmol/L (3.4-5.1); Sodium 139 mmol/L (137-145)
[2022-05-21 13:33] LABS: NT-proBNP (BNP-Adult 18+) 355 pg/mL (<125); Troponin I < 0.012 ng/mL (0.01-0.034)
[2022-05-21] MEDS: MAGNESIUM SULFATE 2 GM/50 ML PIGGYBACK IV (14:33)
== END 2022-05-21 15:58 | disposition home or self-care (01) ==
PROVIDERS: Emergency Provider Nurse Practitioner Critical Care Medicine; PCP Internal Medicine
DX: S80.01XA Contusion of right knee, initial encounter (principal); E83.42 Hypomagnesemia; R79.89 Other specified abnormal findings of blood chemistry; Z79.01 Long term (current) use of anticoagulants; Z95.5 Presence of coronary angioplasty implant and graft; Z96.659 Presence of unspecified artificial knee joint
CPT/HCPCS: 36415; 80053; 82550; 83735; 83880; 84484; 85025; 85379; 85610; 93005; 93971; 96365; 99284; J3475

== ENCOUNTER 2022-07-30 08:30 | Outpatient (RCR) | payer MEDICARE, OTHER, SELFPAY ==
[2018-03-28 19:57] VITALS: BMI 64.0
== END 2022-07-30 10:30 ==
LOC: CAR 08:30
PROVIDERS: PCP Internal Medicine Cardiovascular Disease; Referring Provider Internal Medicine Cardiovascular Disease; Visit Provider Internal Medicine Cardiovascular Disease
DX: I21.4 Non-ST elevation (NSTEMI) myocardial infarction (principal)
CPT/HCPCS: 93798

== ENCOUNTER 2022-09-21 16:18 | Emergency (ER) | payer MEDICARE, OTHER, SELFPAY ==
[2018-03-28 19:57] VITALS: BMI 64.0
[2022-09-21 16:23] VITALS: BP 147/75; PULSE 80; RESP 18; TEMP 36.3; O2SAT 97; BMI 55.3
--- NOTE | 2022-09-21 16:27 | DI.RAD.S_ITS ---
PROCEDURE: XR CHEST 1V INDICATIONS: Shortness of breath TECHNIQUE: One view of the chest was acquired. COMPARISON: [facility], , XR CHEST 1V, 04/30/2022, 22:27. FINDINGS: Surgical changes and devices: A vascular coil can be seen involving the left neck, which has been placed since the prior examination. Lungs and pleura: On this semiupright portable chest examination, no large pneumothorax or large pleural effusions are seen. No focal infiltrates are seen. Mediastinum: The cardiac contours are mildly enlarged. The aorta demonstrates calcification and tortuosity. Bones and chest wall: No suspicious bony lesions. Overlying soft tissues appear unremarkable. IMPRESSION: No acute cardiopulmonary process is seen. Postoperative and degenerative changes are seen. Dictated by: Ryder Knapp M.D. on 09/21/2022 at 16:21 Approved by: Ryder Knapp M.D. on 09/21/2022 at 16:22
[2022-09-21 17:24] LABS: Add Manual Diff / Slide Review NO; Basophils Absolute Auto 100 /uL (0-100); Basophils Percent Auto 1.1 % (0-2); Eosinophils Absolute Auto 200 /uL (0-450); Eosinophils Percent Auto 3.9 % (2-4); Hematocrit 40.4 % (36-46); Hemoglobin 13.6 g/dL (12.0-16.0); Lymphocytes Absolute Auto 1600 /uL (1100-4500); Lymphocytes Percent Auto 33.7 % (25-40); Mean Corpuscular HGB Conc 33.6 % (30-36); Mean Corpuscular Hemoglobin 30.3 PG (26-34); Mean Corpuscular Volume 90.2 fL (80-100); Monocytes Absolute Auto 300 /uL (0-900); Monocytes Percent Auto 6.8 % (3-14); Neutrophils Absolute Auto 2700 /uL (1500-7000); Neutrophils Percent Auto 54.5 % (50-75); Platelet Count 202 X10^3/uL (150-400); Red Blood Cell Count 4.48 X10^6/uL (4.0-5.2); Red Cell Distribution Width 13.1 % (11.6-14.8); White Blood Cell Count 4.9 X10^3/uL (4.5-11.0)
[2022-09-21 17:27] LABS: INR 1.1 (0.9-1.3); Prothrombin Time 12.5 SECONDS (10.1-12.7)
[2022-09-21 17:29] LABS: Alanine Aminotransferase 17 IU/L (<35); Albumin 3.9 g/dL (3.5-5.0); Alkaline Phosphatase 84 U/L (38-126); Aspartate Aminotransferase 27 IU/L (14-36); BUN Creatinine Ratio 23.3 (6-22); Bilirubin Total 0.5 mg/dL (0.2-1.3); Blood Urea Nitrogen 14 mg/dL (7-17); Calcium 8.6 mg/dL (8.4-10.2); Carbon Dioxide 31 mmol/L (22-32); Chloride 101 mmol/L (98-107); Estimated Glomerular Filt Rate > 60 mL/min (>60); Globulin 3.9 g/dL (1.7-4.1); Glucose 127 mg/dL (80-110); HEMOLYSIS < 15 (0-50); Potassium 3.8 mmol/L (3.4-5.1); Sodium 138 mmol/L (137-145); Total Protein 7.8 g/dL (6.3-8.2)
[2022-09-21 17:41] LABS: NT-proBNP (BNP-Adult 18+) 85 pg/mL (<125); Troponin I < 0.012 ng/mL (0.01-0.034)
[2022-09-21 17:56] LABS: Influenza A - CEPHEID Flu A NEGATIVE (NEGATIVE); Influenza B - CEPHEID Flu B NEGATIVE (NEGATIVE); Respiratory Syncytial Virus Negative (Negative)
[2022-09-21 17:57] LABS: COVID-19 CEPHEID 4-PLEX PCR Negative (Negative)
--- NOTE | 2022-09-21 18:09 | ED_ITS ---
HPI - SOB/Dyspnea General Chief Complaint: Shortness of Breath/Dyspnea Stated Complaint: Cough, Wheezing, SOB, hx stents (4) Time Seen by Provider: 09/21/22 17:56 Source: patient Mode of arrival: Ambulatory History of Present Illness HPI Narrative: Patient is a 72-year-old female history of coronary artery disease, diabetes, hypertension hyperlipidemia all presenting today with body aches and cough. She really has not been feeling well for the last couple days. She thinks she has been wheezing. She feels little short of breath both at rest and with exertion. She denies any orthopnea. No peripheral edema. Minimal chest pain. She recently had 4 stents placed 04/30/2022 in [place]. She currently denies any chest pain. She has no history of COPD or congestive heart failure. She is currently afebrile. She was just worried and wanted to come in. But overall appears well. Related Data Previous Rx's Medication Instructions Recorded meclizine 12.5 mg tablet 25 mg PO Q6HR PRN Vertigo #120 tabs 03/30/18 acetaminophen 300 mg-codeine 30 mg 1 tab PO Q6H PRN pain #14 tabs 06/19/21 tablet ondansetron HCl 4 mg tablet 4 mg PO Q6H PRN nausea and 06/19/21 (Zofran) vomiting #14 tabs Allergies Allergy/AdvReac Type Severity Reaction Status Date / Time adhesive [ADHESIVE] Allergy Severe RASH Verified 05/21/22 13:00 PAPER/SILK TAPE OK aspartame [ASPARTAME] Allergy Severe COMA Verified 05/21/22 13:00 iodine [IODINE] Allergy Severe SOB, RASH Verified 05/21/22 13:00 latex [LATEX] Allergy Severe RASH Verified 05/21/22 13:00 Sulfa (Sulfonamide Allergy Severe RASH Verified 05/21/22 13:00 Antibiotics) [SULFA (SULFONAMIDE ANTIBIOTICS)] codeine [CODEINE] AdvReac Severe PROJECTILE Verified 05/21/22 13:00 VOMITING hydrocodone [HYDROCODONE] AdvReac Severe PROJECTILE Verified 05/21/22 13:00 VOMITING oxycodone [From OXYCONTIN] AdvReac Severe PROJECTILE Verified 05/21/22 13:00 VOMITING Review of Systems Review of Systems Narrative: GENERAL: Denies chills, fatigue, malaise, fever, sweats, travel HEENT: Denies sinus pain, ear pain, sore throat, difficulty swallowing, neck pain RESPIRATORY: Denies dyspnea, cough, wheezing, hemoptysis, sputum. CARDIOVASCULAR: Denies chest pain, palpitations, orthopnea, edema GASTROINTESTINAL: Denies nausea, vomiting, abdominal pain, diarrhea, constipation, melena. : Denies dysuria, frequency, incontinence, hematuria, urinary retention, flank pain. MUSCULOSKELETAL: Denies weakness, joint pain, or bony pain SKIN: No rash, no erythema, no pruritus NEUROLOGIC: Denies weakness, dizziness, headache, numbness, change in speech, confusion PSYCHIATRIC: No concerning psychosocial issues. 12 point review of systems is negative except for those stated above and HPI Patient History Medical History (Updated 09/21/22 @ 19:10 by Elinor Conner DO) Diabetes Social History household members: none Smoking Status: Never smoker alcohol intake: never Smoking Status: Never smoker alcohol intake frequency: holidays/special occasions only Substance Use Type: does not use Exam Initial Vital Signs Initial Vital Signs: Vital Signs Temperature 97.3 F L 09/21/22 16:23 Pulse Rate 80 09/21/22 16:23 Respiratory Rate 18 09/21/22 16:23 Blood Pressure 147/75 H 09/21/22 16:23 Pulse Oximetry 97 09/21/22 16:23 Oxygen Delivery Method 09/21/22 16:23 Course Orders Ordered: Discontinued Medications Albuterol (Albuterol Hfa Prepack) 1 box MISC SEEINSTR ONE Stop: 09/21/22 19:11 Last Admin: 09/21/22 19:30 Dose: 1 box Documented By: GIOVANI Sodium Chloride (Normal Saline 0.9%) 1,000 mls @ 1,000 mls/hr IV BOLUS ONE Stop: 09/21/22 19:57 Last Admin: 09/21/22 19:32 Dose: Not Given Documented By: ENMANUEL Ketorolac Tromethamine (Ketorolac 30 Mg/Ml Vial) 15 mg IV NOW ONE Stop: 09/21/22 18:59 Last Admin: 09/21/22 19:31 Dose: Not Given Documented By: ENMANUEL Ondansetron HCl (Ondansetron 4 Mg/2 Ml Inj) 4 mg IV NOW ONE Stop: 09/21/22 18:59 Last Admin: 09/21/22 19:31 Dose: Not Given Documented By: ENMANUEL Vital Signs Vital signs: Vital Signs - 8 hr 09/21/22 16:23 09/21/22 18:47 Temperature 97.3 F L 98.3 F Pulse Rate 80 71 Respiratory Rate 18 Blood Pressure 147/75 H 147/67 H Pulse Oximetry 97 96 Oxygen Delivery Method Room Air Room Air MDM - SOB/Dyspnea Lab Data Result diagrams: 09/21/22 17:00 09/21/22 17:00 Labs: Lab Results 09/21/22 09/21/22 09/21/22 Range/Units 16:30 17:00 17:00 WBC 4.9 (4.5-11.0) X10^3/uL RBC 4.48 (4.0-5.2) X10^6/uL Hgb 13.6 (12.0-16.0) g/dL Hct 40.4 (36-46) % MCV 90.2 (80-100) fL MCH 30.3 (26-34) PG MCHC 33.6 (30-36) % RDW 13.1 (11.6-14.8) % Plt Count 202 (150-400) X10^3/uL Neut % (Auto) 54.5 (50-75) % Lymph % (Auto) 33.7 (25-40) % [place] % (Auto) 6.8 (3-14) % Eos % (Auto) 3.9 (2-4) % Baso % (Auto) 1.1 (0-2) % Neut # (Auto) 2700 (2555-3781) /uL Lymph # (Auto) 1600 (1598-3137) /uL [place] # (Auto) 300 (0-900) /uL Eos # (Auto) 200 (0-450) /uL Baso # (Auto) 100 (0-100) /uL PT 12.5 (10.1-12.7) SECONDS INR 1.1 (0.9-1.3) Sodium (137-145) mmol/L Potassium (3.4-5.1) mmol/L Chloride (98-107) mmol/L Carbon Dioxide (22-32) mmol/L BUN (7-17) mg/dL Creatinine (0.52-1.04) mg/dL Estimated GFR (>60) mL/min BUN/Creatinine Ratio (6-22) Glucose (80-110) mg/dL Lactate (0.7-2.1) mmol/L Calcium (8.4-10.2) mg/dL Total Bilirubin (0.2-1.3) mg/dL AST (14-36) IU/L ALT (<35) IU/L Alkaline Phosphatase (38-126) U/L Troponin I (0.01-0.034) ng/mL NT-Pro-B Natriuret Pep (<125) pg/mL Total Protein (6.3-8.2) g/dL Albumin (3.5-5.0) g/dL Globulin (1.7-4.1) g/dL Albumin/Globulin Ratio (1.0-2.8) SARS-CoV-2 (PCR) Negative (Negative) Influenza A (RT-PCR) Flu a negative (NEGATIVE) Influenza B (RT-PCR) Flu b negative (NEGATIVE) RSV (PCR) Negative (Negative) 09/21/22 09/21/22 Range/Units 17:00 17:00 WBC (4.5-11.0) X10^3/uL RBC (4.0-5.2) X10^6/uL Hgb (12.0-16.0) g/dL Hct (36-46) % MCV (80-100) fL MCH (26-34) PG MCHC (30-36) % RDW (11.6-14.8) % Plt Count (150-400) X10^3/uL Neut % (Auto) (50-75) % Lymph % (Auto) (25-40) % [place] % (Auto) (3-14) % Eos % (Auto) (2-4) % Baso % (Auto) (0-2) % Neut # (Auto) (8428-6291) /uL Lymph # (Auto) (5950-5954) /uL [place] # (Auto) (0-900) /uL Eos # (Auto) (0-450) /uL Baso # (Auto) (0-100) /uL PT (10.1-12.7) SECONDS INR (0.9-1.3) Sodium 138 (137-145) mmol/L Potassium 3.8 (3.4-5.1) mmol/L Chloride 101 (98-107) mmol/L Carbon Dioxide 31 (22-32) mmol/L BUN 14 (7-17) mg/dL Creatinine 0.60 (0.52-1.04) mg/dL Estimated GFR > 60 (>60) mL/min BUN/Creatinine Ratio 23.3 H (6-22) Glucose 127 H (80-110) mg/dL Lactate 1.0 (0.7-2.1) mmol/L Calcium 8.6 (8.4-10.2) mg/dL Total Bilirubin 0.5 (0.2-1.3) mg/dL AST 27 (14-36) IU/L ALT 17 (<35) IU/L Alkaline Phosphatase 84 (38-126) U/L Troponin I < 0.012 (0.01-0.034) ng/mL NT-Pro-B Natriuret Pep 85 (<125) pg/mL Total Protein 7.8 (6.3-8.2) g/dL Albumin 3.9 (3.5-5.0) g/dL Globulin 3.9 (1.7-4.1) g/dL Albumin/Globulin Ratio 1.0 (1.0-2.8) SARS-CoV-2 (PCR) (Negative) Influenza A (RT-PCR) (NEGATIVE) Influenza B (RT-PCR) (NEGATIVE) RSV (PCR) (Negative) Imaging Data Chest x-ray: Radiologist's Impression: XRay Report Signed Patient: Merle Chu MR#: [id number] : 1950 Acct:[id number] Age/Sex: 72 / F Date of Service: 09/21/22 Loc: ED Accession Number: [id number] ?? Procedure: XR chest 1V Ordering Provider: Bushra Mercado D.O. PROCEDURE:? XR CHEST 1V ? INDICATIONS:? Shortness of breath ? TECHNIQUE:? One view of the chest was acquired.? ? COMPARISON:? [facility], , XR CHEST 1V, 04/30/2022, 22:27. ? FINDINGS:? ? Surgical changes and devices:? A vascular coil can be seen involving the left neck, which has been placed since the prior examination. ? Lungs and pleura:? On this semiupright portable chest examination, no large pneumothorax or large pleural effusions are seen.? No focal infiltrates are seen.? ? Mediastinum:? The cardiac contours are mildly enlarged. The aorta demonstrates calcification and tortuosity. ? Bones and chest wall:? No suspicious bony lesions.? Overlying soft tissues appear unremarkable.? ? ? IMPRESSION:? ? No acute cardiopulmonary process is seen.? ? Postoperative and degenerative changes are seen.? ? ? Dictated by: Ryder Knapp M.D. on 09/21/2022 at 16:21 ? ? ECG Data Interpretation: Sinus rhythm rate sinus for pain interval 174 QRS is 88 QTC 444 T-wave inversion noted in lead 3 similar to previous EKG and May is with she no ST changes I do not MDM Narrative Medical decision making narrative: Patient has been having infectious like symptoms ongoing for the last 3 days. EKG is unremarkable. She really does not have any chest pain. She feels like she has wheezing, but actually on exam she has no wheezing and is in no respiratory distress. For past viral panel is negative still possible it is another virus. She overall is not septic or hypoxic. No significant leukocytosis. He is given is open oral inhaler to help if she needs it. At this time no need for antibiotics or further workup. Differential diagnosis includes acute coronary syndrome, angina, is viral syndrome, pneumonia Most likely infectious etiology based on symptoms. Less likely his cardiac, although it was considered Discharge Plan Departure Patient Disposition: Home Clinical Impression: Acute viral syndrome Instructions: DI for Viral Upper Respiratory Infection -- Adult Activity Restrictions/Additional Instructions: *You have been diagnosed with viral syndrome *What to do: At this time is is that he might have a virus. Her x-ray does not show pneumonia. You do not need antibiotics. He do not have COVID influenza or RSV at this time. Please continue to hydrate and take Tylenol or Motrin if need ed for pain or fever *Continue to take medications as directed Albuterol inhaler 1-2 puffs every 4 hours if needed for coughing or shortness of breath *Follow up with your primary care provider in 2-3 days or call [phone] *Return to ER if you should have increasing chest pain shortness of breath or any new, worsening or concerning symptoms Prescriptions: No Action meclizine 12.5 mg Tablet 25 mg PO Q6HR PRN (Reason: Vertigo) Qty: 120 0RF ondansetron HCl [Zofran] 4 mg tablet 4 mg PO Q6H PRN (Reason: nausea and vomiting) Qty: 14 0RF acetaminophen-codeine 300-30 mg tablet 1 tab PO Q6H PRN (Reason: pain) Qty: 14 0RF Referrals: Ephraim Guerrero MD [Primary Care Provider] - Visit Report Forms: Patient Portal/API
[2022-09-21 18:47] VITALS: BP 147/67; PULSE 71; TEMP 36.8; O2SAT 96
[2022-09-21 19:30] VITALS: O2SAT 98
[2022-09-21] MEDS: ALBUTEROL HFA PREPACK 1 BOX MISC (19:30)
== END 2022-09-21 19:53 | disposition home or self-care (01) ==
PROVIDERS: Emergency Medicine; Emergency Provider Emergency Medicine; PCP Internal Medicine Cardiovascular Disease
DX: B34.9 Viral infection, unspecified (principal); R06.02 Shortness of breath; R07.9 Chest pain, unspecified; Z20.822 Contact with and (suspected) exposure to COVID-19
CPT/HCPCS: 0241U; 36415; 71045; 80053; 83605; 83880; 84484; 85025; 85610; 93005; 93010; 99284

== ENCOUNTER 2022-10-22 17:49 | Emergency (ER) | payer MEDICARE, OTHER, SELFPAY ==
[2018-03-28 19:57] VITALS: BMI 64.0
[2022-10-22 18:07] VITALS: BP 178/91; PULSE 95; RESP 18; TEMP 36.9; O2SAT 98; BMI 55.3
--- NOTE | 2022-10-22 18:12 | DI.RAD.S_ITS ---
PROCEDURE: XR CHEST 1V INDICATIONS: suspected sepsis TECHNIQUE: One view of the chest was acquired. COMPARISON: [facility], CR, XR CHEST 1V, 04/30/2022, 22:27. [facility], CR, XR CHEST 1V, 09/21/2022, 16:58. FINDINGS: Surgical changes and devices: Cholecystectomy clips are seen. Lungs and pleura: An incomplete inspiratory result is noted, causing a crowded appearance to the lung markings. No focal infiltrates are seen. No pneumothorax or significant pleural effusions are seen. Mediastinum: Mediastinal contours appear normal. Heart size is normal. Bones and chest wall: No suspicious bony lesions. Age-appropriate bony degenerative changes are seen. Overlying soft tissues appear unremarkable. IMPRESSION: Low lung volumes, without focal infiltrates. Postoperative and degenerative changes are seen. Dictated by: Ryder Knapp M.D. on 10/22/2022 at 17:48 Approved by: Ryder Knapp M.D. on 10/22/2022 at 17:49
[2022-10-22 19:01] LABS: Influenza A - CEPHEID Flu A NEGATIVE (NEGATIVE); Influenza B - CEPHEID Flu B NEGATIVE (NEGATIVE); Respiratory Syncytial Virus Negative (Negative)
[2022-10-22 19:25] LABS: COVID-19 CEPHEID 4-PLEX PCR POSITIVE (Negative)
[2022-10-22] MEDS: SODIUM CHLORIDE 0.9% 1,000 ML 1000 ML IV (20:25)
[2022-10-22 20:27] LABS: Add Manual Diff / Slide Review NO; Basophils Absolute Auto 0 /uL (0-100); Basophils Percent Auto 0.8 % (0-2); Eosinophils Absolute Auto 0 /uL (0-450); Eosinophils Percent Auto 0.8 % (2-4); Hematocrit 42.8 % (36-46); Hemoglobin 14.3 g/dL (12.0-16.0); Lymphocytes Absolute Auto 500 /uL (1100-4500); Lymphocytes Percent Auto 13.3 % (25-40); Mean Corpuscular HGB Conc 33.3 % (30-36); Mean Corpuscular Hemoglobin 30.1 PG (26-34); Mean Corpuscular Volume 90.4 fL (80-100); Monocytes Absolute Auto 600 /uL (0-900); Monocytes Percent Auto 14.8 % (3-14); Neutrophils Absolute Auto 2900 /uL (1500-7000); Neutrophils Percent Auto 70.3 % (50-75); Platelet Count 183 X10^3/uL (150-400); Red Blood Cell Count 4.73 X10^6/uL (4.0-5.2); Red Cell Distribution Width 13.5 % (11.6-14.8); White Blood Cell Count 4.1 X10^3/uL (4.5-11.0)
--- NOTE | 2022-10-22 20:29 | ED_ITS ---
HPI - General Adult General Chief complaint: Fever Stated complaint: Cough, Fever Time Seen by Provider: 10/22/22 19:50 Source: patient Mode of arrival: Ambulatory Limitations: no limitations History of Present Illness HPI narrative: 3 weeks of a fever. At the beginning of this time she was tested for COVID and influenza was negative. She has also had a persistent cough. Symptoms have persisted over the past 3 weeks and actually worsening somewhat. She has been taking all of her medications as directed. She denies chest pain. Some shortness of breath. No GI symptoms. No skin rashes. Comes emergency d epartment today because of the continued symptoms. Related Data Previous Rx's Medication Instructions Recorded meclizine 12.5 mg tablet 25 mg PO Q6HR PRN Vertigo #120 tabs 03/30/18 acetaminophen 300 mg-codeine 30 mg 1 tab PO Q6H PRN pain #14 tabs 06/19/21 tablet ondansetron HCl 4 mg tablet 4 mg PO Q6H PRN nausea and 06/19/21 (Zofran) vomiting #14 tabs Allergies Allergy/AdvReac Type Severity Reaction Status Date / Time adhesive [ADHESIVE] Allergy Severe RASH Verified 05/21/22 13:00 PAPER/SILK TAPE OK aspartame [ASPARTAME] Allergy Severe COMA Verified 05/21/22 13:00 iodine [IODINE] Allergy Severe SOB, RASH Verified 05/21/22 13:00 latex [LATEX] Allergy Severe RASH Verified 05/21/22 13:00 Sulfa (Sulfonamide Allergy Severe RASH Verified 05/21/22 13:00 Antibiotics) [SULFA (SULFONAMIDE ANTIBIOTICS)] codeine [CODEINE] AdvReac Severe PROJECTILE Verified 05/21/22 13:00 VOMITING hydrocodone [HYDROCODONE] AdvReac Severe PROJECTILE Verified 05/21/22 13:00 VOMITING oxycodone [From OXYCONTIN] AdvReac Severe PROJECTILE Verified 05/21/22 13:00 VOMITING Review of Systems Constitutional Constitutional: Reports system reviewed and no additional complaints, except as documented ENT Ears, Nose, Mouth, and Throat: Reports system reviewed and no additional complaints, except as documented Cardiovascular Cardiovascular: Reports system reviewed and no additional complaints, except as documented Respiratory Respiratory: Reports system reviewed and no additional complaints, except as documented Gastrointestinal Gastrointestinal: Reports system reviewed and no additional complaints, except as documented Integumentary/Breasts Skin/Breast: Reports system reviewed and no additional complaints, except as documented Neurologic Neurologic: Reports system reviewed and no additional complaints, except as documented Hematologic/Lymphatic On Anticoagulants: No Patient History Medical History Diabetes Social History household members: none Smoking Status: Never smoker alcohol intake: never Smoking Status: Never smoker alcohol intake frequency: holidays/special occasions only Substance Use Type: does not use Exam Initial Vital Signs Initial Vital Signs: Vital Signs Temperature 98.5 F 10/22/22 18:07 Pulse Rate 95 H 10/22/22 18:07 Respiratory Rate 18 10/22/22 18:07 Blood Pressure 178/91 H 10/22/22 18:07 Pulse Oximetry 98 10/22/22 18:07 Oxygen Delivery Method 10/22/22 18:07 Const General: cooperative, healthy appearing and comfortable Limitations: mental status not altered HENMT Head: normal to inspection and normocephalic Chest Chest: normal inspection of the chest Resp Effort & Inspection: normal respiratory effort Auscultation: clear to auscultation bilaterally Cardio Rate: regular rate Rhythm: regular rhythm GI Inspection: normal to inspection Palpation: soft Back/Spine/Pelvis Back: normal to inspection Skin General: no rashes or lesions noted Neuro General: patient alert, patient awake, patient oriented x3 and moves all extremities Extrem General: capillary refill normal Psych Appearance: grossly normal and well kempt Course Orders Ordered: ED Orders 10/22/22 18:12 XR chest 1V Stat EKG-12 Lead Stat RT Consult Eval and Treat NOW 10/22/22 18:13 Covid-19 + FLU A/B + RSV - PCR Stat 10/22/22 20:14 Complete Blood Count AUTO DIFF Stat Comprehensive Metabolic Panel Stat Lipase Stat 10/22/22 20:24 Blood Culture Stat Discontinued Medications Sodium Chloride (Normal Saline 0.9%) 1,000 mls @ 1,000 mls/hr IV BOLUS ONE Stop: 10/22/22 19:11 Last Admin: 10/22/22 20:25 Dose: 1,000 mls/hr Documented By: RB Ondansetron HCl (Ondansetron 4 Mg/2 Ml Inj) 4 mg IV NOW PRN PRN Reason: Nausea And Vomiting Ondansetron HCl (Ondansetron 4 Mg Odt) 4 mg SL NOW PRN PRN Reason: Nausea And Vomiting Vital Signs Vital signs: Vital Signs - 8 hr 10/22/22 21:37 Pulse Rate 80 Respiratory Rate 24 Blood Pressure 194/94 H Pulse Oximetry 98 Oxygen Delivery Method Room Air Medical Decision Making Medical Records Medical records reviewed: Yes I reviewed the patient's medical records. Lab Data Lab results reviewed: Yes I reviewed the patient's lab results. Result diagrams: 10/22/22 20:14 10/22/22 20:14 Labs: Lab Results 10/22/22 10/22/22 10/22/22 Range/Units 18:13 20:14 20:14 WBC 4.1 L (4.5-11.0) X10^3/uL RBC 4.73 (4.0-5.2) X10^6/uL Hgb 14.3 (12.0-16.0) g/dL Hct 42.8 (36-46) % MCV 90.4 (80-100) fL MCH 30.1 (26-34) PG MCHC 33.3 (30-36) % RDW 13.5 (11.6-14.8) % Plt Count 183 (150-400) X10^3/uL Neut % (Auto) 70.3 (50-75) % Lymph % (Auto) 13.3 L (25-40) % [place] % (Auto) 14.8 H (3-14) % Eos % (Auto) 0.8 L (2-4) % Baso % (Auto) 0.8 (0-2) % Neut # (Auto) 2900 (7879-0228) /uL Lymph # (Auto) 500 L (3874-2349) /uL [place] # (Auto) 600 (0-900) /uL Eos # (Auto) 0 (0-450) /uL Baso # (Auto) 0 (0-100) /uL PT Cancelled INR Cancelled APTT Cancelled Sodium (137-145) mmol/L Potassium (3.4-5.1) mmol/L Chloride (98-107) mmol/L Carbon Dioxide (22-32) mmol/L BUN (7-17) mg/dL Creatinine (0.52-1.04) mg/dL Estimated GFR (>60) mL/min BUN/Creatinine Ratio (6-22) Glucose (80-110) mg/dL Lactate Calcium (8.4-10.2) mg/dL Total Bilirubin (0.2-1.3) mg/dL AST (14-36) IU/L ALT (<35) IU/L Alkaline Phosphatase (38-126) U/L Total Protein (6.3-8.2) g/dL Albumin (3.5-5.0) g/dL Globulin (1.7-4.1) g/dL Albumin/Globulin Ratio (1.0-2.8) Lipase (23-300) U/L Procalcitonin SARS-CoV-2 (PCR) Positive H (Negative) Influenza A (RT-PCR) Flu a negative (NEGATIVE) Influenza B (RT-PCR) Flu b negative (NEGATIVE) RSV (PCR) Negative (Negative) 10/22/22 10/22/22 Range/Units 20:14 20:14 WBC (4.5-11.0) X10^3/uL RBC (4.0-5.2) X10^6/uL Hgb (12.0-16.0) g/dL Hct (36-46) % MCV (80-100) fL MCH (26-34) PG MCHC (30-36) % RDW (11.6-14.8) % Plt Count (150-400) X10^3/uL Neut % (Auto) (50-75) % Lymph % (Auto) (25-40) % [place] % (Auto) (3-14) % Eos % (Auto) (2-4) % Baso % (Auto) (0-2) % Neut # (Auto) (2550-1960) /uL Lymph # (Auto) (2292-9751) /uL [place] # (Auto) (0-900) /uL Eos # (Auto) (0-450) /uL Baso # (Auto) (0-100) /uL PT INR APTT Sodium 136 L (137-145) mmol/L Potassium 3.5 (3.4-5.1) mmol/L Chloride 99 (98-107) mmol/L Carbon Dioxide 25 (22-32) mmol/L BUN 7 (7-17) mg/dL Creatinine 0.65 (0.52-1.04) mg/dL Estimated GFR > 60 (>60) mL/min BUN/Creatinine Ratio 10.8 (6-22) Glucose 115 H (80-110) mg/dL Lactate Cancelled Calcium 8.7 (8.4-10.2) mg/dL Total Bilirubin 0.5 (0.2-1.3) mg/dL AST 44 H (14-36) IU/L ALT 24 (<35) IU/L Alkaline Phosphatase 98 (38-126) U/L Total Protein 8.5 H (6.3-8.2) g/dL Albumin 4.1 (3.5-5.0) g/dL Globulin 4.4 H (1.7-4.1) g/dL Albumin/Globulin Ratio 0.9 L (1.0-2.8) Lipase 126 (23-300) U/L Procalcitonin Cancelled SARS-CoV-2 (PCR) (Negative) Influenza A (RT-PCR) (NEGATIVE) Influenza B (RT-PCR) (NEGATIVE) RSV (PCR) (Negative) Imaging Data Chest x-ray: Radiologist's Impression: [address] [address] XRay Report Signed Patient: Merle Chu MR#: [id number] : 1950 Acct:[id number] Age/Sex: 72 / F Date of Service: 10/22/22 Loc: Accession Number: [id number] ?? Procedure: XR chest 1V Ordering Provider: Baljit Nesbitt D.O. PROCEDURE:? XR CHEST 1V ? INDICATIONS:? suspected sepsis ? TECHNIQUE:? One view of the chest was acquired.? ? COMPARISON:? [facility], CR, XR CHEST 1V, 04/30/2022, 22:27.? [facility], , XR CHEST 1V, 09/21/2022, 16:58. ? FINDINGS:? ? Surgical changes and devices:? Cholecystectomy clips are seen.? ? Lungs and pleura:? An incomplete inspiratory result is noted, causing a crowded appearance to the lung markings.? No focal infiltrates are seen.? No pneumothorax or significant pleural effusions are seen. ? ? Mediastinum:? Mediastinal contours appear normal.? Heart size is normal.? ? Bones and chest wall:? No suspicious bony lesions.? Age-appropriate bony degenerative changes are seen.? Overlying soft tissues appear unremarkable.? ? ? IMPRESSION:? Low lung volumes, without focal infiltrates. ? Postoperative and degenerative changes are seen.? ? ? Dictated by: Ryder Knapp M.D. on 10/22/2022 at 17:48 ? ? Approved by: Ryder Knapp M.D. on 10/22/2022 at 17:49?? ECG Data Attestation: I personally reviewed and interpreted this ECG as follows: Interpretation: Sinus rhythm Ventricular rate 84 Left axis deviation LVH No ST T wave changes MDM Narrative Medical decision making narrative: Patient is COVID positive. Chest x-ray is unremarkable. Vital signs unremarkable. Labs are unremarkable. EKG shows no ischemic changes. She is nontoxic. Not hypoxic. No indication for antibiotics. Suspect that her symptoms are related to COVID. Will discharge patient home with strict return precautions. She was happy about being able to go home. She expressed understanding and agreement with plan. Discharge Plan Departure Patient Disposition: Home Clinical Impression: COVID-19 Instructions: COVID-19 Activity Restrictions/Additional Instructions: Please follow all current CDC guidelines with regard to quarantine given your COVID-19 status. You can take Tylenol for any fevers. Be sure to increase your fluid intake. Return to the emergency department for any new or worsening symptoms. Prescriptions: No Action meclizine 12.5 mg Tablet 25 mg PO Q6HR PRN (Reason: Vertigo) Qty: 120 0RF ondansetron HCl [Zofran] 4 mg tablet 4 mg PO Q6H PRN (Reason: nausea and vomiting) Qty: 14 0RF acetaminophen-codeine 300-30 mg tablet 1 tab PO Q6H PRN (Reason: pain) Qty: 14 0RF Referrals: Ephraim Guerrero MD [Primary Care Provider] - Stand Alone Forms: Patient Portal/API
[2022-10-22 20:44] LABS: Alanine Aminotransferase 24 IU/L (<35); Albumin 4.1 g/dL (3.5-5.0); Albumin Globulin Ratio 0.9 (1.0-2.8); Alkaline Phosphatase 98 U/L (38-126); Aspartate Aminotransferase 44 IU/L (14-36); BUN Creatinine Ratio 10.8 (6-22); Bilirubin Total 0.5 mg/dL (0.2-1.3); Blood Urea Nitrogen 7 mg/dL (7-17); Calcium 8.7 mg/dL (8.4-10.2); Carbon Dioxide 25 mmol/L (22-32); Chloride 99 mmol/L (98-107); Estimated Glomerular Filt Rate > 60 mL/min (>60); Globulin 4.4 g/dL (1.7-4.1); Glucose 115 mg/dL (80-110); HEMOLYSIS < 15 (0-50); Lipase 126 U/L (23-300); Potassium 3.5 mmol/L (3.4-5.1); Sodium 136 mmol/L (137-145); Total Protein 8.5 g/dL (6.3-8.2)
[2022-10-22 21:37] VITALS: BP 194/94; PULSE 80; RESP 24; O2SAT 98
== END 2022-10-22 21:50 | disposition home or self-care (01) ==
PROVIDERS: Emergency Provider Emergency Medicine; PCP Internal Medicine Cardiovascular Disease
DX: U07.1 COVID-19 (principal)
CPT/HCPCS: 0241U; 36415; 71045; 80053; 83690; 85025; 87040; 93005; 93010; 99284

== ENCOUNTER 2022-12-27 15:46 | Emergency (ER) | payer MEDICARE, OTHER, SELFPAY ==
[2018-03-28 19:57] VITALS: BMI 64.0
[2022-12-27 15:51] VITALS: BP 155/80; PULSE 71; RESP 16; TEMP 36.2; O2SAT 98; BMI 54.1
--- NOTE | 2022-12-27 16:06 | DI.RAD.S_ITS ---
PROCEDURE: XR KNEE 2V RIGHT INDICATIONS: knee pain, hx arthroplasty TECHNIQUE: 3 views of the knee were acquired. COMPARISON: None. FINDINGS: Bones: Degenerative changes of the right knee with severe medial joint space narrowing. There is subchondral sclerosis of the medial joint space. Soft tissues: No joint effusion. No suspicious soft tissue calcifications. IMPRESSION: Tricompartmental degenerative changes consistent with osteoarthritis with severe medial joint space narrowing. Dictated by: Devin Young M.D. on 12/27/2022 at 16:11 Approved by: Devin Young M.D. on 12/27/2022 at 16:13
--- NOTE | 2022-12-27 16:18 | ED_ITS ---
HPI - Extremity Injury (Lower) <Tammy Rene, [facility] - Last Filed: 12/27/22 18:00> General Chief Complaint: Extremity Injury, Lower Stated Complaint: Right knee pain, no trauma x1 week Time Seen by Provider: 12/27/22 16:04 History of Present Illness HPI Narrative: This is a 72-year-old female presents to the emergency department with worsening right knee pain. She states that she had an appointment to see Dr. Sarah Maher in April but unfortunately at that time she cardiac surgery requiring coronary stents. She states that she is now anticoagulated on Plavix. She has a history of, left total knee arthroplasty, vertigo but denies any recent illness other than COVID in October of 2022. She complains of 1 week of right knee pain on the medial aspect which has been worsening without recent injury. She denies weakness, numbness or tingling but stay that she feels like it is unstable. She denies lateral knee pain, posterior knee pain, or other pain at this time. She denies any open wounds. She states that all narcotics make her very nauseated and had projectile vomiting, she does not know if she is tried tramadol in the past. Related Data Previous Rx's Medication Instructions Recorded meclizine 12.5 mg tablet 25 mg PO Q6HR PRN Vertigo #120 tabs 03/30/18 acetaminophen 300 mg-codeine 30 mg 1 tab PO Q6H PRN pain #14 tabs 06/19/21 tablet ondansetron HCl 4 mg tablet 4 mg PO Q6H PRN nausea and 06/19/21 (Zofran) vomiting #14 tabs acetaminophen 325 mg tablet 975 mg PO Q6-8H PRN fever or pain 12/27/22 (Tylenol) #90 tabs diclofenac sodium 1 % topical gel 2 g topical QID PRN knee pain #100 12/27/22 (Arthritis Pain (diclofenac)) grams lidocaine HCl 4 % topical ointment 1 ea topical Q4HR PRN knee pain 12/27/22 (AsperFlex (lidocaine HCl)) #100 grams Allergies Allergy/AdvReac Type Severity Reaction Status Date / Time adhesive [ADHESIVE] Allergy Severe RASH Verified 05/21/22 13:00 PAPER/SILK TAPE OK aspartame [ASPARTAME] Allergy Severe COMA Verified 05/21/22 13:00 iodine [IODINE] Allergy Severe SOB, RASH Verified 05/21/22 13:00 latex [LATEX] Allergy Severe RASH Verified 05/21/22 13:00 Sulfa (Sulfonamide Allergy Severe RASH Verified 05/21/22 13:00 Antibiotics) [SULFA (SULFONAMIDE ANTIBIOTICS)] codeine [CODEINE] AdvReac Severe PROJECTILE Verified 05/21/22 13:00 VOMITING hydrocodone [HYDROCODONE] AdvReac Severe PROJECTILE Verified 05/21/22 13:00 VOMITING oxycodone [From OXYCONTIN] AdvReac Severe PROJECTILE Verified 05/21/22 13:00 VOMITING Review of Systems <OTTO Rios - Last Filed: 12/27/22 18:00> Review of Systems ROS Unobtainable: All systems reviewed & are unremarkable except as noted in HPI and below Patient History <OTTO Rios - Last Filed: 12/27/22 18:00> Medical History (Updated 12/27/22 @ 17:46 by OTTO Rios) Diabetes Social History household members: none Smoking Status: Never smoker alcohol intake: never Smoking Status: Never smoker alcohol intake frequency: holidays/special occasions only Substance Use Type: does not use Exam <OTTO Rios - Last Filed: 12/27/22 18:00> Narrative Exam Narrative: Reviewed vitals signs and nursing notes. General: cooperative, in no acute distress, well groomed, sitting wheelchair HEENT: symmetrical facial expressions, moist mucous membranes, neck is supple GI: abdomen soft, nontender to palpation in all quadrants, nondistended, without masses, rebound tenderness or CVA tenderness bilaterally. MSK: moves all extremities, neurovascularly intact, no weakness, normal tone, patient has tenderness over the MCL, no tenderness over patellar tendon, negative Indu's, negative LCL tenderness. No ecchymosis, palpable joint effusion, no muscular weakness or sensation deficit. She has 2+ pulses to her PT and DP pulses to the right foot normal range of motion. Pain is exacerbated by bearing weight. Skin: brisk capillary refill, without rash or wound Neuro: normal speech and cognition, A&O x3, ambulatory, clear speech Initial Vital Signs Initial Vital Signs: Vital Signs Temperature 97.2 F L 12/27/22 15:51 Pulse Rate 71 12/27/22 15:51 Respiratory Rate 16 12/27/22 15:51 Blood Pressure 155/80 H 12/27/22 15:51 Pulse Oximetry 98 12/27/22 15:51 Oxygen Delivery Method Room Air 12/27/22 15:51 <Baljit Nesbitt DO - Last Filed: 12/27/22 18:05> Initial Vital Signs Initial Vital Signs: Vital Signs Temperature 97.2 F L 12/27/22 15:51 Pulse Rate 71 12/27/22 15:51 Respiratory Rate 16 12/27/22 15:51 Blood Pressure 155/80 H 12/27/22 15:51 Pulse Oximetry 98 12/27/22 15:51 Oxygen Delivery Method Room Air 12/27/22 15:51 Course <OTTO Rios - Last Filed: 12/27/22 18:00> Orders Ordered: ED Orders 12/27/22 16:06 XR knee RT 1to2V Stat Discontinued Medications Acetaminophen (Acetaminophen 325 Mg Tablet) 975 mg PO NOW ONE Stop: 12/27/22 16:07 Last Admin: 12/27/22 16:53 Dose: 975 mg Documented By: FLEX Ketorolac Tromethamine (Ketorolac 30 Mg/Ml Vial) 15 mg IM NOW ONE Stop: 12/27/22 16:07 Last Admin: 12/27/22 16:56 Dose: Not Given Documented By: TAMI Lidocaine (Lidocaine Patch 1 Each Adh..Patch) 1 each TOP NOW ONE Stop: 12/27/22 16:19 Last Admin: 12/27/22 16:53 Dose: 1 each Documented By: RLS Vital Signs Vital signs: Vital Signs - 8 hr 12/27/22 15:51 Temperature 97.2 F L Pulse Rate 71 Respiratory Rate 16 Blood Pressure 155/80 H Pulse Oximetry 98 Oxygen Delivery Method Room Air <Baljit Nesbitt DO - Last Filed: 12/27/22 18:05> Orders Ordered: ED Orders 12/27/22 16:06 XR knee RT 1to2V Stat Discontinued Medications Acetaminophen (Acetaminophen 325 Mg Tablet) 975 mg PO NOW ONE Stop: 12/27/22 16:07 Last Admin: 12/27/22 16:53 Dose: 975 mg Documented By: FLEX Ketorolac Tromethamine (Ketorolac 30 Mg/Ml Vial) 15 mg IM NOW ONE Stop: 12/27/22 16:07 Last Admin: 12/27/22 16:56 Dose: Not Given Documented By: TAMI Lidocaine (Lidocaine Patch 1 Each Adh..Patch) 1 each TOP NOW ONE Stop: 12/27/22 16:19 Last Admin: 12/27/22 16:53 Dose: 1 each Documented By: FLEX Vital Signs Vital signs: Vital Signs - 8 hr 12/27/22 15:51 Temperature 97.2 F L Pulse Rate 71 Respiratory Rate 16 Blood Pressure 155/80 H Pulse Oximetry 98 Oxygen Delivery Method Room Air [facility] - Extremity Injury (Lower) <OTTO Rios - Last Filed: 12/27/22 18:00> Imaging Data Extremity x-ray #1: Radiologist's Impression: No transfer of patient's x-ray report, right knee x-ray shows tricompartmental degenerative changes consistent with osteoarthritis with severe medial joint space narrowing which is consistent with patient's exam. She is not have a palpable knee effusion. No erythema, wound, she is not anticoagulated. MDM Narrative Medical decision making narrative: Chief Complaint: Right knee pain Independent historian: Patient Differential diagnoses include but are not limited to: Joint effusion, arthropathy, MCL injury, I have independently reviewed the patient's vital signs and nursing notes as well as prior records if available. Pertinent Imaging reviewed: Right knee x-ray shows that medial compartment as narrowed and patient has degenerative joint disease, arthropathy without acute osseous abnormality otherwise. Course of care: X-ray of right knee obtained as patient has not had recent imaging of this knee or any on record, she has a history of left total knee arthroplasty, complains of worsening pain with bearing weight to the right knee, denies weakness, has full range of motion, tenderness over the MCL on exam. She is afebrile, without numbness, tingling, has a history of diabetes but without wound, lower extremity edema, has 2+ pulses to the right PT and DP. Alcides wrap provided for patient as she reports sensation of instability and due to her anatomy, a knee immobilizer would not fit her well. Patient has history of left total knee arthroplasty and right knee x-ray shows medial joint space narrowing, subchondral sclerosis of the medial joint space with degenerative changes in the right knee, she has tenderness over the MCL and medial joint to palpation without erythema, rash. She was provided Alcides bandage, is allergic to opioids with projectile vomiting, is anticoagulated on Plavix so no NSAIDs were prescribed other than topical diclofenac and topical lidocaine. Encouraged patient to use Tylenol, ice, rest, a cane and/or walker to ambulate as necessary. She is encouraged to follow-up with Dr. Evelia Maher as this is who she intended to follow-up with prior to her CABG. She is ambulatory with a steady gait and a cane, she is provided a lidocaine patch and Tylenol in the emergency department today. Social considerations that may affect disposition: none Questions are addressed and there is agreement with the plan and for follow-up. Patient is appropriate for outpatient management. MIPS: This encounter doesn't have any diagnosis' associated with MIPS criteria. Discharge Plan Departure Patient Disposition: Home Clinical Impression: Arthropathy of right knee Acute knee pain Qualifiers: Laterality: right Qualified Code(s): M25.561 - Pain in right knee Degenerative joint disease of knee, right Qualifiers: Osteoarthritis type: primary Qualified Code(s): M17.11 - Unilateral primary osteoarthritis, right knee Instructions: Osteoarthritis, DI for Arthralgia, DI for Knee Pain Activity Restrictions/Additional Instructions: *You have been diagnosed with right knee pain this is secondary to the bones being on top of each other, similar to arthritis but worse because you have [id number]. I am sorry for your pain, this is pretty difficult to deal with. Unfortunately your reaction to medications makes your pain harder to treat. I recommend topical agents like diclofenac gel and lidocaine patches if you tolerate the adhesive, ice, rest, Alcides bandage for compression instability, using your cane, and Tylenol. I am sorry that you can not tolerate more pain relief than this however I encourage you to follow-up with Dr. Evelia Maher for another evaluation of your right knee. You definitely will discuss a right knee replacement. I have provided for you diclofenac gel, lidocaine patches, and I encourage you to use Tylenol 1000 mg every 6-8 hours as needed. Please use your cane so that you are getting around safely. If you need more pain control, please return to the emergency department or follow-up with Sarah Maher. Gabapentin is an option that we have not tried yet, it can make you sleepy however it is an option. *What to do: *Please continue to take your regular medications as directed. [ x] New medication prescriptions sent to your pharmacy: [ DOD] [ ] New medication written as a paper prescription [ ] No new medications given *Please follow up with your primary care provider in 2-3 days, call for an appointment. Let them know you were seen in the Emergency Department and that we asked that you be seen for follow-up. We will electronically transmit a record of today's note if your PCP is in our system *If you do not have a primary care provider please contact [phone] to establish care with one of the [facility] primary care providers. *Return to Emergency Department if you should have any new, worsening, or concerning symptoms, such as [fever greater than 101F, chills, worsening pain, persistent vomiting or other bothersome symptoms]. Prescriptions: New diclofenac sodium [Arthritis Pain (diclofenac)] 1 % gel 2 g topical QID PRN (Reason: knee pain) Qty: 100 1RF Rx Instructions: apply to single area of pain after 4 times daily AsperFlex (lidocaine HCl) 4 % ointment 1 ea topical Q4HR PRN (Reason: knee pain) Qty: 100 0RF acetaminophen [Tylenol] 325 mg tablet 975 mg PO Q6-8H PRN (Reason: fever or pain) Qty: 90 0RF No Action meclizine 12.5 mg Tablet 25 mg PO Q6HR PRN (Reason: Vertigo) Qty: 120 0RF ondansetron HCl [Zofran] 4 mg tablet 4 mg PO Q6H PRN (Reason: nausea and vomiting) Qty: 14 0RF acetaminophen-codeine 300-30 mg tablet 1 tab PO Q6H PRN (Reason: pain) Qty: 14 0RF Referrals: Evelai Maher MD [Physician] - Leona Thomas PA-C [Primary Care Provider] - Stand Alone Forms: Patient Portal/API <Baljit Nesbitt, DO - Last Filed: 12/27/22 18:05> [facility] ED [facility] Dr Nesbitt Co-Sign Statement: I was available for consultation during this patient's emergency department visit. This chart is signed by myself for administrative purposes only. I did not have direct contact with this patient during this visit. They were seen independently by the APC.
[2022-12-27] MEDS: LIDOCAINE PATCH 1 EACH ADH..PATCH TOP (16:53)
[2022-12-27] MEDS: ACETAMINOPHEN 325 MG TABLET 975 MG PO (16:53)
[2022-12-27 18:18] VITALS: BP 130/76; PULSE 64; RESP 19; O2SAT 95
== END 2022-12-27 18:19 | disposition home or self-care (01) ==
PROVIDERS: Emergency Provider Nurse Practitioner Critical Care Medicine; PCP Physician Assistant Medical
DX: M25.561 Pain in right knee (principal); M17.11 Unilateral primary osteoarthritis, right knee; Z79.01 Long term (current) use of anticoagulants
CPT/HCPCS: 73560; 99283; 99284

== ENCOUNTER 2023-03-25 20:11 | Emergency (ER) | payer OTHER, SELFPAY ==
[2018-03-28 19:57] VITALS: BMI 64.0
[2023-03-25 20:22] VITALS: BP 145/77; PULSE 117; RESP 20; TEMP 37.9; O2SAT 96; BMI 52.5
[2023-03-25 21:16] LABS: Influenza A - CEPHEID Flu A NEGATIVE (NEGATIVE); Influenza B - CEPHEID Flu B NEGATIVE (NEGATIVE); Respiratory Syncytial Virus Negative (Negative)
[2023-03-25 21:21] LABS: COVID-19 CEPHEID 4-PLEX PCR Negative (Negative)
--- NOTE | 2023-03-25 22:00 | ED.FEVER ---
HPI - Fever General Chief Complaint: Fever Stated Complaint: thinks she has RSV Time Seen by Provider: 03/25/23 21:59 Source: patient Mode of arrival: Ambulatory Limitations: no limitations History of Present Illness HPI Narrative: This is a 72-year-old female history of coronary artery disease, cardiac stents on aspirin 81 mg and Plavix with complaint of productive cough with clear sputum, shortness of breath since Thursday and developed a fever today. Patient states she is had nasal congestion. She has not had any chest pain or pressure. No lightheadedness or passing out. Denies any fatigue or exertional dyspnea. No nausea or vomiting, no diarrhea constipation, no urinary symptoms. No rash or skin changes. Patient states she takes aspirin, Plavix, Jardiance, Imdur, Cozaar, metformin, metoprolol, nitro as needed, pantoprazole and rosuvastatin. Patient states she has had knee surgeries in the past. No tobacco, no regular alcohol, no illicit. Patient follows with Cardiology through [place]. LEEANN thomas as her primary care. Related Data Previous Rx's Medication Instructions Recorded meclizine 12.5 mg tablet 25 mg PO Q6HR PRN Vertigo #120 tabs 03/30/18 acetaminophen 300 mg-codeine 30 mg 1 tab PO Q6H PRN pain #14 tabs 06/19/21 tablet ondansetron HCl 4 mg tablet 4 mg PO Q6H PRN nausea and 06/19/21 (Zofran) vomiting #14 tabs acetaminophen 325 mg tablet 975 mg PO Q6-8H PRN fever or pain 12/27/22 (Tylenol) #90 tabs diclofenac sodium 1 % topical gel 2 g topical QID PRN knee pain #100 12/27/22 (Arthritis Pain (diclofenac)) grams lidocaine HCl 4 % topical ointment 1 ea topical Q4HR PRN knee pain 12/27/22 (AsperFlex (lidocaine HCl)) #100 grams Allergies Allergy/AdvReac Type Severity Reaction Status Date / Time adhesive [ADHESIVE] Allergy Severe RASH Verified 05/21/22 13:00 PAPER/SILK TAPE OK aspartame [ASPARTAME] Allergy Severe COMA Verified 05/21/22 13:00 iodine [IODINE] Allergy Severe SOB, RASH Verified 05/21/22 13:00 latex [LATEX] Allergy Severe RASH Verified 05/21/22 13:00 Sulfa (Sulfonamide Allergy Severe RASH Verified 05/21/22 13:00 Antibiotics) [SULFA (SULFONAMIDE ANTIBIOTICS)] codeine [CODEINE] AdvReac Severe PROJECTILE Verified 05/21/22 13:00 VOMITING hydrocodone [HYDROCODONE] AdvReac Severe PROJECTILE Verified 05/21/22 13:00 VOMITING oxycodone [From OXYCONTIN] AdvReac Severe PROJECTILE Verified 05/21/22 13:00 VOMITING Review of Systems Review of Systems ROS Unobtainable: All systems reviewed & are unremarkable except as noted in HPI and below Patient History Medical History (Updated 03/26/23 @ 00:13 by Bushra Mercado DO) Diabetes Social History household members: none Smoking Status: Never smoker alcohol intake: never Smoking Status: Never smoker alcohol intake frequency: holidays/special occasions only Substance Use Type: does not use Exam Narrative Exam Narrative: GEN: well nourished, well appearing elderly female, alert and oriented x 3, patient appears to be in mild distress. HEENT: Atraumatic, pupils are equal round reactive to light, extraocular movements are intact, patient has some nasal congestion, there is no conjunctival pallor. Throat is clear without any exudates, erythema, tonsillar enlargement or uvular deviation HEART: Regular rate and rhythm without murmur, clicks, rubs. No swelling bilateral lower extremities. LUNGS:Lungs clear to auscultation, no wheezes, rales, crackles, chest moves symmetrically, no tachypnea or accessory muscle use. Patient has a little bit of a wet sounding cough. Able to speak in full sentences without issue. ABD:bowel sounds normal, soft, non-tender, no guarding, rebound, rigidity, no masses noted, no hepatosplenomegaly :No CVA tenderness MSCL: Non-tender, no muscle atrophy, muscles strength 5/5 upper and lower extremities, full range of motion, normal gait NEURO:CN 2-12 intact, sensation normal SKIN: No rash, erythema or other skin changes Initial Vital Signs Initial Vital Signs: Vital Signs Temperature 100.2 F H 03/25/23 20:22 Pulse Rate 117 H 03/25/23 20:22 Respiratory Rate 20 03/25/23 20:22 Blood Pressure 145/77 H 03/25/23 20:22 Pulse Oximetry 96 03/25/23 20:22 Oxygen Delivery Method Room Air 03/25/23 20:22 Course Orders Ordered: ED Orders 03/25/23 22:36 Chest [XR chest 2V] Stat Vital Signs Vital signs: Vital Signs - 8 hr 03/25/23 22:18 03/25/23 23:26 Temperature 98.9 F Pulse Rate 98 H 92 H Respiratory Rate 18 16 Blood Pressure 168/68 H Pulse Oximetry 98 95 Oxygen Delivery Method Room Air Room Air MDM - Fever Lab Data Labs: Lab Results 03/25/23 Range/Units 20:30 SARS-CoV-2 (PCR) Negative (Negative) Influenza A (RT-PCR) Flu a negative (NEGATIVE) Influenza B (RT-PCR) Flu b negative (NEGATIVE) RSV (PCR) Negative (Negative) Imaging Data Chest x-ray: Radiologist's Impression: Close Chest X-Ray (Signed) Boom Jc - 03/25/23 Launch?[place] [id number] XRay Report Signed Patient: Merle Chu MR#: [id number] : 1950 Acct:[id number] Age/Sex: 72 / F Date of Service: 03/25/23 Loc: ED Accession Number: [id number] ?? Procedure: XR chest 2V Ordering Provider: Bushra Mercado D.O. PROCEDURE:? XR CHEST 2V ? INDICATIONS:? fever, cough ? TECHNIQUE:? 2 views of the chest were acquired.? ? COMPARISON:? [facility], , XR CHEST 1V, 10/22/2022, 18:18. ? FINDINGS:? ? Surgical changes and devices:? None.? ? Lungs and pleura:? Lungs are clear.? No pleural effusions or pneumothorax.? ? Mediastinum:? Mediastinal contours are normal.? Heart size is normal.? ? Bones and chest wall:? No suspicious bony abnormalities.? Soft tissues appear unremarkable.? ? IMPRESSION:? ? 1.? No acute cardiopulmonary disease. ? ? ? Dictated by: Boom Jc M.D. on 03/25/2023 at 23:58 ? ? Approved by: Boom Jc M.D. on 03/25/2023 at 23:59?? MDM Narrative Medical decision making narrative: This is a 72-year-old female who presents with concern for RSV viral infection. Patient has had nasal congestion and cough with some clear productive sputum since Thursday it is Thursday night. Patient states she had a fever today, she is not had any chest pain she has had a little shortness of breath. She does have a cardiac history. Patient was slightly tachycardic upon arrival, temperature was 100.2? F but no ibuprofen or Tylenol given here both of these have not improve. Discussed with patient plan for chest x-ray she had for [facility] with COVID/RSV/influenza which is negative. My suspicion for CHF is lower but I did discuss obtaining lab work and further evaluation, after discussion patient elects not to and will proceed with chest x-ray. This shows no acute change. Discussed patient likely viral illness. We did discuss return precautions she does have multiple medical comorbidities to have a low threshold to return. Patient expresses understanding ambulated in the department without issue. All questions answered. Discharge Plan Departure Patient Disposition: Home Clinical Impression: Upper respiratory infection Instructions: DI for Viral Upper Respiratory Infection -- Adult Activity Restrictions/Additional Instructions: I suspect you have a viral upper respiratory infection today. Your COVID/RSV/influenza swab was negative. Chest x-ray does not show obvious signs of pneumonia. You can take Tylenol and/or ibuprofen as needed. Please return if new or worsening chest pain, shortness of breath, vomiting, lightheadedness or passing out, new swelling in your extremities, worsening cough or changes to sputum or other new or concerning changes. Prescriptions: No Action meclizine 12.5 mg Tablet 25 mg PO Q6HR PRN (Reason: Vertigo) Qty: 120 0RF ondansetron HCl [Zofran] 4 mg tablet 4 mg PO Q6H PRN (Reason: nausea and vomiting) Qty: 14 0RF acetaminophen-codeine 300-30 mg tablet 1 tab PO Q6H PRN (Reason: pain) Qty: 14 0RF diclofenac sodium [Arthritis Pain (diclofenac)] 1 % gel 2 g topical QID PRN (Reason: knee pain) Qty: 100 1RF Rx Instructions: apply to single area of pain after 4 times daily AsperFlex (lidocaine HCl) 4 % ointment 1 ea topical Q4HR PRN (Reason: knee pain) Qty: 100 0RF acetaminophen [Tylenol] 325 mg tablet 975 mg PO Q6-8H PRN (Reason: fever or pain) Qty: 90 0RF Referrals: Leona Thomas PA-C [Primary Care Provider] - Stand Alone Forms: Patient Portal/API
[2023-03-25 22:10] VITALS: BP 185/81; PULSE 106; RESP 22; TEMP 37.1; O2SAT 95
[2023-03-25 22:18] VITALS: BP 168/68; PULSE 98; RESP 18; TEMP 37.2; O2SAT 98
--- NOTE | 2023-03-25 22:36 | DI.RAD.S_ITS ---
PROCEDURE: XR CHEST 2V INDICATIONS: fever, cough TECHNIQUE: 2 views of the chest were acquired. COMPARISON: [facility], CR, XR CHEST 1V, 10/22/2022, 18:18. FINDINGS: Surgical changes and devices: None. Lungs and pleura: Lungs are clear. No pleural effusions or pneumothorax. Mediastinum: Mediastinal contours are normal. Heart size is normal. Bones and chest wall: No suspicious bony abnormalities. Soft tissues appear unremarkable. IMPRESSION: 1. No acute cardiopulmonary disease. Dictated by: Boom Jc M.D. on 03/25/2023 at 23:58 Approved by: Boom Jc M.D. on 03/25/2023 at 23:59
[2023-03-25 23:26] VITALS: PULSE 92; RESP 16; O2SAT 95
== END 2023-03-26 00:34 | disposition home or self-care (01) ==
PROVIDERS: Emergency Provider Emergency Medicine; PCP Physician Assistant Medical
DX: J06.9 Acute upper respiratory infection, unspecified (principal); R50.9 Fever, unspecified; R00.0 Tachycardia, unspecified; Z20.822 Contact with and (suspected) exposure to COVID-19
CPT/HCPCS: 0241U; 71046; 99282; 99283

== ENCOUNTER 2023-09-26 11:49 | Emergency (ER) | payer OTHER, SELFPAY ==
[2018-03-28 19:57] VITALS: BMI 64.0
--- NOTE | 2023-09-26 11:57 | ED.FEVER ---
HPI - Fever <Leroy Marquez PA-C - Last Filed: 09/26/23 13:00> General Chief Complaint: Upper Respiratory Symptoms Stated Complaint: cough/tired/fever T-3 Time Seen by Provider: 09/26/23 11:56 History of Present Illness HPI Narrative: This is a 73-year-old female presents emergency department due to a productive cough, sinus congestion, mild shortness of breath for the last 3 days. States that the highest fever was 101? F. denies any significant chest pain, abdominal pain, left arm pain, or any other concerning signs or symptoms. States that the mucus is green in color. Related Data Previous Rx's Medication Instructions Recorded meclizine 12.5 mg tablet 25 mg (2 x 12.5 mg) PO Q6HR PRN 03/30/18 Vertigo #120 tabs acetaminophen 300 mg-codeine 30 mg 1 tab PO Q6H PRN pain #14 tabs 06/19/21 tablet ondansetron HCl 4 mg tablet 4 mg PO Q6H PRN nausea and 06/19/21 (Zofran) vomiting #14 tabs acetaminophen 325 mg tablet 975 mg (3 x 325 mg) PO Q6-8H PRN 12/27/22 (Tylenol) fever or pain #90 tabs diclofenac sodium 1 % topical gel 2 g topical QID PRN knee pain #100 12/27/22 (Arthritis Pain (diclofenac)) grams lidocaine HCl 4 % topical ointment 1 ea topical Q4HR PRN knee pain 12/27/22 (AsperFlex (lidocaine HCl)) #100 grams Allergies Allergy/AdvReac Type Severity Reaction Status Date / Time adhesive [ADHESIVE] Allergy Severe RASH Verified 05/21/22 13:00 PAPER/SILK TAPE OK aspartame [ASPARTAME] Allergy Severe COMA Verified 05/21/22 13:00 iodine [IODINE] Allergy Severe SOB, RASH Verified 05/21/22 13:00 latex [LATEX] Allergy Severe RASH Verified 05/21/22 13:00 Sulfa (Sulfonamide Allergy Severe RASH Verified 05/21/22 13:00 Antibiotics) [SULFA (SULFONAMIDE ANTIBIOTICS)] codeine [CODEINE] AdvReac Severe PROJECTILE Verified 05/21/22 13:00 VOMITING hydrocodone [HYDROCODONE] AdvReac Severe PROJECTILE Verified 05/21/22 13:00 VOMITING oxycodone [From OXYCONTIN] AdvReac Severe PROJECTILE Verified 05/21/22 13:00 VOMITING Review of Systems <Leroy Marquez PA-C - Last Filed: 09/26/23 13:00> Review of Systems Narrative: GENERAL: Denies chills, fatigue, malaise, fever, sweats. HEENT: Reports productive cough, sinus congestion RESPIRATORY: Reports mild shortness of breath, dyspnea, cough, denies wheezing, hemoptysis, . CARDIOVASCULAR: Denies chest pain, palpitations, orthopnea, edema, GASTROINTESTINAL: Denies nausea, vomiting, abdominal pain, diarrhea, constipation, melena. : Denies dysuria, frequency, incontinence, hematuria, urinary retention. MUSCULOSKELETAL: denies weakness, joint pain, or bony pain SKIN: Denies rash, skin lesions, or other NEUROLOGIC: Denies weakness, headache, numbness, change in speech, confusion, seizures, incoordination. PSYCHIATRIC: No concerning psychosocial issues. 12 point review of systems is negative except for those stated above Patient History <Leroy Marquez PA-C - Last Filed: 09/26/23 13:00> Medical History (Updated 09/26/23 @ 13:00 by Leroy Marquez PA-C) Diabetes Social History household members: none Smoking Status: Never smoker alcohol intake: never Smoking Status: Never smoker alcohol intake frequency: holidays/special occasions only Substance Use Type: does not use Exam <Leroy Marquez PA-C - Last Filed: 09/26/23 13:00> Narrative Exam Narrative: GENERAL: Well-developed patient, in mild distress. HEAD: Atraumatic. Normocephalic. EYES: Pupils equal round and reactive. Extraocular motions intact. No scleral icterus. No injection or drainage. ENT: Nose without bleeding, purulent drainage. Throat without erythema, tonsillar hypertrophy or exudate. Airway patent. NECK: Trachea midline. Non tender CARDIOVASCULAR: Regular rate and rhythm without murmurs, gallops, or rubs. RESPIRATORY: Clear to auscultation. Breath sounds equal bilaterally. No wheezes, rales, or rhonchi. GASTROINTESTINAL: Abdomen soft, non-tender, nondistended. EXTREMITIES: No edema or joint tenderness. BACK: Nontender without deformity or crepitance. No flank tenderness. NEURO: AOx3. SKIN: No rash or erythema of visible areas Initial Vital Signs Initial Vital Signs: Vital Signs Temperature 98.9 F 09/26/23 12:04 Pulse Rate 90 09/26/23 12:04 Respiratory Rate 20 09/26/23 12:04 Blood Pressure 132/62 09/26/23 12:04 Pulse Oximetry 97 09/26/23 12:04 Oxygen Delivery Method Room Air 09/26/23 12:04 <Elinor Conner DO - Last Filed: 10/01/23 09:58> Initial Vital Signs Initial Vital Signs: Vital Signs Temperature 98.9 F 09/26/23 12:04 Pulse Rate 90 09/26/23 12:04 Respiratory Rate 20 09/26/23 12:04 Blood Pressure 132/62 09/26/23 12:04 Pulse Oximetry 97 09/26/23 12:04 Oxygen Delivery Method Room Air 09/26/23 12:04 Course <Leroy Marquez PA-C - Last Filed: 09/26/23 13:00> Orders Ordered: ED Orders 09/26/23 12:03 XR chest 2V Stat Covid-19 + FLU A/B + RSV - PCR Stat Vital Signs Vital signs: Vital Signs - 8 hr 09/26/23 12:04 Temperature 98.9 F Pulse Rate 90 Respiratory Rate 20 Blood Pressure 132/62 Pulse Oximetry 97 Oxygen Delivery Method Room Air <Elinor Conner DO - Last Filed: 10/01/23 09:58> Orders Ordered: ED Orders 09/26/23 12:03 XR chest 2V Stat Covid-19 + FLU A/B + RSV - PCR Stat Vital Signs Vital signs: Vital Signs - 8 hr 09/26/23 12:04 Temperature 98.9 F Pulse Rate 90 Respiratory Rate 20 Blood Pressure 132/62 Pulse Oximetry 97 Oxygen Delivery Method Room Air MDM - Fever <WESTLEY Denton Last Filed: 09/26/23 13:00> Lab Data Labs: Lab Results 09/26/23 Range/Units 12:02 SARS-CoV-2 (PCR) Negative (Negative) Influenza A (RT-PCR) Flu a negative (NEGATIVE) Influenza B (RT-PCR) Flu b negative (NEGATIVE) RSV (PCR) Negative (Negative) Imaging Data Chest x-ray: Radiologist's Impression: Close Chest X-Ray (Signed) Sanjay Leblanc - 09/26/23 Launch?Image [address] [address] XRay Report Signed Patient: Merle Chu MR#: [id number] : 1950 Acct:[id number] Age/Sex: 73 / F Date of Service: 09/26/23 Loc: ED Accession Number: [id number] Procedure: XR chest 2V Ordering Provider: Leroy Marquez P.A-C PROCEDURE: XR CHEST 2V INDICATIONS: Cough and SOB TECHNIQUE: 2 views of the chest were acquired. COMPARISON: [facility], , XR CHEST 2V, 03/25/2023, 22:40. FINDINGS: Surgical changes and devices: None. Lungs and pleura: Lungs are clear. No pleural effusions or pneumothorax. Mediastinum: Mediastinal contours are normal. Heart size is normal. Bones and chest wall: No suspicious bony abnormalities. Soft tissues appear unremarkable. IMPRESSION: No acute cardiopulmonary abnormality is seen. Dictated by: Sanjay Leblanc M.D. on 09/26/2023 at 11:44 Approved by: Sanjay Leblanc M.D. on 09/26/2023 at 11:45 MDM Narrative Medical decision making narrative: MDM * differential diagnosis includes but not limited to pneumonia, CHF exacerbation, COPD exacerbation, asthma, viral URI, COVID, bacterial pharyngitis * Prior records reviewed: Patient was seen here 6 months ago due to a upper respiratory infection. History of CAD, cardiac stents on aspirin and Plavix. Initially came in for productive cough. Chest x-ray unremarkable. COVID, RSV, influenza testing negative. Discharge for likely viral illness. * My lab interpretation: COVID, flu, RSV testing negative. * My imgaing interpretation: Chest x-ray unremarkable * Clinical Decision Rules/Scores evaluated: None * Independent discussions with: None ED Course: This is a 73-year-old female presents emergency department complaining of 3 days of URI symptoms suspected to be viral in nature. Her COVID, flu, RSV testing was negative. All vitals were within normal limits. Chest x-ray showed no pneumonia or other concerning findings. Recommended symptomatic [id number] management. Shared Decision Making: Discussed plan with the patient was comfortable with the plan. Social Considerations: None Disposition: Discharged to home <Elinor Conner, - Last Filed: 10/01/23 09:58> Lab Data Labs: Lab Results 09/26/23 Range/Units 12:02 SARS-CoV-2 (PCR) Negative (Negative) Influenza A (RT-PCR) Flu a negative (NEGATIVE) Influenza B (RT-PCR) Flu b negative (NEGATIVE) RSV (PCR) Negative (Negative) Discharge Plan Departure Patient Disposition: Home Clinical Impression: Upper respiratory infection, viral Activity Restrictions/Additional Instructions: Thank you for coming to the [facility] Emergency Department today. As we discussed your chest x-ray showed no evidence of pneumonia or other concerning abnormalities. Your COVID, flu, RSV testing was also negative. I suspect this is a viral upper respiratory tract infection that should improve over the next week or so. You may use DayQuil, NyQuil, Mucinex, Tylenol for any fevers, to help with your symptoms. I recommend rest and plenty of fluids. I hope you feel better soon. Please follow up with your primary care provider within a week if your symptoms continue. If you do not have a primary care provider please contact the [facility] Resource line at [phone]. They will ask some questions about your medical history and help you get set up with a provider in the community. Prescriptions: No Action meclizine 12.5 mg Tablet 25 mg PO Q6HR PRN (Reason: Vertigo) Qty: 120 0RF ondansetron HCl [Zofran] 4 mg tablet 4 mg PO Q6H PRN (Reason: nausea and vomiting) Qty: 14 0RF acetaminophen-codeine 300-30 mg tablet 1 tab PO Q6H PRN (Reason: pain) Qty: 14 0RF diclofenac sodium [Arthritis Pain (diclofenac)] 1 % gel 2 g topical QID PRN (Reason: knee pain) Qty: 100 1RF Rx Instructions: apply to single area of pain after 4 times daily AsperFlex (lidocaine HCl) 4 % ointment 1 ea topical Q4HR PRN (Reason: knee pain) Qty: 100 0RF acetaminophen [Tylenol] 325 mg tablet 975 mg PO Q6-8H PRN (Reason: fever or pain) Qty: 90 0RF Referrals: Leona Thomas PA-C [Primary Care Provider] - Stand Alone Forms: Patient Portal/API ED Sign-out <Elinor Conner, - Last Filed: 10/01/23 09:58> Cosign ED Attending Cosignature Attestation: I was available for consultation.
--- NOTE | 2023-09-26 12:03 | DI.RAD.S_ITS ---
PROCEDURE: XR CHEST 2V INDICATIONS: Cough and SOB TECHNIQUE: 2 views of the chest were acquired. COMPARISON: [facility], CR, XR CHEST 2V, 03/25/2023, 22:40. FINDINGS: Surgical changes and devices: None. Lungs and pleura: Lungs are clear. No pleural effusions or pneumothorax. Mediastinum: Mediastinal contours are normal. Heart size is normal. Bones and chest wall: No suspicious bony abnormalities. Soft tissues appear unremarkable. IMPRESSION: No acute cardiopulmonary abnormality is seen. Dictated by: Sanjay Leblanc M.D. on 09/26/2023 at 11:44 Approved by: Sanjay Leblanc M.D. on 09/26/2023 at 11:45
[2023-09-26 12:04] VITALS: BP 132/62; PULSE 90; RESP 20; TEMP 37.2; O2SAT 97; BMI 70.7
[2023-09-26 12:51] LABS: Influenza A - CEPHEID Flu A NEGATIVE (NEGATIVE); Influenza B - CEPHEID Flu B NEGATIVE (NEGATIVE); Respiratory Syncytial Virus Negative (Negative)
[2023-09-26 12:52] LABS: COVID-19 CEPHEID 4-PLEX PCR Negative (Negative)
[2023-09-26 13:06] VITALS: BP 138/64; PULSE 75; RESP 18; O2SAT 96
== END 2023-09-26 13:08 | disposition home or self-care (01) ==
PROVIDERS: Emergency Provider Physician Assistant Medical; PCP Physician Assistant Medical
DX: J06.9 Acute upper respiratory infection, unspecified (principal)
CPT/HCPCS: 0241U; 71046; 99283

== ENCOUNTER 2025-01-24 18:55 | Emergency (ER) | payer MEDICARE, OTHER, SELFPAY ==
[2018-03-28 19:57] VITALS: BMI 64.0
[2025-01-24] VITALS (12 sets, daily range): BP systolic 147–169; BP diastolic 72–82; PULSE 79–106; RESP 18–24; TEMP 36.6; O2SAT 92–96; BMI 52.8
--- NOTE | 2025-01-24 19:05 | EKG_ITS ---
[place] [address] [place] [id number] Test Date: 2025-01-24 Pat Name: Merle Chu Department: [facility] Room: Gender: Female Ingot Stripper: MIGEL : 1950 Requested By: Order Number: [id number] Reading MD: Mike Lozoya Measurements Intervals [place] Rate: 94 P: 7 ME: 172 QRS: -33 QRSD: 74 T: 23 QT: 340 QTc: 425 Interpretive Statements Normal sinus rhythm Left axis deviation Minimal voltage criteria for LVH, may be normal variant ( R in aVL ) Electronically Signed On 01-31-2025 20:07:01 PDT by Mike Lozoya
--- NOTE | 2025-01-24 19:05 | DI.RAD.S_ITS ---
PROCEDURE: XR CHEST 1V INDICATIONS: Shortness of breath TECHNIQUE: One view of the chest was acquired. COMPARISON: [facility], CR, XR CHEST 2V, 09/26/2023, 12:08. [facility], CR, XR CHEST 2V, 03/25/2023, 22:40. [facility], CR, XR CHEST 1V, 10/22/2022, 18:18. [facility], CR, XR CHEST 1V, 03/28/2018, 13:50. FINDINGS: Surgical changes and devices: None. Lungs and pleura: Lungs are clear. No pleural effusions or pneumothorax. Mediastinum: Mediastinal contours appear normal. Heart size is normal. Bones and chest wall: No suspicious bony lesions. Overlying soft tissues appear unremarkable. IMPRESSION: No acute cardiothoracic process. Dictated by: Cuauhtemoc Ramon M.D. on 01/24/2025 at 19:48 Approved by: Cuauhtemoc Ramon M.D. on 01/24/2025 at 19:48
[2025-01-24 19:53] LABS: Add Manual Diff / Slide Review NO; Basophils Absolute Auto 100 /uL (0-100); Eosinophils Absolute Auto 200 /uL (0-450); Eosinophils Percent Auto 2.8 % (2-4); Hematocrit 44.1 % (36-46); Hemoglobin 14.9 g/dL (12.0-16.0); Lymphocytes Absolute Auto 1100 /uL (1100-4500); Lymphocytes Percent Auto 16.6 % (25-40); Mean Corpuscular HGB Conc 33.8 % (30-36); Mean Corpuscular Hemoglobin 30.6 PG (26-34); Mean Corpuscular Volume 90.5 fL (80-100); Monocytes Absolute Auto 500 /uL (0-900); Monocytes Percent Auto 7.2 % (3-14); Neutrophils Absolute Auto 4700 /uL (1500-7000); Neutrophils Percent Auto 72.4 % (50-75); Platelet Count 217 X10^3/uL (150-400); Red Blood Cell Count 4.87 X10^6/uL (4.0-5.2); Red Cell Distribution Width 14.2 % (11.6-14.8); White Blood Cell Count 6.5 X10^3/uL (4.5-11.0)
[2025-01-24 19:54] LABS: INR 1.1 (0.9-1.3); Prothrombin Time 11.9 SECONDS (9.4-12.5)
[2025-01-24 19:58] LABS: Lactate (Lactic Acid) 1.7 mmol/L (0.7-2.1)
[2025-01-24 19:59] LABS: Alanine Aminotransferase 18 IU/L (<35); Alkaline Phosphatase 99 U/L (38-126); Aspartate Aminotransferase 28 IU/L (14-36); BUN Creatinine Ratio 17.5 (6-22); Bilirubin Total 1.1 mg/dL (0.2-1.3); Blood Urea Nitrogen 11 mg/dL (7-17); Calcium 9.5 mg/dL (8.4-10.2); Carbon Dioxide 24 mmol/L (22-32); Chloride 106 mmol/L (98-107); Estimated Glomerular Filt Rate > 60 mL/min (>60); Glucose 155 mg/dL (80-110); HEMOLYSIS < 15 (0-50); Potassium 4.4 mmol/L (3.4-5.1); Sodium 139 mmol/L (137-145)
[2025-01-24 20:11] LABS: NT-proBNP (BNP-Adult 18+) 32 pg/mL (<125); Troponin I < 0.012 ng/mL (0.01-0.034)
[2025-01-24 20:23] LABS: COVID-19 CEPHEID 4-PLEX PCR Negative (Negative); Influenza A - CEPHEID Flu A NEGATIVE (NEGATIVE); Influenza B - CEPHEID Flu B NEGATIVE (NEGATIVE); Respiratory Syncytial Virus Negative (Negative)
[2025-01-24 21:56] LABS: Appearance Urine UA SL CLOUDY; Bilirubin Urine UA NEGATIVE (NEGATIVE); Color Urine UA YELLOW; Glucose Urine UA NEGATIVE (Negative); Ketones Urine UA NEGATIVE (NEGATIVE); Leukocyte Esterase Urine UA TRACE (NEGATIVE); Nitrite Urine UA POSITIVE (Negative); Occult Blood Urine UA 1+ (Negative); Protein Urine UA NEGATIVE (Negative); Specific Gravity Urine UA 1.015 (1.000-1.035); pH Urine UA 7.5 (4.5-8.0)
[2025-01-24 22:02] LABS: Bacteria Urine Many (>30); Culture Indicated Urine Specimen Cultured; RBC Urine 0-1/HPF (0-5/HPF); Squamous Epithelial Cell Urine 0-1 /HPF (0-5/HPF); Urine Volume 10mL (spun); WBC Urine 1-5/HPF (0-5/HPF)
--- NOTE | 2025-01-24 22:54 | ED_ITS ---
HPI - SOB/Dyspnea General Chief Complaint: Shortness of Breath/Dyspnea Stated Complaint: cough, headache Time Seen by Provider: 01/24/25 22:53 Source: patient Mode of arrival: Ambulatory History of Present Illness HPI Narrative: 74-year-old female past medical history of , comes into the ED from home for evaluation of cough. She states that she has been having a cough since she had a heart catheterization on 01/20/2025. She states that she is worried she might have caught a virus while she was in the hospital, she denies any actual shortness of breath. She states that she had a heart catheterization due to history of unstable angina, states that she tolerated the procedure well. She denies any other symptoms such as headache visual disturbances nausea vomiting abdominal pain or any other GI/ symptoms time. Related Data Previous Rx's Medication Instructions Recorded meclizine 12.5 mg tablet 25 mg (2 x 12.5 mg) PO Q6HR PRN 03/30/18 Vertigo #120 tabs acetaminophen 300 mg-codeine 30 mg 1 tab PO Q6H PRN pain #14 tabs 06/19/21 tablet ondansetron HCl 4 mg tablet 4 mg PO Q6H PRN nausea and 06/19/21 (Zofran) vomiting #14 tabs acetaminophen 325 mg tablet 975 mg (3 x 325 mg) PO Q6-8H PRN 12/27/22 (Tylenol) fever or pain #90 tabs diclofenac sodium 1 % topical gel 2 g topical QID PRN knee pain #100 12/27/22 (Arthritis Pain (diclofenac)) grams lidocaine HCl 4 % topical ointment 1 ea topical Q4HR PRN knee pain 12/27/22 (AsperFlex (lidocaine HCl)) #100 grams benzonatate 100 mg capsule 100 mg PO BID PRN cough 1 week #14 01/24/25 caps cephalexin 500 mg capsule 500 mg PO Q8H 7 days #21 caps 01/24/25 Allergies Allergy/AdvReac Type Severity Reaction Status Date / Time adhesive [ADHESIVE] Allergy Severe RASH Verified 05/21/22 13:00 PAPER/SILK TAPE OK aspartame [ASPARTAME] Allergy Severe COMA Verified 05/21/22 13:00 iodine [IODINE] Allergy Severe SOB, RASH Verified 05/21/22 13:00 latex [LATEX] Allergy Severe RASH Verified 05/21/22 13:00 Sulfa (Sulfonamide Allergy Severe RASH Verified 05/21/22 13:00 Antibiotics) [SULFA (SULFONAMIDE ANTIBIOTICS)] codeine [CODEINE] AdvReac Severe PROJECTILE Verified 05/21/22 13:00 VOMITING hydrocodone [HYDROCODONE] AdvReac Severe PROJECTILE Verified 05/21/22 13:00 VOMITING oxycodone [From OXYCONTIN] AdvReac Severe PROJECTILE Verified 05/21/22 13:00 VOMITING Review of Systems Review of Systems Narrative: General: Denies fever, chills, weight loss HEENT: Denies headache, eye drainage, eye irritation, head trauma, sore throat, voice change Cardiovascular: Denies any chest pain, palpitations, tachycardia Respiratory: Positive cough Denies any shortness of breath, wheeze, stridor GI/: Denies any abdominal pain, nausea, vomiting, diarrhea, bright red blood per rectum, melanotic stools, urinary frequency, urinary retention, dysuria, hematuria MSK: Denies any joint pain, muscle pains, swelling Skin: Denies any rashes, lesions, discoloration Neuro: Denies any headache, lightheadedness, dizziness, fainting, weakness Psych: Denies SI/HI Patient History Medical History (Updated 01/24/25 @ 22:58 by Mike Fournier DO) Diabetes Social History household members: none alcohol intake: never Smoking Status: Never smoker alcohol intake frequency: holidays/special occasions only Exam Narrative Exam Narrative: General: Cooperative, well-developed, not in acute distress HEENT: Normocephalic, atraumatic, PERRLA, normal sclera, eyelids normal Neck: Active full range of motion, atraumatic Chest: Normal to inspection, negative crepitus, no overlying erythema ecchymosis Respiratory: Normal respiratory effort, not in acute respiratory distress, clear to auscultation bilaterally negative cough, wheeze, tachypnea, rhonchi, rales Cardiology: Regular rate rhythm negative gallop, murmur, rubs GI/: No tenderness to palpation, soft, non rigid, normal to inspection, exam deferred MSK: Full active range of motion in all 4 extremities, atraumatic, no tenderness to palpation of any bony prominences Skin: No rashes or lesions noted Neuro: Alert awake oriented x3, moves all 4 extremities spontaneously, cranial nerves intact, able to answer all questions appropriately follows commands appropriately Psych: Cooperative, negative suicidal or homicidal ideations Initial Vital Signs Initial Vital Signs: Vital Signs Temperature 97.8 F 01/24/25 18:59 Pulse Rate 106 H 01/24/25 18:59 Respiratory Rate 20 01/24/25 18:59 Blood Pressure 147/82 H 01/24/25 18:59 Pulse Oximetry 95 01/24/25 18:59 Oxygen Delivery Method Room Air 01/24/25 18:59 Course Orders Ordered: ED Orders 01/24/25 19:05 XR chest 1V Stat EKG-12 Lead Stat Measure peak expiratory flow ONCE RT Consult Eval and Treat NOW 01/24/25 19:10 Covid-19 + FLU A/B + RSV - PCR Stat 01/24/25 19:15 Complete Blood Count AUTO DIFF Stat Comprehensive Metabolic Panel Stat Lactate (Lactic Acid) Stat NT-proBNP (BNP-Adult 18+) Stat Prothrombin Time INR Stat Troponin I Stat 01/24/25 21:45 Urinalysis and Microscopic Stat Urine Culture Stat Vital Signs Vital signs: Vital Signs - 8 hr 01/24/25 18:59 01/24/25 19:29 01/24/25 19:30 Temperature 97.8 F Pulse Rate 106 H 93 H 94 H Respiratory Rate 20 23 24 Blood Pressure 147/82 H Pulse Oximetry 95 96 96 Oxygen Delivery Method Room Air 01/24/25 20:00 01/24/25 21:00 01/24/25 21:30 Temperature Pulse Rate 89 91 H 79 Respiratory Rate 23 18 21 Blood Pressure Pulse Oximetry 96 95 93 Oxygen Delivery Method 01/24/25 21:47 01/24/25 21:47 01/24/25 22:00 Temperature Pulse Rate 103 H 87 Respiratory Rate 18 24 Blood Pressure 169/73 H Pulse Oximetry 96 95 Oxygen Delivery Method MDM - SOB/Dyspnea Differential Diagnosis Differential diagnosis: Likely other (ACS, pneumonia, electrolyte abnormality, COVID, flu, RSV) Lab Data 01/24/25 19:15 01/24/25 19:15 Labs: Lab Results 01/24/25 01/24/25 01/24/25 Range/Units 19:10 19:15 21:45 WBC 6.5 (4.5-11.0) X10^3/uL RBC 4.87 (4.0-5.2) X10^6/uL Hgb 14.9 (12.0-16.0) g/dL Hct 44.1 (36-46) % MCV 90.5 (80-100) fL MCH 30.6 (26-34) PG MCHC 33.8 (30-36) % RDW 14.2 (11.6-14.8) % Plt Count 217 (150-400) X10^3/uL Neut % (Auto) 72.4 (50-75) % Lymph % (Auto) 16.6 L (25-40) % [place] % (Auto) 7.2 (3-14) % Eos % (Auto) 2.8 (2-4) % Baso % (Auto) 1.0 (0-2) % Neut # (Auto) 4700 (6498-8476) /uL Lymph # (Auto) 1100 (0695-7251) /uL [place]arro # (Auto) 500 (0-900) /uL Eos # (Auto) 200 (0-450) /uL Baso # (Auto) 100 (0-100) /uL PT 11.9 (9.4-12.5) SECONDS INR 1.1 (0.9-1.3) Sodium 139 (137-145) mmol/L Potassium 4.4 (3.4-5.1) mmol/L Chloride 106 (98-107) mmol/L Carbon Dioxide 24 (22-32) mmol/L BUN 11 (7-17) mg/dL Creatinine 0.63 (0.52-1.04) mg/dL Estimated GFR > 60 (>60) mL/min BUN/Creatinine Ratio 17.5 (6-22) Glucose 155 H (80-110) mg/dL Lactate 1.7 (0.7-2.1) mmol/L Calcium 9.5 (8.4-10.2) mg/dL Total Bilirubin 1.1 (0.2-1.3) mg/dL AST 28 (14-36) IU/L ALT 18 (<35) IU/L Alkaline Phosphatase 99 (38-126) U/L Troponin I < 0.012 (0.01-0.034) ng/mL NT-Pro-B Natriuret Pep 32 (<125) pg/mL Total Protein 8.0 (6.3-8.2) g/dL Albumin 4.0 (3.5-5.0) g/dL Globulin 4.0 (1.7-4.1) g/dL Albumin/Globulin Ratio 1.0 (1.0-2.8) Urine Color Yellow Urine Appearance Sl cloudy Urine pH 7.5 (4.5-8.0) Ur Specific [place] 1.015 (1.000-1.035) Urine Protein Negative (Negative) Urine Glucose (UA) Negative (Negative) g/dL Urine Ketones Negative (NEGATIVE) Urine Occult Blood 1+ H (Negative) Urine Nitrate Positive H (Negative) Urine Bilirubin Negative (NEGATIVE) Urine Urobilinogen 1.0 (0.2) E.U./dL Ur Leukocyte Esterase Trace H (NEGATIVE) Urine RBC 0-1/hpf (0-5/HPF) Urine WBC 1-5/hpf (0-5/HPF) Ur Squamous Epith Cells 0-1 /hpf (0-5/HPF) Urine Bacteria Many (>30) H (None) Ur Culture Indicated? Specimen cultured Vol Urine Centrifuged 10ml (spun) SARS-CoV-2 (PCR) Negative (Negative) Influenza A (RT-PCR) Flu a negative (NEGATIVE) Influenza B (RT-PCR) Flu b negative (NEGATIVE) RSV (PCR) Negative (Negative) Imaging Data Chest x-ray: Radiologist's Impression: [address] [address] XRay Report Signed Patient: Merle Chu MR#: [id number] : 1950 Acct:[id number] Age/Sex: 74 / F Date of Service: 01/24/25 Loc: ED Accession Number: [id number] Procedure: XR chest 1V Ordering Provider: Mike Fournier D.O. PROCEDURE: XR CHEST 1V INDICATIONS: Shortness of breath TECHNIQUE: One view of the chest was acquired. COMPARISON: [facility], CR, XR CHEST 2V, 09/26/2023, 12:08. [facility], CR, XR CHEST 2V, 03/25/2023, 22:40. [facility], CR, XR CHEST 1V, 10/22/2022, 18:18. [facility], CR, XR CHEST 1V, 03/28/2018, 13:50. FINDINGS: Surgical changes and devices: None. Lungs and pleura: Lungs are clear. No pleural effusions or pneumothorax. Mediastinum: Mediastinal contours appear normal. Heart size is normal. Bones and chest wall: No suspicious bony lesions. Overlying soft tissues appear unremarkable. IMPRESSION: No acute cardiothoracic process. ECG Data Interpretation: EKG interpreted ED physician sinus 94 beats per minute QTC 425 left axis deviation nonspecific ST changes no STEMI MDM Narrative Medical decision making narrative: 74-year-old female presenting for cough and upper respiratory symptoms since 01/20/2025 she states this is when she had a cardiac catheterization for history of unstable angina. She states that she is currently not having any chest pain, not having any other symptoms such as shortness of breath nausea vomiting abdominal pain or any other GI/ symptoms. She states that she has been feeling slightly feverish. Patient had chest x-ray without any acute cardiopulmonary abnormalities, lab work without any leukocytosis, Chem panel unremarkable, troponin negative, BNP 32, it is noted that patient had a urinalysis which was consistent with acute urinary tract infection, respiratory panel was negative. Patient will be sent home with oral antibiotics for her urinary tract infection, instructed follow up with the primary care doctor and electrical electronics technician in outpatient setting, she was given strict return precautions she verbalized understanding of this and agrees to being discharged home with outpatient follow up she will also be sent home with symptomatic relief for her cough Discharge Plan Departure Patient Disposition: Home Clinical Impression: Acute UTI, Cough Instructions: DI for Urinary Tract Infection (UTI) Activity Restrictions/Additional Instructions: Please follow up with your electrical electronics technician and your primary care doctor Please read the discharge instructions sheet carefully and bring all papers to all doctor follow-up visits, as it may contain information that your doctor may want to see. Disease processes change and evolve, if your symptoms worsen or if you develop any new symptoms that are concerning to you please return for evaluation. Your evaluation today does not show any evidence of any life- threatening/serious illnesses requiring admission to the hospital or surgery. Please follow-up with your doctor for re-evaluation in approximately 1 day. Seek immediate medical attention for any worrisome symptoms. *If you do not have a primary care provider please contact the [facility] Resource line at [phone]. They will ask some questions about your medical history and help get you set up with a doctor in the community. Prescriptions: New cephalexin 500 mg capsule 500 mg PO Q8H 7 Days Qty: 21 0RF benzonatate 100 mg capsule 100 mg PO BID PRN (Reason: cough) 7 Days Qty: 14 0RF No Action meclizine 12.5 mg Tablet 25 mg PO Q6HR PRN (Reason: Vertigo) Qty: 120 0RF ondansetron HCl [Zofran] 4 mg tablet 4 mg PO Q6H PRN (Reason: nausea and vomiting) Qty: 14 0RF acetaminophen-codeine 300-30 mg tablet 1 tab PO Q6H PRN (Reason: pain) Qty: 14 0RF diclofenac sodium [Arthritis Pain (diclofenac)] 1 % gel 2 g topical QID PRN (Reason: knee pain) Qty: 100 1RF Rx Instructions: apply to single area of pain after 4 times daily AsperFlex (lidocaine HCl) 4 % ointment 1 ea topical Q4HR PRN (Reason: knee pain) Qty: 100 0RF acetaminophen [Tylenol] 325 mg tablet 975 mg PO Q6-8H PRN (Reason: fever or pain) Qty: 90 0RF Referrals: Leona Thomas PA-C [Primary Care Provider] - Stand Alone Forms: Patient Portal/API/Survey
[2025-01-24] MEDS: cephALEXin 250 MG CAPSULE 500 MG PO (23:17)
== END 2025-01-24 23:30 | disposition home or self-care (01) ==
PROVIDERS: Emergency Provider Student in an Organized Health Care Education/Training Program; PCP Physician Assistant Medical
DX: N39.0 Urinary tract infection, site not specified (principal); R05.9 Cough, unspecified; R06.02 Shortness of breath
CPT/HCPCS: 0241U; 36415; 71045; 80053; 81001; 83605; 83880; 84484; 85025; 85610; 87077; 87086; 87186; 93005; 99284